=== PATIENT | male | born 1990 | race Caucasian/White ===

== ENCOUNTER 2017-09-13 16:41 | Emergency (ER) | payer OTHER ==
[2017-09-13 17:08] VITALS: BP 134/84; PULSE 71; TEMP 98.5; BMI 25.7
[2017-09-13] MEDS ORDERED: DIPHTH,PERTUSS(ACELL),TET 0.5 ML DISP.SYRIN IM ONE (17:42)
[2017-09-13] MEDS ORDERED: SULFAMETHOXAZOLE/TRIMETHOPRIM 800MG/160MG D.S. TABLET PO ONE (17:42)
[2017-09-13] MEDS ORDERED: SULFAMETHOXAZOLE/TRIMETHOPRIM 800MG/160MG D.S. TABLET ONE (17:44)
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
[2017-09-13] MEDS ORDERED: CEPHALEXIN MONOHYDRATE 500 MG CAPSULE (UD) PO ONE (18:40)
[2017-09-13] MEDS ORDERED: CEPHALEXIN MONOHYDRATE 250 MG CAPSULE (FP) ONE (19:34)
== END 2017-09-13 20:04 | disposition home or self-care (01) ==
LOC: JER 16:41
DX: L03.113 Cellulitis of right upper limb (principal); S61.411A Laceration without foreign body of right hand, initial encounter; W25.XXXA Contact with sharp glass, initial encounter; Y93.89 Activity, other specified; Y92.69 Other specified industrial and construction area as the place of occurrence of the external cause; Y99.0 Civilian activity done for income or pay; F10.10 Alcohol abuse, uncomplicated; F11.10 Opioid abuse, uncomplicated; F13.10 Sedative, hypnotic or anxiolytic abuse, uncomplicated
CPT/HCPCS: 73130-TC-RT; 99281-25

== ENCOUNTER 2017-11-30 20:39 | Inpatient (IN) | payer MEDICARE, OTHER ==
[2017-11-30 21:36] VITALS: BMI 24.4
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
[2017-11-30] MEDS ORDERED: P-EPHED 60MG/TRIPROLIDI 2.5MG TABLET PO PRN (22:37)
[2017-11-30] MEDS ORDERED: MAG HYDROX/AL HYDROX/SIMETH 30 ML UNIT-DOSE CUP PO PRN (22:37)
[2017-11-30] MEDS ORDERED: LOPERAMIDE HCL 2 MG CAPSULE PO PRN (22:37)
[2017-11-30] MEDS ORDERED: hydrOXYzine PAMOATE 50 MG CAPSULE (FP) PO PRN (22:37)
[2017-11-30] MEDS ORDERED: ACETAMINOPHEN 325 MG TABLET (FP) PO PRN (22:37)
[2017-11-30] MEDS ORDERED: MENTHOL/PHENOL 1 EACH UD MM PRN (22:37)
[2017-11-30] MEDS ORDERED: MAGNESIUM HYDROX 2400MG/30ML ORAL SUSPENSION 30 ML CUP PO PRN (22:37)
[2017-11-30] MEDS ORDERED: METHADONE HCL 10 MG TABLET (FOR DETOX USE ONLY) PO ONE ×2 (22:37→23:00)
[2017-11-30] MEDS ORDERED: MAGNESIUM CITRATE 300 ML BOTTLE PO PRN (22:37)
[2017-11-30] MEDS ORDERED: IBUPROFEN 400 MG TABLET (FP) PO PRN (22:37)
[2017-11-30] MEDS ORDERED: guaiFENesin/D-METHORPHAN HB 10 ML UNIT-DOSE CUPS PO PRN (22:37)
[2017-11-30] MEDS: diazePAM 5 MG TABLET PO PRN (23:26)
[2017-11-30 23:41] LABS: URINE APPEARANCE CLEAR; URINE BILIRUBIN NEGATIVE (NEGATIVE); URINE BLOOD NEGATIVE (NEGATIVE); URINE COLOR DKYELLOW; URINE GLUCOSE (UA) NEGATIVE (NEGATIVE); URINE KETONE NEGATIVE (NEGATIVE); URINE LEUK ESTERASE NEGATIVE (NEGATIVE); URINE NITRITE NEGATIVE (NEGATIVE); URINE PROTEIN NEGATIVE (NEGATIVE)
[2017-12-01] MEDS: diazePAM 5 MG TABLET PO PRN ×4 (04:39→21:01)
--- NOTE | 2017-12-01 09:42 | PN ---
BHS COWS - Scale Resting Pulse: 0= [place] 80 or Below Sweatin= Chills/Flushing Restless Observation: 1= Difficult to Sit Still Pupil Size: 0= Normal to Room Light Bone or Joint Aches: 2= Severe Diffuse Aches Runny Nose/ Eye Tearin= Nasal Congestion GI Upset > 30mins: 1= Stomach Cramp Tremor Observation of Outstretched Hands: 1= Tremor [place], Not Seen Yawning Observation: 0= None Anxiety or Irritability: 1=Feels Anxious/Irritable Goose Flesh Skin: 0=Smooth Skin COWS Score: 8 BHS Progress Note (SOAP) Subjective: sweat anxiety restlessness general body aches Objective: 12/01/17 09:42 Vital Signs Temperature 98.1 F 12/01/17 06:12 Pulse Rate 61 12/01/17 06:12 Respiratory Rate 16 12/01/17 06:12 Blood Pressure 91/50 12/01/17 06:12 O2 Sat by Pulse Oximetry (%) Laboratory Last Values Urine Color Dkyellow 11/30/17 Unknown Urine Appearance Clear 11/30/17 Unknown Urine pH 5.0 (5.0-8.0) 11/30/17 Unknown Ur Specific [place] 1.032 (1.001-1.035) 11/30/17 Unknown Urine Protein Negative (NEGATIVE) 11/30/17 Unknown Urine Glucose (UA) Negative (NEGATIVE) 11/30/17 Unknown Urine Ketones Negative (NEGATIVE) 11/30/17 Unknown Urine Blood Negative (NEGATIVE) 11/30/17 Unknown Urine Nitrite Negative (NEGATIVE) 11/30/17 Unknown Urine Bilirubin Negative (NEGATIVE) 11/30/17 Unknown Urine Urobilinogen 2.0 mg/dL (0.2-1.0) 11/30/17 Unknown Ur Leukocyte Esterase Negative (NEGATIVE) 11/30/17 Unknown lab noted Assessment: 12/01/17 09:44 withdrawal sx Plan: continue detox increase oral fluid
[2017-12-01] MEDS ORDERED: METHADONE HCL 10 MG TABLET (FOR DETOX USE ONLY) PO ONE (10:00)
[2017-12-01 10:11] LABS: BILIRUBIN,TOTAL 0.4 mg/dL (0.2-1.0); CHLORIDE 106 mmol/L (98-107); POTASSIUM 3.8 mmol/L (3.5-5.1); SGOT/AST 15 U/L (15-37); SGPT/ALT 24 U/L (12-78); SODIUM 142 mmol/L (136-145); TOT PROT 6.6 g/dl (6.4-8.2)
[2017-12-01 10:20] LABS: ALBUMIN 3.7 g/dl (3.4-5.0); ALK PHOS 59 U/L (45-117); ANION GAP 8 (8-16); BLOOD UREA NITROGEN 17 mg/dL (7-18); CALCIUM 8.3 mg/dL (8.5-10.1); CO2 28 mmol/L (21-32); CREATININE 0.9 mg/dL (0.7-1.3); GLUCOSE,RANDOM 84 mg/dL (74-106)
[2017-12-01] MEDS: PRENATAL VITAMINS W/ FOLIC ACID TABLET (FP) PO SCH (10:21)
[2017-12-01] MEDS: BACITRACIN 0.9 GM PACKET TP SCH (10:21)
[2017-12-01] MEDS: NICOTINE 21 MG/24 HOURS TOPICAL PATCH TD SCH (10:23)
[2017-12-01 10:25] LABS: HEMATOCRIT 39.9 % (35.4-49); HEMOGLOBIN 12.9 GM/dL (11.7-16.9); MCH 30.2 pg (25.7-33.7); MCHC 32.4 g/dl (32.0-35.9); MEAN CELL VOLUME 93.2 fl (80-96); MEAN PLT VOLUME 9.6 fl (7.5-11.1); PLATELET COUNT 158 K/MM3 (134-434); RBC 4.28 M/mm3 (4.00-5.60); RDW 13.7 % (11.9-15.9); WHITE BLOOD COUNT 6.6 K/mm3 (4.0-10.0)
--- NOTE | 2017-12-01 11:53 | CONSULT ---
[facility] Psychiatric Consult - Data Date of interview: 12/01/17 Admission source: [facility] Identifying data: Pt is a 27 year old male, single, without children, unemployed and currently homeless. This is one of multiple admissions for patient. Pt. admitted to for opiate dependence. Substance Abuse History: Following information confirmed with Mr. Pollard: Smoking Cessation. Smoking history: Current every day smoker. Have you smoked in the past 12 months: Yes. Aproximately how many cigarettes per day: 20. Cigars Per Day: 0. Hx Chewing Tobacco Use: No. Initiated information on smoking cessation: Yes. 'Breaking Loose' booklet given: 11/30/17. - Substance & Tx. History. Hx Alcohol Use: No. Hx Substance Use: Yes. Substance Use Type : Heroin, Opiates. Hx Substance Use Treatment: Yes ([facility] a year ago and [facility] March 2017). - Substances Abused. Heroin. Route: Injection. Frequency: Daily. Amount used: 10 BAGS. Age of first use: 20. Date of Last Use: 11/30/17. Oxycontin. Route: Inhalation. Frequency: No use in 30 days. Amount used: 6 - 7 pills / day. Age of first use: 21. Date of Last Use: 11/02/16 Medical History: Heat murmur, hypercholesterolemia and Hx Thyroid Disease: Yes ( 2 NODULES, NO TX YET, PER PATIENT CURRENTLY MONITORED ) Psychiatric History: Pt. denies h/o psychiatric hospitalizations, suicide attempts, and OPC. Pt. c/o insomnia. Physical/Sexual Abuse/Trauma History: Denies. Mental Status Exam - Mental Status Exam Alert and Oriented to: Time, Place, Person Cognitive Function: Good Patient Appearance: Well Groomed Mood: Euthymic Affect: Mood Congruent Patient Behavior: Appropriate, Cooperative Speech Pattern: Clear, Appropriate Voice Loudness: Normal Thought Process: Goal Oriented Thought Disorder: Not Present Hallucinations: Denies Suicidal Ideation: Denies Homicidal Ideation: Denies Insight/Judgement: Poor Sleep: Poorly Appetite: Fair Muscle strength/Tone: Normal Gait/Station: Normal Psychiatric Findings - Problem List ([place] 1, 2,3) (1) Insomnia Current Visit: Yes Status: Acute (2) Opioid dependence Current Visit: Yes Status: Acute (3) Opioid dependence with withdrawal Current Visit: Yes Status: Acute (4) Substance induced mood disorder Current Visit: No Status: Suspected - Initial Treatment Plan Initial Treatment Plan: Psychoeducation provided. Detoxification in progress. Benadryl 50mg qhs prn ordered for insomnia. Pt. reports favorable effect from previously taking benadryl. Verbal consent given. Will continue to monitor.
--- NOTE | 2017-12-01 14:08 | EKG ---
Test Reason : Blood Pressure : / mmHG Vent. Rate : 073 BPM Atrial Rate : 073 BPM P-R Int : 164 ms QRS Dur : 086 ms QT Int : 372 ms P-R-T Axes : 002 018 022 degrees QTc Int : 409 ms NORMAL SINUS RHYTHM NORMAL ECG NO PREVIOUS ECGS AVAILABLE Confirmed by MD ROBERT, LEEANN ([id number]) on 12/01/2017 2:08:16 PM Also confirmed by MD Manuel Edward ([id number]) on 12/01/2017 2:08:34 PM Referred By: Confirmed By:Darryl Manuel MD
[2017-12-01] MEDS: NICOTINE POLACRILEX 2 MG GUM BC PRN ×2 (14:58→21:01)
[2017-12-01] MEDS ORDERED: diphenhydrAMINE HCL 50 MG CAPSULE PO PRN (22:00)
[2017-12-01] MEDS: THIAMINE HCL 100 MG TABLET (FP) PO SCH (22:28)
--- NOTE | 2017-12-02 09:14 | PN ---
BHS COWS - Scale Resting Pulse: 0= [place] 80 or Below Sweatin= Chills/Flushing Restless Observation: 1= Difficult to Sit Still Pupil Size: 0= Normal to Room Light Bone or Joint Aches: 2= Severe Diffuse Aches Runny Nose/ Eye Tearin= Nasal Congestion GI Upset > 30mins: 1= Stomach Cramp Tremor Observation of Outstretched Hands: 1= Tremor [place], Not Seen Yawning Observation: 0= None Anxiety or Irritability: 1=Feels Anxious/Irritable Goose Flesh Skin: 0=Smooth Skin COWS Score: 8 BHS Progress Note (SOAP) Subjective: sweat anxiety joint aches Objective: 12/02/17 09:13 Vital Signs Temperature 96.1 F L 12/02/17 06:19 Pulse Rate 58 L 12/02/17 06:19 Respiratory Rate 16 12/02/17 06:19 Blood Pressure 90/51 12/02/17 06:19 O2 Sat by Pulse Oximetry (%) Laboratory Last Values WBC 6.6 K/mm3 (4.0-10.0) 12/01/17 07:00 RBC 4.28 M/mm3 (4.00-5.60) 12/01/17 07:00 Hgb 12.9 GM/dL (11.7-16.9) 12/01/17 07:00 Hct 39.9 % (35.4-49) 12/01/17 07:00 MCV 93.2 fl (80-96) 12/01/17 07:00 MCH 30.2 pg (25.7-33.7) 12/01/17 07:00 MCHC 32.4 g/dl (32.0-35.9) 12/01/17 07:00 RDW 13.7 % (11.9-15.9) 12/01/17 07:00 Plt Count 158 K/MM3 (134-434) 12/01/17 07:00 MPV 9.6 fl (7.5-11.1) 12/01/17 07:00 Sodium 142 mmol/L (136-145) 12/01/17 07:00 Potassium 3.8 mmol/L (3.5-5.1) 12/01/17 07:00 Chloride 106 mmol/L (98-107) 12/01/17 07:00 Carbon Dioxide 28 mmol/L (21-32) 12/01/17 07:00 Anion Gap 8 (8-16) 12/01/17 07:00 BUN 17 mg/dL (7-18) 12/01/17 07:00 Creatinine 0.9 mg/dL (0.7-1.3) 12/01/17 07:00 Creat Clearance w eGFR > 60 (>60) 12/01/17 07:00 Random Glucose 84 mg/dL (74-106) 12/01/17 07:00 Calcium 8.3 mg/dL (8.5-10.1) L 12/01/17 07:00 Total Bilirubin 0.4 mg/dL (0.2-1.0) 12/01/17 07:00 AST 15 U/L (15-37) D 12/01/17 07:00 ALT 24 U/L (12-78) D 12/01/17 07:00 Alkaline Phosphatase 59 U/L (45-117) D 12/01/17 07:00 Total Protein 6.6 g/dl (6.4-8.2) 12/01/17 07:00 Albumin 3.7 g/dl (3.4-5.0) 12/01/17 07:00 Urine Color Dkyellow 11/30/17 Unknown Urine Appearance Clear 11/30/17 Unknown Urine pH 5.0 (5.0-8.0) 11/30/17 Unknown Ur Specific [place] 1.032 (1.001-1.035) 11/30/17 Unknown Urine Protein Negative (NEGATIVE) 11/30/17 Unknown Urine Glucose (UA) Negative (NEGATIVE) 11/30/17 Unknown Urine Ketones Negative (NEGATIVE) 11/30/17 Unknown Urine Blood Negative (NEGATIVE) 11/30/17 Unknown Urine Nitrite Negative (NEGATIVE) 11/30/17 Unknown Urine Bilirubin Negative (NEGATIVE) 11/30/17 Unknown Urine Urobilinogen 2.0 mg/dL (0.2-1.0) 11/30/17 Unknown Ur Leukocyte Esterase Negative (NEGATIVE) 11/30/17 Unknown RPR Titer Nonreactive (NONREACTIVE) 12/01/17 07:00 Hepatitis C Antibody <0.1 s/co ratio (0.0-0.9) 11/30/17 07:00 HIV 1&2 Antibody Screen Negative 12/01/17 07:00 HIV P24 Antigen Negative 12/01/17 07:00 lab noted Assessment: 12/02/17 09:14 withdrawal sx Plan: continue detox
[2017-12-02] MEDS ORDERED: METHADONE HCL 5 MG TABLET (FOR DETOX USE ONLY) PO ONE (10:00)
[2017-12-02] MEDS: BACITRACIN 0.9 GM PACKET TP SCH (10:08)
[2017-12-02] MEDS: PRENATAL VITAMINS W/ FOLIC ACID TABLET (FP) PO SCH (10:08)
[2017-12-02] MEDS: diazePAM 5 MG TABLET PO PRN ×4 (10:09→22:35)
[2017-12-02] MEDS: NICOTINE POLACRILEX 2 MG GUM BC PRN ×4 (10:10→22:39)
[2017-12-02] MEDS: NICOTINE 21 MG/24 HOURS TOPICAL PATCH TD SCH (10:12)
[2017-12-02] MEDS: SODIUM CHLORIDE NASAL SPRAY 44 ML BOTTLE NS SCH ×2 (12:14→22:34)
[2017-12-02] MEDS: THIAMINE HCL 100 MG TABLET (FP) PO SCH (22:35)
[2017-12-03] MEDS: diazePAM 5 MG TABLET PO PRN ×4 (03:39→22:28)
[2017-12-03] MEDS ORDERED: METHADONE HCL 5 MG TABLET (FOR DETOX USE ONLY) PO ONE (10:00)
[2017-12-03] MEDS: NICOTINE 21 MG/24 HOURS TOPICAL PATCH TD SCH (10:09)
[2017-12-03] MEDS: BACITRACIN 0.9 GM PACKET TP SCH (10:09)
[2017-12-03] MEDS: PRENATAL VITAMINS W/ FOLIC ACID TABLET (FP) PO SCH (10:09)
[2017-12-03] MEDS: SODIUM CHLORIDE NASAL SPRAY 44 ML BOTTLE NS SCH ×2 (10:09→22:45)
--- NOTE | 2017-12-03 10:17 | PN ---
S Progress Note (SOAP) Subjective: joint aches anxiety GI distress tremor agitation Objective: 12/03/17 10:16 Vital Signs Temperature 97.2 F L 12/03/17 06:00 Pulse Rate 58 L 12/03/17 06:00 Respiratory Rate 18 12/03/17 06:00 Blood Pressure 93/55 12/03/17 06:00 O2 Sat by Pulse Oximetry (%) Laboratory Last Values WBC 6.6 K/mm3 (4.0-10.0) 12/01/17 07:00 RBC 4.28 M/mm3 (4.00-5.60) 12/01/17 07:00 Hgb 12.9 GM/dL (11.7-16.9) 12/01/17 07:00 Hct 39.9 % (35.4-49) 12/01/17 07:00 MCV 93.2 fl (80-96) 12/01/17 07:00 MCH 30.2 pg (25.7-33.7) 12/01/17 07:00 MCHC 32.4 g/dl (32.0-35.9) 12/01/17 07:00 RDW 13.7 % (11.9-15.9) 12/01/17 07:00 Plt Count 158 K/MM3 (134-434) 12/01/17 07:00 MPV 9.6 fl (7.5-11.1) 12/01/17 07:00 Sodium 142 mmol/L (136-145) 12/01/17 07:00 Potassium 3.8 mmol/L (3.5-5.1) 12/01/17 07:00 Chloride 106 mmol/L (98-107) 12/01/17 07:00 Carbon Dioxide 28 mmol/L (21-32) 12/01/17 07:00 Anion Gap 8 (8-16) 12/01/17 07:00 BUN 17 mg/dL (7-18) 12/01/17 07:00 Creatinine 0.9 mg/dL (0.7-1.3) 12/01/17 07:00 Creat Clearance w eGFR > 60 (>60) 12/01/17 07:00 Random Glucose 84 mg/dL (74-106) 12/01/17 07:00 Calcium 8.3 mg/dL (8.5-10.1) L 12/01/17 07:00 Total Bilirubin 0.4 mg/dL (0.2-1.0) 12/01/17 07:00 AST 15 U/L (15-37) D 12/01/17 07:00 ALT 24 U/L (12-78) D 12/01/17 07:00 Alkaline Phosphatase 59 U/L (45-117) D 12/01/17 07:00 Total Protein 6.6 g/dl (6.4-8.2) 12/01/17 07:00 Albumin 3.7 g/dl (3.4-5.0) 12/01/17 07:00 Urine Color Dkyellow 11/30/17 Unknown Urine Appearance Clear 11/30/17 Unknown Urine pH 5.0 (5.0-8.0) 11/30/17 Unknown Ur Specific [place] 1.032 (1.001-1.035) 11/30/17 Unknown Urine Protein Negative (NEGATIVE) 11/30/17 Unknown Urine Glucose (UA) Negative (NEGATIVE) 11/30/17 Unknown Urine Ketones Negative (NEGATIVE) 11/30/17 Unknown Urine Blood Negative (NEGATIVE) 11/30/17 Unknown Urine Nitrite Negative (NEGATIVE) 11/30/17 Unknown Urine Bilirubin Negative (NEGATIVE) 11/30/17 Unknown Urine Urobilinogen 2.0 mg/dL (0.2-1.0) 11/30/17 Unknown Ur Leukocyte Esterase Negative (NEGATIVE) 11/30/17 Unknown RPR Titer Nonreactive (NONREACTIVE) 12/01/17 07:00 Hepatitis C Antibody <0.1 s/co ratio (0.0-0.9) 11/30/17 07:00 HIV 1&2 Antibody Screen Negative 12/01/17 07:00 HIV P24 Antigen Negative 12/01/17 07:00 lab noted Assessment: 12/03/17 10:16 withdrawal sx Plan: continue detox
[2017-12-03] MEDS: NICOTINE POLACRILEX 2 MG GUM BC PRN ×4 (11:48→22:29)
[2017-12-03] MEDS ORDERED: COLLOIDAL OATMEAL 1 BAR EACH TP PRN (14:26)
--- NOTE | 2017-12-03 15:00 | PN ---
Psychiatric Progress Note Vital Signs: Vital Signs Period Temp Pulse Resp BP Sys/Elizalde Pulse Ox Last 24 Hr 97.2 F-98.2 F 58-83 18-18 93-129/55-94 Date of Session: 12/03/17 Chief Complaint:: restlessness, muscle ackes, sweating, anxiety HPI: Patient reports taking with good response during previous detoxifications: Gabapentin 300mg po tid. Clonidine 0.2 mg po bid. Seroquel 100mg po qhs Current Medications: Active Medications Generic Name Dose Route Start Last Admin Trade Name Freq PRN Reason Stop Dose Admin Acetaminophen 650 mg 11/30/17 22:37 Tylenol - PO Q4H PRN FEVER Al Hydroxide/Mg Hydroxide 30 ml 11/30/17 22:37 Mylanta Oral Suspension - PO Q6H PRN DYSPEPSIA Bacitracin 0.9 gm 12/01/17 10:00 12/03/17 10:09 Bacitracin - TP 0.9 gm DAILY MONTY Administration Clonidine 0.2 mg 12/03/17 22:00 Catapres - PO BID MONTY Colloidal Oatmeal 1 applic 12/03/17 14:26 Aveeno Soap - TP DAILY PRN HYGEINE Diazepam 10 mg 11/30/17 22:37 12/03/17 14:18 Valium - PO 12/03/17 22:36 10 mg Q4H PRN Administration WITHDRAWAL(CONT SUBST) Diphenhydramine HCl 50 mg 12/01/17 22:00 12/01/17 22:28 Benadryl - PO 50 mg HS PRN Administration INSOMNIA Eucalyptus/Menthol/Phenol/Sorbitol 1 each 11/30/17 22:37 Cepastat Lozenge - MM Q4H PRN SORE THROAT Gabapentin 300 mg 12/03/17 15:00 Neurontin - PO TID MONTY Guaifenesin 10 ml 11/30/17 22:37 Robitussin Dm - PO Q6H PRN COUGH Hydroxyzine Pamoate 50 mg 11/30/17 22:37 Vistaril - PO Q4H PRN AGITATION Ibuprofen 400 mg 11/30/17 22:37 12/02/17 10:11 Motrin - PO 400 mg Q6H PRN Administration PAIN LEVEL 4-6 Loperamide HCl 4 mg 11/30/17 22:37 Imodium - PO Q6H PRN DIARRHEA Magnesium Citrate 300 ml 11/30/17 22:37 Citroma - PO Q48H PRN CONSTIPATION Magnesium Hydroxide 30 ml 11/30/17 22:37 Milk Of Magnesia - PO DAILY PRN CONSTIPATION Methadone HCl 5 mg 12/05/17 06:00 Dolophine - PO 12/05/17 06:01 ONCE@0600 ONE Methadone HCl 10 mg 12/04/17 10:00 Dolophine - PO 12/04/17 10:01 ONCE ONE Nicotine 21 mg 12/01/17 10:00 12/03/17 10:09 Nicoderm Patch - TD 21 mg DAILY MONTY Administration Nicotine Polacrilex 2 mg 11/30/17 22:37 12/03/17 11:48 Nicorette Gum - BC 2 mg Q2H PRN Administration NICOTINE REPLACEMENT RX Multivit/Folic Acid/Iron 1 tab 12/01/17 10:00 12/03/17 10:09 Vitamins (Sjr) - PO 1 tab DAILY MONTY Administration Pseudoephedrine/Triprolidine 1 combo 11/30/17 22:37 Actifed - PO TID PRN NASAL CONGESTION Quetiapine Fumarate 100 mg 12/03/17 22:00 Seroquel - PO HS MONTY Sodium Chloride 2 spray 12/02/17 10:00 12/03/17 10:09 [place] - NS 2 spray BID MONTY Administration Thiamine HCl 100 mg 12/01/17 22:00 12/02/17 22:35 Vitamin B1 - PO 100 mg HS MONTY Administration Medication(s) Change(s): Gabapentin 300mg po tid. Clonidine 0.2 mg po bid. Seroquel 100mg po qhs Mental Status Exam - Mental Status Exam Alert and Oriented to: Place, Person Cognitive Function: Fair Patient Appearance: Well Groomed Mood: Anxious, Irritable Affect: Labile Patient Behavior: Cooperative Speech Pattern: Appropriate Voice Loudness: Normal Thought Process: Goal Oriented Thought Disorder: Being Controlled Hallucinations: Denies Suicidal Ideation: Denies Homicidal Ideation: Denies Insight/Judgement: Fair Sleep: Difficulty falling asleep Appetite: Weight loss Muscle strength/Tone: Normal Gait/Station: Normal Additional Comments: Gabapentin 300mg po tid. Clonidine 0.2 mg po bid. Seroquel 100mg po qhs Psychiatric Treatment Plan - Problem List (1) Anxious mood Current Visit: Yes (2) Opioid dependence Current Visit: Yes (3) Opioid dependence with withdrawal Current Visit: Yes (4) Substance-induced sleep disorder Current Visit: No (5) Alcohol dependence Current Visit: No (6) Alcohol dependence with uncomplicated withdrawal Current Visit: No (7) Cannabis dependence Current Visit: No (8) Nicotine dependence Current Visit: No Qualifiers: Nicotine product type: cigarettes Substance use status: in withdrawal Qualified Code(s): F17.213 - Nicotine dependence, cigarettes, with withdrawal (9) Sedative/hypnotic withdrawal without complication Current Visit: No (10) Drug-induced mood disorder Current Visit: No (11) Substance induced mood disorder Current Visit: No Initial treatment plan: Gabapentin 300mg po tid. Clonidine 0.2 mg po bid. Seroquel 100mg po qhs
[2017-12-03] MEDS ORDERED: cloNIDine HCL 0.1 MG TABLET PO STA (15:14)
[2017-12-03] MEDS: GABAPENTIN 300 MG CAPSULE (FP) PO SCH ×2 (15:32→22:27)
[2017-12-03] MEDS ORDERED: cloNIDine HCL 0.1 MG TABLET PO SCH (22:00)
[2017-12-03] MEDS: QUEtiapine FUMARATE 100 MG TABLET (FP) PO SCH (22:27)
[2017-12-03] MEDS: THIAMINE HCL 100 MG TABLET (FP) PO SCH (22:27)
[2017-12-04] MEDS: GABAPENTIN 300 MG CAPSULE (FP) PO SCH ×3 (08:12→22:45)
[2017-12-04] MEDS ORDERED: METHADONE HCL 10 MG TABLET (FOR DETOX USE ONLY) PO ONE (10:00)
[2017-12-04] MEDS: BACITRACIN 0.9 GM PACKET TP SCH (10:17)
[2017-12-04] MEDS: SODIUM CHLORIDE NASAL SPRAY 44 ML BOTTLE NS SCH ×2 (10:17→22:45)
[2017-12-04] MEDS: PRENATAL VITAMINS W/ FOLIC ACID TABLET (FP) PO SCH (10:18)
[2017-12-04] MEDS: NICOTINE 21 MG/24 HOURS TOPICAL PATCH TD SCH (10:19)
[2017-12-04] MEDS: NICOTINE POLACRILEX 2 MG GUM BC PRN ×4 (10:20→18:13)
[2017-12-04] MEDS ORDERED: CYCLOBENZAPRINE HCL 10 MG TABLET (FP) PO PRN (11:26)
--- NOTE | 2017-12-04 13:28 | PN ---
BHS Progress Note (SOAP) Subjective: ALERT,IRRITABLE,ANXIOUS,INTERRUPTED SLEEP,PAIN IN THE BODY Objective: 12/04/17 13:26 Vital Signs Temperature 96.1 F L 12/04/17 10:11 Pulse Rate 69 12/04/17 10:11 Respiratory Rate 16 12/04/17 10:11 Blood Pressure 105/74 12/04/17 10:11 O2 Sat by Pulse Oximetry (%) Assessment: 12/04/17 13:26 WITHDRAWAL SYMPTOM Plan: CONTINUE DETOX,CONSTIPATION,DISCHARGE IN AM
[2017-12-04] MEDS: QUEtiapine FUMARATE 100 MG TABLET (FP) PO SCH (22:45)
[2017-12-04] MEDS: THIAMINE HCL 100 MG TABLET (FP) PO SCH (22:45)
[2017-12-05] MEDS ORDERED: METHADONE HCL 5 MG TABLET (FOR DETOX USE ONLY) PO ONE (06:00)
[2017-12-05] MEDS: GABAPENTIN 300 MG CAPSULE (FP) PO SCH (06:04)
[2017-12-05] MEDS: NICOTINE POLACRILEX 2 MG GUM BC PRN (06:06)
[2017-12-05 06:31] VITALS: BP 91/52; PULSE 60; TEMP 97.3
--- NOTE | 2017-12-05 08:40 | DS ---
[facility] Detox Discharge Summary Admission Date: 11/30/17 Discharge Date: 12/05/17 - History Present History: Opioid Dependence Additional Comments: FOLLOW UP WITH AFTER CARE PROGRAM ARRANGEMENT Pertinent Past History: NICOTINE DEPENDENCE HYPERLIPEDEMIA - Physical Exam Results Vital Signs: Vital Signs Temperature 97.3 F L 12/05/17 06:30 Pulse Rate 60 12/05/17 06:30 Respiratory Rate 16 12/05/17 06:30 Blood Pressure 91/52 12/05/17 06:30 O2 Sat by Pulse Oximetry (%) Pertinent Admission Physical Exam Findings: WITHDRAWAL SYMPTOM - Treatment Hospital Course: Detox Protocol Followed, Detoxed Safely, Responded well, Discharged Condition Good Patient has Accepted a Rehab Referral to: DECLINED - Medication Discharge Medications: Ambulatory Orders NK [No Known Home Medication] 11/30/17 - Diagnosis (1) Opioid dependence with withdrawal Current Visit: Yes Status: Acute (2) Hyperlipidemia Current Visit: No Status: Chronic Qualifiers: Hyperlipidemia type: unspecified Qualified Code(s): E78.5 - Hyperlipidemia , unspecified (3) Nicotine dependence Current Visit: No Status: Chronic Qualifiers: Nicotine product type: cigarettes Substance use status: in withdrawal Qualified Code(s): F17.213 - Nicotine dependence, cigarettes, with withdrawal - AMA Did Patient Leave Against Medical Advice: No
[2017-12-05] MEDS: SODIUM CHLORIDE NASAL SPRAY 44 ML BOTTLE NS SCH (09:07)
== END 2017-12-05 09:12 | disposition home or self-care (01) | DRG 773 ==
LOC: YASAS 20:39 → Y6N 21:49
PROVIDERS: ADMIT Internal Medicine; ATTEND Internal Medicine
PROC: HZ2ZZZZ Detoxification Services for Substance Abuse Treatment (ICD-10-PCS; principal; 2017-11-30)
DX: F11.23 Opioid dependence with withdrawal (principal); F17.213 Nicotine dependence, cigarettes, with withdrawal; F19.24 Other psychoactive substance dependence with psychoactive substance-induced mood disorder; G47.00 Insomnia, unspecified; E04.1 Nontoxic single thyroid nodule; E78.5 Hyperlipidemia, unspecified; Z59.0 Homelessness
CPT/HCPCS: 36415; 80053; 81003; 85027; 86593; 86803; 87389; 93005; 93010; J0735

== ENCOUNTER 2018-11-02 18:25 | Inpatient (IN) | payer OTHER ==
[2018-11-02 18:53] VITALS: BMI 22.9
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
[2018-11-02] MEDS ORDERED: METHADONE HCL 10 MG TABLET (FOR DETOX USE ONLY) PO ONE (19:39)
[2018-11-02] MEDS ORDERED: cloNIDine HCL 0.1 MG TABLET PO PRN (19:39)
[2018-11-02] MEDS ORDERED: ACETAMINOPHEN 325 MG TABLET (FP) PO PRN (19:40)
[2018-11-02] MEDS ORDERED: MAGNESIUM HYDROX 2400MG/30ML ORAL SUSPENSION 30 ML CUP PO PRN (19:40)
[2018-11-02] MEDS ORDERED: MENTHOL/PHENOL 1 EACH UD MM PRN (19:40)
[2018-11-02] MEDS ORDERED: MAGNESIUM CITRATE 300 ML BOTTLE PO PRN (19:40)
[2018-11-02] MEDS ORDERED: guaiFENesin/D-METHORPHAN HB 10 ML UNIT-DOSE CUPS PO PRN (19:40)
[2018-11-02] MEDS ORDERED: IBUPROFEN 400 MG TABLET (FP) PO PRN (19:40)
[2018-11-02] MEDS ORDERED: P-EPHED 60MG/TRIPROLIDI 2.5MG TABLET PO PRN (19:40)
[2018-11-02] MEDS ORDERED: LOPERAMIDE HCL 2 MG CAPSULE PO PRN (19:40)
[2018-11-02] MEDS: diazePAM 5 MG TABLET PO PRN (23:35)
[2018-11-02] MEDS: METHADONE HCL 10 MG TABLET (FOR DETOX USE ONLY) PO ONE ×2 (23:35→23:36)
[2018-11-02] MEDS: THIAMINE HCL 100 MG TABLET (FP) PO SCH (23:35)
[2018-11-03 09:59] LABS: RBC 4.65 M/mm3 (4.00-5.60)
[2018-11-03] MEDS ORDERED: METHADONE HCL 10 MG TABLET (FOR DETOX USE ONLY) PO ONE (10:00)
[2018-11-03 10:03] LABS: MCH 30.1 pg (25.7-33.7); MCHC 32.5 g/dl (32.0-35.9); MEAN CELL VOLUME 92.5 fl (80-96); MEAN PLT VOLUME 9.4 fl (7.5-11.1); PLATELET COUNT 197 K/MM3 (134-434); RDW 12.7 % (11.9-15.9); WHITE BLOOD COUNT 6.7 K/mm3 (4.0-10.0)
--- NOTE | 2018-11-03 10:17 | PN ---
BHS COWS - Scale Resting Pulse: 0= ME 80 or Below Sweatin= Chills/Flushing Restless Observation: 0= Sits Still Pupil Size: 1= Pupils >than Normal Bone or Joint Aches: 2= Severe Diffuse Aches Runny Nose/ Eye Tearin= Nasal Congestion GI Upset > 30mins: 2= Nausea/Diarrhea Tremor Observation of Outstretched Hands: 2= Slight Tremor Visible Yawning Observation: 2= >3x During Session Anxiety or Irritability: 2=Irritable/Anxious Goose Flesh Skin: 0=Smooth Skin COWS Score: 13 BHS Progress Note (SOAP) Subjective: body aches nausea gi distress tremor sweat stuffy nose Objective: 11/03/18 12:50 Vital Signs Temperature 98.6 F 11/03/18 10:57 Pulse Rate 63 11/03/18 10:57 Respiratory Rate 20 11/03/18 10:57 Blood Pressure 100/67 11/03/18 10:57 O2 Sat by Pulse Oximetry (%) Laboratory Last Values WBC 6.7 K/mm3 (4.0-10.0) 11/03/18 08:00 RBC 4.65 M/mm3 (4.00-5.60) 11/03/18 08:00 Hgb 14.0 GM/dL (11.7-16.9) 11/03/18 08:00 Hct 43.0 % (35.4-49) 11/03/18 08:00 MCV 92.5 fl (80-96) 11/03/18 08:00 MCH 30.1 pg (25.7-33.7) 11/03/18 08:00 MCHC 32.5 g/dl (32.0-35.9) 11/03/18 08:00 RDW 12.7 % (11.9-15.9) 11/03/18 08:00 Plt Count 197 K/MM3 (134-434) D 11/03/18 08:00 MPV 9.4 fl (7.5-11.1) 11/03/18 08:00 Sodium 141 mmol/L (136-145) 11/03/18 08:00 Potassium 3.4 mmol/L (3.5-5.1) L 11/03/18 08:00 Chloride 104 mmol/L (98-107) 11/03/18 08:00 Carbon Dioxide 29 mmol/L (21-32) 11/03/18 08:00 Anion Gap 7 MMOL/L (8-16) L 11/03/18 08:00 BUN 17 mg/dL (7-18) 11/03/18 08:00 Creatinine 0.9 mg/dL (0.55-1.3) 11/03/18 08:00 Creat Clearance w eGFR > 60 (>60) 11/03/18 08:00 Random Glucose 83 mg/dL (74-106) 11/03/18 08:00 Calcium 8.5 mg/dL (8.5-10.1) 11/03/18 08:00 Total Bilirubin 1.0 mg/dL (0.2-1) 11/03/18 08:00 AST 20 U/L (15-37) 11/03/18 08:00 ALT 31 U/L (13-61) 11/03/18 08:00 Alkaline Phosphatase 56 U/L (45-117) 11/03/18 08:00 Total Protein 7.1 g/dl (6.4-8.2) 11/03/18 08:00 Albumin 3.8 g/dl (3.4-5.0) 11/03/18 08:00 RPR Titer Nonreactive (NONREACTIVE) 11/03/18 08:00 lab noted repeat K+ 11/03/18 12:51 Assessment: 11/03/18 12:52 withdrawal sx Plan: continue detox
[2018-11-03] MEDS ORDERED: ONDANSETRON *ODT* 4 MG TABLET SL ONE (10:40)
[2018-11-03] MEDS: PRENATAL VITAMINS W/ FOLIC ACID TABLET (FP) PO SCH (10:41)
[2018-11-03] MEDS: NICOTINE 14 MG/24 HOURS TOPICAL PATCH TD SCH (10:41)
[2018-11-03] MEDS: diazePAM 5 MG TABLET PO PRN ×4 (10:41→22:36)
[2018-11-03 11:18] LABS: ALBUMIN 3.8 g/dl (3.4-5.0); ALK PHOS 56 U/L (45-117); ANION GAP 7 MMOL/L (8-16); BLOOD UREA NITROGEN 17 mg/dL (7-18); CALCIUM 8.5 mg/dL (8.5-10.1); CHLORIDE 104 mmol/L (98-107); CO2 29 mmol/L (21-32); CREATININE 0.9 mg/dL (0.55-1.3); GLUCOSE,RANDOM 83 mg/dL (74-106); POTASSIUM 3.4 mmol/L (3.5-5.1); SGOT/AST 20 U/L (15-37); SGPT/ALT 31 U/L (13-61); SODIUM 141 mmol/L (136-145); TOT PROT 7.1 g/dl (6.4-8.2)
[2018-11-03] MEDS: SODIUM CHLORIDE NASAL SPRAY 44 ML BOTTLE NS SCH ×2 (14:32→22:05)
[2018-11-03 18:44] LABS: URINE APPEARANCE TURBID; URINE BILIRUBIN NEGATIVE (<2.0 mg/dL); URINE COLOR YELLOW; URINE GLUCOSE (UA) NEGATIVE (NEGATIVE); URINE KETONE NEGATIVE (NEGATIVE); URINE LEUK ESTERASE NEGATIVE (NEGATIVE); URINE NITRITE NEGATIVE (NEGATIVE); URINE PROTEIN 1+ (NEGATIVE)
[2018-11-03 18:59] LABS: URINE HYALINE CAST 20 /lpf; URINE MUCUS FEW
[2018-11-03] MEDS: MELATONIN 5 MG TABLETS PO PRN (22:05)
[2018-11-03] MEDS: THIAMINE HCL 100 MG TABLET (FP) PO SCH (22:05)
[2018-11-03] MEDS: NICOTINE POLACRILEX 4 MG GUM BUC PRN (22:37)
[2018-11-04] MEDS: SODIUM CHLORIDE NASAL SPRAY 44 ML BOTTLE NS SCH ×3 (06:47→21:27)
[2018-11-04] MEDS: PRENATAL VITAMINS W/ FOLIC ACID TABLET (FP) PO SCH (09:09)
[2018-11-04] MEDS: diazePAM 5 MG TABLET PO PRN ×4 (09:09→21:26)
[2018-11-04] MEDS: NICOTINE POLACRILEX 4 MG GUM BUC PRN ×4 (09:13→21:29)
[2018-11-04] MEDS: NICOTINE 14 MG/24 HOURS TOPICAL PATCH TD SCH (09:16)
--- NOTE | 2018-11-04 09:31 | PN ---
BHS COWS - Scale Resting Pulse: 0= MS 80 or Below Sweatin= Chills/Flushing Restless Observation: 1= Difficult to Sit Still Pupil Size: 1= Pupils >than Normal Bone or Joint Aches: 2= Severe Diffuse Aches Runny Nose/ Eye Tearin= Nasal Congestion GI Upset > 30mins: 1= Stomach Cramp Tremor Observation of Outstretched Hands: 2= Slight Tremor Visible Yawning Observation: 1= 1-2x During Session Anxiety or Irritability: 2=Irritable/Anxious Goose Flesh Skin: 0=Smooth Skin COWS Score: 12 BHS Progress Note (SOAP) Subjective: body aches muscle cramping tremor anxiety restlessness Objective: 11/04/18 09:29 Vital Signs Temperature 97.0 F L 11/04/18 09:15 Pulse Rate 56 L 11/04/18 09:15 Respiratory Rate 18 11/04/18 09:15 Blood Pressure 108/53 L 11/04/18 09:15 O2 Sat by Pulse Oximetry (%) Laboratory Last Values WBC 6.7 K/mm3 (4.0-10.0) 11/03/18 08:00 RBC 4.65 M/mm3 (4.00-5.60) 11/03/18 08:00 Hgb 14.0 GM/dL (11.7-16.9) 11/03/18 08:00 Hct 43.0 % (35.4-49) 11/03/18 08:00 MCV 92.5 fl (80-96) 11/03/18 08:00 MCH 30.1 pg (25.7-33.7) 11/03/18 08:00 MCHC 32.5 g/dl (32.0-35.9) 11/03/18 08:00 RDW 12.7 % (11.9-15.9) 11/03/18 08:00 Plt Count 197 K/MM3 (134-434) D 11/03/18 08:00 MPV 9.4 fl (7.5-11.1) 11/03/18 08:00 Sodium 141 mmol/L (136-145) 11/03/18 08:00 Potassium 3.4 mmol/L (3.5-5.1) L 11/03/18 08:00 Chloride 104 mmol/L (98-107) 11/03/18 08:00 Carbon Dioxide 29 mmol/L (21-32) 11/03/18 08:00 Anion Gap 7 MMOL/L (8-16) L 11/03/18 08:00 BUN 17 mg/dL (7-18) 11/03/18 08:00 Creatinine 0.9 mg/dL (0.55-1.3) 11/03/18 08:00 Creat Clearance w eGFR > 60 (>60) 11/03/18 08:00 Random Glucose 83 mg/dL (74-106) 11/03/18 08:00 Calcium 8.5 mg/dL (8.5-10.1) 11/03/18 08:00 Total Bilirubin 1.0 mg/dL (0.2-1) 11/03/18 08:00 AST 20 U/L (15-37) 11/03/18 08:00 ALT 31 U/L (13-61) 11/03/18 08:00 Alkaline Phosphatase 56 U/L (45-117) 11/03/18 08:00 Total Protein 7.1 g/dl (6.4-8.2) 11/03/18 08:00 Albumin 3.8 g/dl (3.4-5.0) 11/03/18 08:00 Urine Color Yellow 11/03/18 10:55 Urine Appearance Turbid 11/03/18 10:55 Urine pH 6.0 (5.0-8.0) 11/03/18 10:55 Ur Specific [place] 1.030 (1.010-1.035) 11/03/18 10:55 Urine Protein 1+ (NEGATIVE) H 11/03/18 10:55 Urine Glucose (UA) Negative (NEGATIVE) 11/03/18 10:55 Urine Ketones Negative (NEGATIVE) 11/03/18 10:55 Urine Blood Negative (NEGATIVE) 11/03/18 10:55 Urine Nitrite Negative (NEGATIVE) 11/03/18 10:55 Urine Bilirubin Negative (<2.0 mg/dL) 11/03/18 10:55 Urine Urobilinogen 2.0 mg/dL (0.2-1.0) 11/03/18 10:55 Ur Leukocyte Esterase Negative (NEGATIVE) 11/03/18 10:55 Urine WBC (Auto) 58 /hpf (3-5) 11/03/18 10:55 Urine RBC (Auto) 5 /hpf (0-3) 11/03/18 10:55 Hyaline Casts 20 /lpf 11/03/18 10:55 Urine Mucus Few 11/03/18 10:55 RPR Titer Nonreactive (NONREACTIVE) 11/03/18 08:00 lab noted 11/04/18 09:30 repeat K+ pending Assessment: 11/04/18 09:30 withdrawal sx Plan: continue detox
[2018-11-04] MEDS ORDERED: BACLOFEN 10 MG TABLET (FP) PO ONE (09:45)
[2018-11-04] MEDS ORDERED: METHADONE HCL 5 MG TABLET (FOR DETOX USE ONLY) PO ONE (10:00)
[2018-11-04] MEDS: MAG HYDROX/AL HYDROX/SIMETH 30 ML UNIT-DOSE CUP PO PRN (17:12)
[2018-11-04] MEDS: THIAMINE HCL 100 MG TABLET (FP) PO SCH (21:26)
[2018-11-04] MEDS: MELATONIN 5 MG TABLETS PO PRN (21:29)
[2018-11-05] MEDS: SODIUM CHLORIDE NASAL SPRAY 44 ML BOTTLE NS SCH ×3 (07:01→22:07)
[2018-11-05] MEDS: diazePAM 5 MG TABLET PO PRN ×3 (08:03→16:35)
[2018-11-05] MEDS ORDERED: METHADONE HCL 5 MG TABLET (FOR DETOX USE ONLY) PO ONE (10:00)
[2018-11-05] MEDS ORDERED: cloNIDine HCL 0.1 MG TABLET PO ONE (10:40)
[2018-11-05] MEDS: PRENATAL VITAMINS W/ FOLIC ACID TABLET (FP) PO SCH (10:44)
[2018-11-05] MEDS: NICOTINE 14 MG/24 HOURS TOPICAL PATCH TD SCH (10:44)
[2018-11-05] MEDS: CYCLOBENZAPRINE HCL 10 MG TABLET (FP) PO PRN ×2 (10:52→22:05)
--- NOTE | 2018-11-05 11:26 | PN ---
S Progress Note (SOAP) Subjective: alert,irritable,anxious,interrupted sleep,pain in the body and back Objective: 11/05/18 11:25 Vital Signs Temperature 96.8 F L 11/05/18 09:55 Pulse Rate 85 11/05/18 09:55 Respiratory Rate 17 11/05/18 09:55 Blood Pressure 112/62 11/05/18 09:55 O2 Sat by Pulse Oximetry (%) Assessment: 11/05/18 11:26 withdrawal symptom Plan: continue detox
[2018-11-05] MEDS: NICOTINE POLACRILEX 4 MG GUM BUC PRN ×4 (12:30→22:06)
[2018-11-05] MEDS: MAG HYDROX/AL HYDROX/SIMETH 30 ML UNIT-DOSE CUP PO PRN (20:04)
[2018-11-05] MEDS: MELATONIN 5 MG TABLETS PO PRN (22:05)
[2018-11-05] MEDS: THIAMINE HCL 100 MG TABLET (FP) PO SCH (22:05)
[2018-11-05] MEDS: cloNIDine HCL 0.1 MG TABLET PO SCH (22:05)
[2018-11-06] MEDS: SODIUM CHLORIDE NASAL SPRAY 44 ML BOTTLE NS SCH ×3 (07:26→23:35)
[2018-11-06] MEDS ORDERED: METHADONE HCL 10 MG TABLET (FOR DETOX USE ONLY) PO ONE (10:00)
[2018-11-06] MEDS: NICOTINE 14 MG/24 HOURS TOPICAL PATCH TD SCH (10:28)
[2018-11-06] MEDS: cloNIDine HCL 0.1 MG TABLET PO SCH ×2 (10:28→22:31)
[2018-11-06] MEDS: PRENATAL VITAMINS W/ FOLIC ACID TABLET (FP) PO SCH (10:28)
[2018-11-06] MEDS: CYCLOBENZAPRINE HCL 10 MG TABLET (FP) PO PRN ×2 (10:30→20:28)
[2018-11-06] MEDS: NICOTINE POLACRILEX 4 MG GUM BUC PRN ×4 (12:10→20:28)
--- NOTE | 2018-11-06 12:52 | PN ---
BHS Progress Note (SOAP) Subjective: DETOX PROCEEDING WELL. ALERT O X 3. Objective: 11/06/18 12:50 Vital Signs 11/06/18 11/06/18 11/06/18 06:12 06:30 10:04 Temperature 97.3 F L 97.1 F L Pulse Rate 52 L 70 Respiratory 16 18 16 Rate Blood Pressure 91/55 L 112/74 Laboratory Tests 11/03/18 11/03/18 11/03/18 08:00 08:00 08:00 WBC 6.7 RBC 4.65 Hgb 14.0 Hct 43.0 MCV 92.5 MCH 30.1 MCHC 32.5 RDW 12.7 Plt Count 197 D MPV 9.4 Sodium 141 Potassium 3.4 L Chloride 104 Carbon Dioxide 29 Anion Gap 7 L BUN 17 Creatinine 0.9 Creat Clearance w eGFR > 60 Random Glucose 83 Calcium 8.5 Total Bilirubin 1.0 AST 20 ALT 31 Alkaline Phosphatase 56 Total Protein 7.1 Albumin 3.8 Urine Color Urine Appearance Urine pH Ur Specific [place] Urine Protein Urine Glucose (UA) Urine Ketones Urine Blood Urine Nitrite Urine Bilirubin Urine Urobilinogen Ur Leukocyte Esterase Urine WBC (Auto) Urine RBC (Auto) Hyaline Casts Urine Mucus RPR Titer Nonreactive 11/03/18 11/04/18 10:55 07:00 WBC RBC Hgb Hct MCV MCH MCHC RDW Plt Count MPV Sodium Potassium 4.5 Chloride Carbon Dioxide Anion Gap BUN Creatinine Creat Clearance w eGFR Random Glucose Calcium Total Bilirubin AST ALT Alkaline Phosphatase Total Protein Albumin Urine Color Yellow Urine Appearance Turbid Urine pH 6.0 Ur Specific [place] 1.030 Urine Protein 1+ H Urine Glucose (UA) Negative Urine Ketones Negative Urine Blood Negative Urine Nitrite Negative Urine Bilirubin Negative Urine Urobilinogen 2.0 Ur Leukocyte Esterase Negative Urine WBC (Auto) 58 Urine RBC (Auto) 5 Hyaline Casts 20 Urine Mucus Few RPR Titer Assessment: 11/06/18 12:51 DECREASED WITHDRAWAL SX Plan: CONTINUE DETOX INCREASE PO FLUIDS REPEAT UA TODAY
[2018-11-06] MEDS: MAG HYDROX/AL HYDROX/SIMETH 30 ML UNIT-DOSE CUP PO PRN (15:35)
[2018-11-06] MEDS: hydrOXYzine PAMOATE 50 MG CAPSULE (FP) PO PRN ×2 (17:49→22:31)
[2018-11-06] MEDS: THIAMINE HCL 100 MG TABLET (FP) PO SCH (22:31)
[2018-11-07] MEDS ORDERED: METHADONE HCL 5 MG TABLET (FOR DETOX USE ONLY) PO ONE (06:00)
[2018-11-07 06:11] VITALS: BP 94/53; PULSE 50; TEMP 97
[2018-11-07] MEDS: CYCLOBENZAPRINE HCL 10 MG TABLET (FP) PO PRN (06:12)
--- NOTE | 2018-11-07 12:09 | DS ---
[facility] Detox Discharge Summary Admission Date: 11/02/18 Discharge Date: 11/07/18 - History Present History: Opioid Dependence Additional Comments: Patient completed detox successfully and was discharged safely. Pertinent Past History: Opioid dependence HLD Thyroid nodules Nicotine dependence - Physical Exam Results Vital Signs: Vital Signs Temperature 97 F L 11/07/18 06:10 Pulse Rate 50 L 11/07/18 06:10 Respiratory Rate 16 11/07/18 06:10 Blood Pressure 94/53 L 11/07/18 06:10 O2 Sat by Pulse Oximetry (%) Hypotension noted 94/53; denies any symptoms, encouraged PO water intake Pertinent Admission Physical Exam Findings: Withdrawal symptoms Laboratory Tests 11/03/18 11/03/18 11/03/18 08:00 08:00 08:00 WBC 6.7 RBC 4.65 Hgb 14.0 Hct 43.0 MCV 92.5 MCH 30.1 MCHC 32.5 RDW 12.7 Plt Count 197 D MPV 9.4 Sodium 141 Potassium 3.4 L Chloride 104 Carbon Dioxide 29 Anion Gap 7 L BUN 17 Creatinine 0.9 Creat Clearance w eGFR > 60 Random Glucose 83 Calcium 8.5 Total Bilirubin 1.0 AST 20 ALT 31 Alkaline Phosphatase 56 Total Protein 7.1 Albumin 3.8 Urine Color Urine Appearance Urine pH Ur Specific [place] Urine Protein Urine Glucose (UA) Urine Ketones Urine Blood Urine Nitrite Urine Bilirubin Urine Urobilinogen Ur Leukocyte Esterase Urine WBC (Auto) Urine RBC (Auto) Hyaline Casts Urine Mucus RPR Titer Nonreactive 11/03/18 11/04/18 10:55 07:00 WBC RBC Hgb Hct MCV MCH MCHC RDW Plt Count MPV Sodium Potassium 4.5 Chloride Carbon Dioxide Anion Gap BUN Creatinine Creat Clearance w eGFR Random Glucose Calcium Total Bilirubin AST ALT Alkaline Phosphatase Total Protein Albumin Urine Color Yellow Urine Appearance Turbid Urine pH 6.0 Ur Specific [place] 1.030 Urine Protein 1+ H Urine Glucose (UA) Negative Urine Ketones Negative Urine Blood Negative Urine Nitrite Negative Urine Bilirubin Negative Urine Urobilinogen 2.0 Ur Leukocyte Esterase Negative Urine WBC (Auto) 58 Urine RBC (Auto) 5 Hyaline Casts 20 Urine Mucus Few RPR Titer Labs reviewed: UA shows 1+ protein - Treatment Hospital Course: Detox Protocol Followed, Detoxed Safely, Responded well, Discharged Condition Good - Medication Discharge Medications: Ambulatory Orders NK [No Known Home Medication] 11/30/17 - Diagnosis (1) Opioid dependence with withdrawal Status: Acute (2) Thyroid nodule Status: Chronic (3) Hyperlipidemia Status: Chronic Qualifiers: Hyperlipidemia type: unspecified Qualified Code(s): E78.5 - Hyperlipidemia , unspecified (4) Nicotine dependence Status: Chronic Qualifiers: Nicotine product type: cigarettes Substance use status: in withdrawal Qualified Code(s): F17.213 - Nicotine dependence, cigarettes, with withdrawal (5) Hypotension Status: Acute - AMA Did Patient Leave Against Medical Advice: No (F/U with PCP within 1-2 weeks)
== END 2018-11-07 06:42 | disposition home or self-care (01) | DRG 773 ==
LOC: YASAS 18:25 → Y3N 22:49
PROC: HZ2ZZZZ Detoxification Services for Substance Abuse Treatment (ICD-10-PCS; principal; 2018-11-02)
DX: F11.23 Opioid dependence with withdrawal (principal); F17.213 Nicotine dependence, cigarettes, with withdrawal; F32.9 Major depressive disorder, single episode, unspecified; I95.9 Hypotension, unspecified; E86.0 Dehydration; E78.5 Hyperlipidemia, unspecified; E04.1 Nontoxic single thyroid nodule; R00.2 Palpitations
CPT/HCPCS: 36415; 80053; 81003; 81015; 84132; 85027; 86593; J0475; J0735; Q0162

== ENCOUNTER 2021-02-22 17:56 | Inpatient (IN) | payer OTHER ==
[2021-02-22 20:20] VITALS: BMI 20.9
[2021-02-23] MEDS ORDERED: MAGNESIUM HYDROX 2400MG/30ML ORAL SUSPENSION 30 ML CUP PO PRN (00:23)
[2021-02-23] MEDS ORDERED: IBUPROFEN 400 MG TABLET (FP) PO PRN (00:23)
[2021-02-23] MEDS ORDERED: ACETAMINOPHEN 325 MG TABLET (FP) PO PRN ×2 (00:23)
[2021-02-23] MEDS ORDERED: MENTHOL/PHENOL 1 EACH UD MM PRN (00:23)
[2021-02-23] MEDS ORDERED: BISMUTH SUBSALICYLATE 524 MG/30 ML UD PO PRN (00:23)
[2021-02-23] MEDS ORDERED: ONDANSETRON *ODT* 4 MG TABLET SL PRN (00:23)
[2021-02-23] MEDS ORDERED: MAG HYDROX/AL HYDROX/SIMETH 30 ML UNIT-DOSE CUP PO PRN (00:23)
[2021-02-23] MEDS ORDERED: MAGNESIUM CITRATE 300 ML BOTTLE PO PRN (00:23)
[2021-02-23] MEDS ORDERED: METHADONE HCL 10 MG TABLET (FOR DETOX USE ONLY) PO ONE (00:23)
[2021-02-23] MEDS ORDERED: METHADONE HCL 10 MG TABLET (FOR DETOX USE ONLY) ONE (01:47)
[2021-02-23] MEDS ORDERED: cloNIDine HCL 0.1 MG TABLET ONE (01:47)
[2021-02-23] MEDS: cloNIDine HCL 0.1 MG TABLET PO PRN (01:48)
[2021-02-23] MEDS: METHOCARBAMOL 500 MG TABLET PO PRN ×2 (10:56→22:58)
[2021-02-23] MEDS: NICOTINE 14 MG/24 HOURS TOPICAL PATCH TD SCH (10:56)
[2021-02-23] MEDS: PRENATAL VITAMINS W/ FOLIC ACID TABLET (FP) PO SCH (10:56)
[2021-02-23 10:59] LABS: HEMATOCRIT 36.6 % (35.4-49); HEMOGLOBIN 12.3 GM/dL (11.7-16.9); MCH 31.1 pg (25.7-33.7); MCHC 33.6 g/dl (32.0-35.9); MEAN CELL VOLUME 92.7 fl (80-96); MEAN PLT VOLUME 9.8 fl (7.5-11.1); PLATELET COUNT 163 K/MM3 (134-434); RBC 3.95 M/mm3 (4.00-5.60); RDW 13.2 % (11.9-15.9); WHITE BLOOD COUNT 4.6 K/mm3 (4.0-10.0)
[2021-02-23 11:16] LABS: BLOOD UREA NITROGEN 15.9 mg/dL (7-18)
[2021-02-23 11:18] LABS: ALBUMIN 3.7 g/dl (3.4-5.0)
[2021-02-23 11:22] LABS: BILIRUBIN,TOTAL 0.8 mg/dL (0.2-1)
[2021-02-23 11:23] LABS: TOT PROT 6.5 g/dl (6.4-8.2)
[2021-02-23 11:32] LABS: CALCIUM 8.5 mg/dL (8.5-10.1)
[2021-02-23] MEDS: THIAMINE HCL 100 MG TABLET (FP) PO SCH (22:57)
[2021-02-23] MEDS: MELATONIN 5 MG TABLETS PO SCH (22:57)
[2021-02-24] MEDS ORDERED: METHADONE HCL 5 MG TABLET (FOR DETOX USE ONLY) ONE (08:43)
[2021-02-24] MEDS ORDERED: METHADONE HCL 10 MG TABLET (FOR DETOX USE ONLY) ONE (08:44)
[2021-02-24] MEDS: METHOCARBAMOL 500 MG TABLET PO PRN ×2 (09:23→17:40)
[2021-02-24] MEDS: PRENATAL VITAMINS W/ FOLIC ACID TABLET (FP) PO SCH (09:23)
[2021-02-24] MEDS: NICOTINE 14 MG/24 HOURS TOPICAL PATCH TD SCH (09:23)
[2021-02-24] MEDS ORDERED: METHADONE (DETOX) 20 MG, METHADONE (DETOX) 5 MG PO ONE (10:00)
[2021-02-24] MEDS: NICOTINE POLACRILEX 2 MG GUM BUC PRN ×2 (16:01→21:28)
[2021-02-24] MEDS: diazePAM 5 MG TABLET PO PRN ×2 (17:40→22:49)
[2021-02-24] MEDS: MELATONIN 5 MG TABLETS PO SCH (22:30)
[2021-02-24] MEDS: THIAMINE HCL 100 MG TABLET (FP) PO SCH (22:30)
[2021-02-24] MEDS: hydrOXYzine PAMOATE 25 MG CAPSULE (FP) PO PRN (22:32)
[2021-02-25] MEDS: diazePAM 5 MG TABLET PO PRN ×3 (07:23→18:07)
[2021-02-25] MEDS: hydrOXYzine PAMOATE 25 MG CAPSULE (FP) PO PRN (07:23)
[2021-02-25] MEDS ORDERED: METHADONE HCL 10 MG TABLET (FOR DETOX USE ONLY) PO ONE (10:00)
[2021-02-25] MEDS: METHOCARBAMOL 500 MG TABLET PO PRN ×2 (10:07→22:19)
[2021-02-25] MEDS: PRENATAL VITAMINS W/ FOLIC ACID TABLET (FP) PO SCH (10:08)
[2021-02-25] MEDS: NICOTINE 14 MG/24 HOURS TOPICAL PATCH TD SCH (10:08)
[2021-02-25] MEDS: NICOTINE POLACRILEX 2 MG GUM BUC PRN ×2 (12:03→18:08)
[2021-02-25] MEDS ORDERED: ONDANSETRON *ODT* 4 MG TABLET SL ONE (12:04)
[2021-02-25] MEDS ORDERED: DICYCLOMINE HCL 10 MG CAPSULE PO ONE (12:06)
[2021-02-25] MEDS: MELATONIN 5 MG TABLETS PO SCH (22:19)
[2021-02-25] MEDS: THIAMINE HCL 100 MG TABLET (FP) PO SCH (22:19)
[2021-02-25] MEDS: cloNIDine HCL 0.1 MG TABLET PO PRN (22:21)
[2021-02-26] MEDS: diazePAM 5 MG TABLET PO PRN (01:18)
[2021-02-26 06:07] LABS: SARS-CoV-2 NAA Not Detected (Not Detected)
[2021-02-26 07:15] VITALS: BP 105/59; PULSE 60; TEMP 97
[2021-02-26] MEDS ORDERED: METHADONE HCL 5 MG TABLET (FOR DETOX USE ONLY) ONE (08:29)
[2021-02-26] MEDS ORDERED: METHADONE HCL 10 MG TABLET (FOR DETOX USE ONLY) ONE (08:29)
[2021-02-26] MEDS ORDERED: METHADONE (DETOX) 10 MG, METHADONE (DETOX) 5 MG PO ONE (10:00)
[2021-02-26] MEDS: NICOTINE 14 MG/24 HOURS TOPICAL PATCH TD SCH (10:08)
[2021-02-26] MEDS: PRENATAL VITAMINS W/ FOLIC ACID TABLET (FP) PO SCH (10:08)
[2021-02-27] MEDS ORDERED: METHADONE HCL 10 MG TABLET (FOR DETOX USE ONLY) PO ONE (10:00)
[2021-02-28] MEDS ORDERED: METHADONE HCL 5 MG TABLET (FOR DETOX USE ONLY) PO ONE (06:00)
== END 2021-02-26 12:00 | disposition left against medical advice (07) | DRG 770 ==
LOC: YASAS 17:56 → Y6N 02-23 09:51
PROVIDERS: ADMIT Allergy & Immunology; ATTEND Allergy & Immunology
PROC: HZ2ZZZZ Detoxification Services for Substance Abuse Treatment (ICD-10-PCS; principal; 2021-02-23)
DX: F11.23 Opioid dependence with withdrawal (principal); F14.10 Cocaine abuse, uncomplicated; F17.210 Nicotine dependence, cigarettes, uncomplicated; F19.282 Other psychoactive substance dependence with psychoactive substance-induced sleep disorder; F19.24 Other psychoactive substance dependence with psychoactive substance-induced mood disorder; E78.5 Hyperlipidemia, unspecified; N39.0 Urinary tract infection, site not specified; R01.1 Cardiac murmur, unspecified; Z87.828 Personal history of other (healed) physical injury and trauma; Z87.448 Personal history of other diseases of urinary system; Z56.0 Unemployment, unspecified
CPT/HCPCS: 36415; 80053; 85027; 86780; 93005; 93010; C9803; J0735; Q0162; U0003; U0005

== ENCOUNTER 2021-02-27 19:02 | Inpatient (IN) | payer OTHER ==
[2021-02-27 20:31] VITALS: BMI 20.7
[2021-02-27] MEDS ORDERED: METHOCARBAMOL 500 MG TABLET PO PRN (21:07)
[2021-02-27] MEDS ORDERED: MAGNESIUM HYDROX 2400MG/30ML ORAL SUSPENSION 30 ML CUP PO PRN (21:07)
[2021-02-27] MEDS ORDERED: MENTHOL/PHENOL 1 EACH UD MM PRN (21:07)
[2021-02-27] MEDS ORDERED: ONDANSETRON *ODT* 4 MG TABLET SL PRN (21:07)
[2021-02-27] MEDS ORDERED: MAGNESIUM CITRATE 300 ML BOTTLE PO PRN (21:07)
[2021-02-27] MEDS ORDERED: IBUPROFEN 400 MG TABLET (FP) PO PRN (21:07)
[2021-02-27] MEDS ORDERED: MAG HYDROX/AL HYDROX/SIMETH 30 ML UNIT-DOSE CUP PO PRN (21:07)
[2021-02-27] MEDS ORDERED: ACETAMINOPHEN 325 MG TABLET (FP) PO PRN ×2 (21:07)
[2021-02-27] MEDS ORDERED: BISMUTH SUBSALICYLATE 524 MG/30 ML UD PO PRN (21:07)
[2021-02-27] MEDS ORDERED: cloNIDine HCL 0.1 MG TABLET PO PRN (21:09)
[2021-02-27] MEDS ORDERED: METHADONE HCL 10 MG TABLET (FOR DETOX USE ONLY) PO ONE (21:09)
[2021-02-27] MEDS ORDERED: traZODone HCL 50 MG TABLET (FP) PO ONE (22:00)
[2021-02-27] MEDS ORDERED: THIAMINE HCL 100 MG TABLET (FP) PO SCH (22:00)
[2021-02-27] MEDS: hydrOXYzine PAMOATE 25 MG CAPSULE (FP) PO PRN (22:57)
[2021-02-27] MEDS: NICOTINE POLACRILEX 2 MG GUM BUC PRN (23:00)
[2021-02-28] MEDS ORDERED: PRENATAL VITAMINS W/ FOLIC ACID TABLET (FP) PO SCH (10:00)
[2021-02-28] MEDS ORDERED: METHADONE HCL 5 MG TABLET PO ONE (10:00)
[2021-02-28] MEDS: hydrOXYzine PAMOATE 25 MG CAPSULE (FP) PO PRN (10:22)
[2021-02-28] MEDS: NICOTINE POLACRILEX 2 MG GUM BUC PRN (10:25)
[2021-02-28 17:29] VITALS: BP 143/78; PULSE 57; TEMP 98
== END 2021-02-28 19:00 | disposition other institution (70) | DRG 773 ==
LOC: YASAS 19:02 → Y6N 21:14
PROVIDERS: ADMIT Allergy & Immunology; ATTEND Allergy & Immunology
PROC: HZ2ZZZZ Detoxification Services for Substance Abuse Treatment (ICD-10-PCS; principal; 2021-02-27)
DX: F11.23 Opioid dependence with withdrawal (principal); F14.20 Cocaine dependence, uncomplicated; F16.10 Hallucinogen abuse, uncomplicated; F19.24 Other psychoactive substance dependence with psychoactive substance-induced mood disorder; F32.9 Major depressive disorder, single episode, unspecified; F41.9 Anxiety disorder, unspecified; R01.1 Cardiac murmur, unspecified; Z87.891 Personal history of nicotine dependence; Z87.448 Personal history of other diseases of urinary system
CPT/HCPCS: C9803; U0003; U0005

== ENCOUNTER 2021-02-28 18:28 | Inpatient (IN) | payer OTHER ==
[2021-02-28] MEDS ORDERED: MENTHOL/PHENOL 1 EACH UD MM PRN (19:49)
[2021-02-28] MEDS ORDERED: ACETAMINOPHEN 325 MG TABLET (FP) PO PRN (19:49)
[2021-02-28] MEDS ORDERED: IBUPROFEN 400 MG TABLET (FP) PO PRN (19:49)
[2021-02-28] MEDS ORDERED: guaiFENesin 200 MG/10 ML 10 ML UNIT-DOSE CUPS PO PRN (19:49)
[2021-02-28] MEDS ORDERED: MAGNESIUM HYDROX 2400MG/30ML ORAL SUSPENSION 30 ML CUP PO PRN (19:49)
[2021-02-28] MEDS ORDERED: NICOTINE POLACRILEX 2 MG GUM BUC PRN (19:49)
[2021-02-28] MEDS ORDERED: LOPERAMIDE HCL 2 MG CAPSULE PO PRN (19:49)
[2021-02-28] MEDS ORDERED: MAG HYDROX/AL HYDROX/SIMETH 30 ML UNIT-DOSE CUP PO PRN (19:49)
[2021-02-28] MEDS ORDERED: MAGNESIUM CITRATE 300 ML BOTTLE PO PRN (19:49)
[2021-02-28] MEDS ORDERED: P-EPHED 60MG/TRIPROLIDI 2.5MG TABLET PO PRN (19:49)
[2021-02-28] MEDS ORDERED: THIAMINE HCL 100 MG TABLET (FP) PO SCH (22:00)
[2021-02-28] MEDS ORDERED: MELATONIN 5 MG TABLETS PO SCH (22:00)
[2021-03-01 07:00] VITALS: BP 108/56; PULSE 64; TEMP 97.9
[2021-03-01] MEDS ORDERED: PRENATAL VITAMINS W/ FOLIC ACID TABLET (FP) PO SCH (10:00)
== END 2021-03-01 18:35 | disposition left against medical advice (07) | DRG 770 ==
LOC: YASAS 18:28 → Y3W 18:29
PROVIDERS: ADMIT Allergy & Immunology; ATTEND Allergy & Immunology
PROC: HZ42ZZZ Group Counseling for Substance Abuse Treatment, Cognitive-Behavioral (ICD-10-PCS; principal; 2021-02-28)
DX: F11.20 Opioid dependence, uncomplicated (principal); F14.20 Cocaine dependence, uncomplicated; F41.8 Other specified anxiety disorders; F32.9 Major depressive disorder, single episode, unspecified; E78.5 Hyperlipidemia, unspecified; R01.1 Cardiac murmur, unspecified; Z87.440 Personal history of urinary (tract) infections; Z87.448 Personal history of other diseases of urinary system

== ENCOUNTER 2021-03-13 22:12 | Inpatient (IN) | payer OTHER ==
[2021-03-14 00:32] VITALS: BMI 23.3
[2021-03-14] MEDS ORDERED: METHADONE HCL 10 MG TABLET (FOR DETOX USE ONLY) PO ONE (03:28)
[2021-03-14] MEDS ORDERED: BISMUTH SUBSALICYLATE 524 MG/30 ML UD PO PRN (03:28)
[2021-03-14] MEDS ORDERED: MENTHOL/PHENOL 1 EACH UD MM PRN (03:28)
[2021-03-14] MEDS ORDERED: ACETAMINOPHEN 325 MG TABLET (FP) PO PRN ×2 (03:28)
[2021-03-14] MEDS ORDERED: cloNIDine HCL 0.1 MG TABLET PO PRN (03:28)
[2021-03-14] MEDS ORDERED: ONDANSETRON *ODT* 4 MG TABLET SL PRN (03:28)
[2021-03-14] MEDS ORDERED: MAGNESIUM CITRATE 300 ML BOTTLE PO PRN (03:28)
[2021-03-14] MEDS ORDERED: MAG HYDROX/AL HYDROX/SIMETH 30 ML UNIT-DOSE CUP PO PRN (03:28)
[2021-03-14] MEDS ORDERED: IBUPROFEN 400 MG TABLET (FP) PO PRN (03:28)
[2021-03-14] MEDS ORDERED: MAGNESIUM HYDROX 2400MG/30ML ORAL SUSPENSION 30 ML CUP PO PRN (03:28)
[2021-03-14] MEDS ORDERED: METHADONE HCL 10 MG TABLET (FOR DETOX USE ONLY) ONE (03:45)
[2021-03-14 12:09] LABS: CALCIUM 8.5 mg/dL (8.5-10.1)
[2021-03-14 12:10] LABS: ALBUMIN 3.9 g/dl (3.4-5.0); BLOOD UREA NITROGEN 18.5 mg/dL (7-18); HEMATOCRIT 37.7 % (35.4-49); HEMOGLOBIN 12.9 GM/dL (11.7-16.9); MCH 31.1 pg (25.7-33.7); MCHC 34.2 g/dl (32.0-35.9); MEAN PLT VOLUME 9.4 fl (7.5-11.1); PLATELET COUNT 209 K/MM3 (134-434); RBC 4.14 M/mm3 (4.00-5.60); RDW 12.9 % (11.9-15.9); WHITE BLOOD COUNT 5.3 K/mm3 (4.0-10.0)
[2021-03-14 12:13] LABS: CREATININE 0.9 mg/dL (0.55-1.3)
[2021-03-14 12:15] LABS: BILIRUBIN,TOTAL 0.7 mg/dL (0.2-1); TOT PROT 7.1 g/dl (6.4-8.2)
[2021-03-14] MEDS: NICOTINE POLACRILEX 2 MG GUM BUC PRN ×2 (12:16→22:25)
[2021-03-14] MEDS: NICOTINE 14 MG/24 HOURS TOPICAL PATCH TD SCH (12:16)
[2021-03-14] MEDS: PRENATAL VITAMINS W/ FOLIC ACID TABLET (FP) PO SCH (12:16)
[2021-03-14] MEDS ORDERED: hydrOXYzine PAMOATE 25 MG CAPSULE (FP) PO PRN (15:00)
[2021-03-14] MEDS ORDERED: SUVOREXANT 10 MG TABLET PO PRN (22:00)
[2021-03-14] MEDS ORDERED: MELATONIN 5 MG TABLETS PO SCH (22:00)
[2021-03-14] MEDS: THIAMINE HCL 100 MG TABLET (FP) PO SCH (22:23)
[2021-03-15] MEDS ORDERED: METHADONE HCL 5 MG TABLET (FOR DETOX USE ONLY) ONE (09:39)
[2021-03-15] MEDS ORDERED: METHADONE HCL 10 MG TABLET (FOR DETOX USE ONLY) ONE (09:39)
[2021-03-15] MEDS ORDERED: METHADONE (DETOX) 20 MG, METHADONE (DETOX) 5 MG PO ONE (10:00)
[2021-03-15] MEDS: METHOCARBAMOL 500 MG TABLET PO PRN (10:30)
[2021-03-15] MEDS: PRENATAL VITAMINS W/ FOLIC ACID TABLET (FP) PO SCH (10:30)
[2021-03-15] MEDS: NICOTINE 14 MG/24 HOURS TOPICAL PATCH TD SCH (10:30)
[2021-03-15] MEDS: NICOTINE POLACRILEX 2 MG GUM BUC PRN ×3 (10:31→18:22)
[2021-03-15] MEDS: diazePAM 5 MG TABLET PO PRN ×2 (13:30→18:21)
[2021-03-15] MEDS: THIAMINE HCL 100 MG TABLET (FP) PO SCH (22:52)
[2021-03-16] MEDS ORDERED: METHADONE HCL 10 MG TABLET (FOR DETOX USE ONLY) PO ONE (10:00)
[2021-03-16] MEDS: PRENATAL VITAMINS W/ FOLIC ACID TABLET (FP) PO SCH (10:49)
[2021-03-16] MEDS: diazePAM 5 MG TABLET PO PRN ×2 (10:50→16:00)
[2021-03-16] MEDS: METHOCARBAMOL 500 MG TABLET PO PRN (10:50)
[2021-03-16] MEDS: NICOTINE POLACRILEX 2 MG GUM BUC PRN ×4 (10:52→21:14)
[2021-03-16] MEDS: NICOTINE 14 MG/24 HOURS TOPICAL PATCH TD SCH (10:53)
[2021-03-16] MEDS: BACITRACIN 0.9 GM PACKET TP SCH (16:00)
[2021-03-16] MEDS: THIAMINE HCL 100 MG TABLET (FP) PO SCH (22:51)
[2021-03-17 06:36] LABS: SARS-CoV-2 NAA Not Detected (Not Detected)
[2021-03-17] MEDS ORDERED: METHADONE HCL 5 MG TABLET (FOR DETOX USE ONLY) ONE (09:22)
[2021-03-17] MEDS ORDERED: METHADONE HCL 10 MG TABLET (FOR DETOX USE ONLY) ONE (09:22)
[2021-03-17] MEDS ORDERED: METHADONE (DETOX) 10 MG, METHADONE (DETOX) 5 MG PO ONE (10:00)
[2021-03-17] MEDS: NICOTINE 14 MG/24 HOURS TOPICAL PATCH TD SCH (10:31)
[2021-03-17] MEDS: BACITRACIN 0.9 GM PACKET TP SCH (10:31)
[2021-03-17] MEDS: PRENATAL VITAMINS W/ FOLIC ACID TABLET (FP) PO SCH (10:33)
[2021-03-17] MEDS: diazePAM 5 MG TABLET PO PRN (10:35)
[2021-03-17] MEDS: NICOTINE POLACRILEX 2 MG GUM BUC PRN (10:36)
[2021-03-17 14:11] VITALS: BP 144/94; PULSE 81; TEMP 97.3
[2021-03-18] MEDS ORDERED: METHADONE HCL 10 MG TABLET (FOR DETOX USE ONLY) PO ONE (10:00)
[2021-03-19] MEDS ORDERED: METHADONE HCL 5 MG TABLET (FOR DETOX USE ONLY) PO ONE (06:00)
== END 2021-03-17 14:23 | disposition left against medical advice (07) | DRG 770 ==
LOC: YASAS 22:12 → Y3N 03-14 10:55
PROVIDERS: ADMIT Allergy & Immunology; ATTEND Allergy & Immunology
PROC: HZ2ZZZZ Detoxification Services for Substance Abuse Treatment (ICD-10-PCS; principal; 2021-03-14)
DX: F11.23 Opioid dependence with withdrawal (principal); F14.20 Cocaine dependence, uncomplicated; F17.210 Nicotine dependence, cigarettes, uncomplicated; F19.282 Other psychoactive substance dependence with psychoactive substance-induced sleep disorder; F19.24 Other psychoactive substance dependence with psychoactive substance-induced mood disorder; F32.9 Major depressive disorder, single episode, unspecified; E78.5 Hyperlipidemia, unspecified; N12 Tubulo-interstitial nephritis, not specified as acute or chronic; R01.1 Cardiac murmur, unspecified; Z87.440 Personal history of urinary (tract) infections
CPT/HCPCS: 36415; 80053; 85027; 86780; C9803; J0735; U0003; U0005

== ENCOUNTER 2021-03-19 20:25 | Inpatient (IN) | payer OTHER ==
[2021-03-19 21:27] VITALS: BMI 22.2
[2021-03-20] MEDS ORDERED: BISMUTH SUBSALICYLATE 524 MG/30 ML PO PRN (01:17)
[2021-03-20] MEDS ORDERED: MAG HYDROX/AL HYDROX/SIMETH 30 ML UNIT-DOSE CUP PO PRN (01:17)
[2021-03-20] MEDS ORDERED: METHOCARBAMOL 500 MG TABLET PO PRN (01:17)
[2021-03-20] MEDS ORDERED: MENTHOL/PHENOL 1 EACH UD MM PRN (01:17)
[2021-03-20] MEDS ORDERED: MAGNESIUM HYDROX 2400MG/30ML ORAL SUSPENSION 30 ML CUP PO PRN (01:17)
[2021-03-20] MEDS ORDERED: hydrOXYzine PAMOATE 25 MG CAPSULE (FP) PO PRN (01:17)
[2021-03-20] MEDS ORDERED: MAGNESIUM CITRATE 300 ML BOTTLE PO PRN (01:17)
[2021-03-20] MEDS ORDERED: IBUPROFEN 400 MG TABLET (FP) PO PRN (01:17)
[2021-03-20] MEDS ORDERED: ACETAMINOPHEN 325 MG TABLET (FP) PO PRN ×2 (01:17)
[2021-03-20] MEDS ORDERED: ONDANSETRON *ODT* 4 MG TABLET SL PRN (01:17)
[2021-03-20] MEDS ORDERED: cloNIDine HCL 0.1 MG TABLET PO PRN (09:42)
[2021-03-20] MEDS ORDERED: METHADONE HCL 10 MG TABLET (FOR DETOX USE ONLY) PO ONE (09:42)
[2021-03-20] MEDS ORDERED: METHADONE (DETOX) 20 MG, METHADONE (DETOX) 5 MG PO ONE (10:00)
[2021-03-20] MEDS ORDERED: METHADONE HCL 10 MG TABLET (FOR DETOX USE ONLY) ONE (10:00)
[2021-03-20] MEDS ORDERED: METHADONE HCL 5 MG TABLET (FOR DETOX USE ONLY) ONE (10:01)
[2021-03-20] MEDS: NICOTINE 14 MG/24 HOURS TOPICAL PATCH TD SCH (10:09)
[2021-03-20] MEDS: PRENATAL VITAMINS W/ FOLIC ACID TABLET (FP) PO SCH (10:09)
[2021-03-20 12:48] LABS: HEMATOCRIT 37.2 % (35.4-49); HEMOGLOBIN 12.7 GM/dL (11.7-16.9); MCH 30.8 pg (25.7-33.7); MCHC 34.1 g/dl (32.0-35.9); MEAN CELL VOLUME 90.4 fl (80-96); MEAN PLT VOLUME 9.8 fl (7.5-11.1); PLATELET COUNT 185 K/MM3 (134-434); RBC 4.12 M/mm3 (4.00-5.60); RDW 12.9 % (11.9-15.9)
[2021-03-20 13:22] LABS: ALBUMIN 3.8 g/dl (3.4-5.0); BLOOD UREA NITROGEN 12.1 mg/dL (7-18); CALCIUM 8.7 mg/dL (8.5-10.1)
[2021-03-20 13:25] LABS: CREATININE 0.7 mg/dL (0.55-1.3)
[2021-03-20 13:26] LABS: BILIRUBIN,TOTAL 0.5 mg/dL (0.2-1); TOT PROT 6.6 g/dl (6.4-8.2)
[2021-03-20] MEDS: MELATONIN 5 MG TABLETS PO SCH (22:31)
[2021-03-20] MEDS: THIAMINE HCL 100 MG TABLET (FP) PO SCH (22:31)
[2021-03-21] MEDS ORDERED: METHADONE HCL 10 MG TABLET (FOR DETOX USE ONLY) PO ONE (10:00)
[2021-03-21] MEDS: PRENATAL VITAMINS W/ FOLIC ACID TABLET (FP) PO SCH (10:40)
[2021-03-21] MEDS: NICOTINE 14 MG/24 HOURS TOPICAL PATCH TD SCH (10:41)
[2021-03-21 21:35] VITALS: TEMP 96.9
[2021-03-21] MEDS: THIAMINE HCL 100 MG TABLET (FP) PO SCH (22:28)
[2021-03-21] MEDS: MELATONIN 5 MG TABLETS PO SCH (22:28)
[2021-03-22] MEDS ORDERED: NICOTINE POLACRILEX 4 MG GUM BUC PRN (07:57)
[2021-03-22] MEDS ORDERED: METHADONE HCL 10 MG TABLET (FOR DETOX USE ONLY) PO ONE (10:00)
[2021-03-22] MEDS ORDERED: METHADONE (DETOX) 10 MG, METHADONE (DETOX) 5 MG PO ONE (10:00)
[2021-03-22] MEDS ORDERED: METHADONE HCL 5 MG TABLET (FOR DETOX USE ONLY) PO ONE (10:44)
[2021-03-22] MEDS: NICOTINE 14 MG/24 HOURS TOPICAL PATCH TD SCH (10:45)
[2021-03-22] MEDS: PRENATAL VITAMINS W/ FOLIC ACID TABLET (FP) PO SCH (10:45)
[2021-03-22 13:07] VITALS: BP 113/79; PULSE 103
[2021-03-23] MEDS ORDERED: METHADONE (DETOX) 10 MG, METHADONE (DETOX) 5 MG PO ONE (10:00)
[2021-03-24] MEDS ORDERED: METHADONE HCL 10 MG TABLET (FOR DETOX USE ONLY) PO ONE (10:00)
[2021-03-25] MEDS ORDERED: METHADONE HCL 5 MG TABLET (FOR DETOX USE ONLY) PO ONE (06:00)
== END 2021-03-22 13:38 | disposition left against medical advice (07) | DRG 770 ==
LOC: YASAS 20:25 → UNDOADMIN 03-20 02:16 → Y3N 03-20 02:16
PROVIDERS: ADMIT Allergy & Immunology; ATTEND Allergy & Immunology
PROC: HZ2ZZZZ Detoxification Services for Substance Abuse Treatment (ICD-10-PCS; principal; 2021-03-20)
DX: F11.23 Opioid dependence with withdrawal (principal); F14.20 Cocaine dependence, uncomplicated; F17.210 Nicotine dependence, cigarettes, uncomplicated; F19.282 Other psychoactive substance dependence with psychoactive substance-induced sleep disorder; F19.24 Other psychoactive substance dependence with psychoactive substance-induced mood disorder; F32.9 Major depressive disorder, single episode, unspecified; F41.9 Anxiety disorder, unspecified; E78.5 Hyperlipidemia, unspecified; N12 Tubulo-interstitial nephritis, not specified as acute or chronic; R01.1 Cardiac murmur, unspecified
CPT/HCPCS: 36415; 80053; 85027; 86780; C9803; J0735; U0003; U0005

== ENCOUNTER 2021-03-26 13:44 | Inpatient (IN) | payer OTHER ==
[2021-03-26 14:42] VITALS: BMI 23.7
[2021-03-26] MEDS ORDERED: MENTHOL/PHENOL 1 EACH UD MM PRN (17:25)
[2021-03-26] MEDS ORDERED: cloNIDine HCL 0.1 MG TABLET PO PRN (17:25)
[2021-03-26] MEDS ORDERED: MAGNESIUM HYDROX 2400MG/30ML ORAL SUSPENSION 30 ML CUP PO PRN (17:25)
[2021-03-26] MEDS ORDERED: IBUPROFEN 400 MG TABLET (FP) PO PRN (17:25)
[2021-03-26] MEDS ORDERED: MAG HYDROX/AL HYDROX/SIMETH 30 ML UNIT-DOSE CUP PO PRN (17:25)
[2021-03-26] MEDS ORDERED: ONDANSETRON *ODT* 4 MG TABLET SL PRN (17:25)
[2021-03-26] MEDS ORDERED: MAGNESIUM CITRATE 300 ML BOTTLE PO PRN (17:25)
[2021-03-26] MEDS ORDERED: BISMUTH SUBSALICYLATE 524 MG/30 ML PO PRN (17:25)
[2021-03-26] MEDS ORDERED: ACETAMINOPHEN 325 MG TABLET (FP) PO PRN ×2 (17:25)
[2021-03-26] MEDS ORDERED: METHADONE HCL 10 MG TABLET (FOR DETOX USE ONLY) PO ONE (17:25)
[2021-03-26] MEDS: MELATONIN 5 MG TABLETS PO SCH (22:35)
[2021-03-26] MEDS: THIAMINE HCL 100 MG TABLET (FP) PO SCH (22:36)
[2021-03-27] MEDS ORDERED: METHADONE HCL 10 MG TABLET (FOR DETOX USE ONLY) ONE (09:52)
[2021-03-27] MEDS ORDERED: METHADONE HCL 5 MG TABLET (FOR DETOX USE ONLY) ONE (09:52)
[2021-03-27] MEDS ORDERED: METHADONE (DETOX) 20 MG, METHADONE (DETOX) 5 MG PO ONE (10:00)
[2021-03-27] MEDS: NICOTINE 21 MG/24 HOURS TOPICAL PATCH TD SCH (10:12)
[2021-03-27] MEDS: PRENATAL VITAMINS W/ FOLIC ACID TABLET (FP) PO SCH (10:13)
[2021-03-27] MEDS: METHOCARBAMOL 500 MG TABLET PO PRN (10:13)
[2021-03-27] MEDS: hydrOXYzine PAMOATE 25 MG CAPSULE (FP) PO PRN (10:13)
[2021-03-27] MEDS: THIAMINE HCL 100 MG TABLET (FP) PO SCH (22:35)
[2021-03-27] MEDS: MELATONIN 5 MG TABLETS PO SCH (22:35)
[2021-03-28] MEDS ORDERED: METHADONE HCL 10 MG TABLET (FOR DETOX USE ONLY) PO ONE (10:00)
[2021-03-28] MEDS: PRENATAL VITAMINS W/ FOLIC ACID TABLET (FP) PO SCH (10:21)
[2021-03-28] MEDS: NICOTINE 21 MG/24 HOURS TOPICAL PATCH TD SCH (10:21)
[2021-03-28] MEDS: NICOTINE POLACRILEX 2 MG GUM BUC PRN ×2 (10:22→16:48)
[2021-03-28] MEDS: diazePAM 5 MG TABLET PO PRN ×2 (10:22→16:45)
[2021-03-28] MEDS: hydrOXYzine PAMOATE 25 MG CAPSULE (FP) PO PRN (16:46)
[2021-03-28] MEDS: THIAMINE HCL 100 MG TABLET (FP) PO SCH (23:16)
[2021-03-28] MEDS: MELATONIN 5 MG TABLETS PO SCH (23:16)
[2021-03-29] MEDS ORDERED: METHADONE HCL 5 MG TABLET (FOR DETOX USE ONLY) ONE (09:47)
[2021-03-29] MEDS ORDERED: METHADONE HCL 10 MG TABLET (FOR DETOX USE ONLY) ONE (09:47)
[2021-03-29] MEDS: PRENATAL VITAMINS W/ FOLIC ACID TABLET (FP) PO SCH (09:55)
[2021-03-29] MEDS: METHOCARBAMOL 500 MG TABLET PO PRN ×2 (09:56→17:20)
[2021-03-29] MEDS: diazePAM 5 MG TABLET PO PRN ×2 (09:56→17:20)
[2021-03-29] MEDS: NICOTINE 21 MG/24 HOURS TOPICAL PATCH TD SCH (09:57)
[2021-03-29] MEDS: NICOTINE POLACRILEX 2 MG GUM BUC PRN ×2 (09:58→19:02)
[2021-03-29] MEDS ORDERED: METHADONE (DETOX) 10 MG, METHADONE (DETOX) 5 MG PO ONE (10:00)
[2021-03-29] MEDS: MELATONIN 5 MG TABLETS PO SCH (23:11)
[2021-03-29] MEDS: THIAMINE HCL 100 MG TABLET (FP) PO SCH (23:11)
[2021-03-30] MEDS: diazePAM 5 MG TABLET PO PRN ×2 (08:53→19:40)
[2021-03-30] MEDS ORDERED: METHADONE HCL 10 MG TABLET (FOR DETOX USE ONLY) PO ONE (10:00)
[2021-03-30] MEDS: PRENATAL VITAMINS W/ FOLIC ACID TABLET (FP) PO SCH (10:30)
[2021-03-30] MEDS: NICOTINE 21 MG/24 HOURS TOPICAL PATCH TD SCH (10:30)
[2021-03-30] MEDS: NICOTINE POLACRILEX 2 MG GUM BUC PRN ×3 (14:34→22:24)
[2021-03-30 21:22] VITALS: BP 120/70
[2021-03-30] MEDS: MELATONIN 5 MG TABLETS PO SCH (22:22)
[2021-03-30] MEDS: THIAMINE HCL 100 MG TABLET (FP) PO SCH (22:22)
[2021-03-30] MEDS: hydrOXYzine PAMOATE 25 MG CAPSULE (FP) PO PRN (22:24)
[2021-03-30] MEDS: METHOCARBAMOL 500 MG TABLET PO PRN (22:24)
[2021-03-31] MEDS ORDERED: METHADONE HCL 5 MG TABLET (FOR DETOX USE ONLY) PO ONE (06:00)
[2021-03-31 06:07] VITALS: PULSE 69; TEMP 96.6
== END 2021-03-31 06:41 | disposition home or self-care (01) | DRG 773 ==
LOC: YASAS 13:44 → Y3N 17:47
PROVIDERS: ADMIT Allergy & Immunology; ATTEND Allergy & Immunology
PROC: HZ2ZZZZ Detoxification Services for Substance Abuse Treatment (ICD-10-PCS; principal; 2021-03-26)
DX: F11.23 Opioid dependence with withdrawal (principal); F14.20 Cocaine dependence, uncomplicated; F13.20 Sedative, hypnotic or anxiolytic dependence, uncomplicated; F15.20 Other stimulant dependence, uncomplicated; F17.210 Nicotine dependence, cigarettes, uncomplicated; F19.24 Other psychoactive substance dependence with psychoactive substance-induced mood disorder; F41.8 Other specified anxiety disorders; E78.5 Hyperlipidemia, unspecified; R01.1 Cardiac murmur, unspecified; Z91.14 Patient's other noncompliance with medication regimen
CPT/HCPCS: C9803; U0003; U0005

== ENCOUNTER 2021-05-03 08:48 | Inpatient (IN) | payer OTHER ==
[2021-05-03 10:48] VITALS: BMI 21.9
[2021-05-03] MEDS ORDERED: MAGNESIUM HYDROX 2400MG/30ML ORAL SUSPENSION 30 ML CUP PO PRN (12:04)
[2021-05-03] MEDS ORDERED: METHOCARBAMOL 500 MG TABLET PO PRN (12:04)
[2021-05-03] MEDS ORDERED: NICOTINE POLACRILEX 2 MG GUM BUC PRN (12:04)
[2021-05-03] MEDS ORDERED: MAG HYDROX/AL HYDROX/SIMETH 30 ML UNIT-DOSE CUP PO PRN (12:04)
[2021-05-03] MEDS ORDERED: MAGNESIUM CITRATE 300 ML BOTTLE PO PRN (12:04)
[2021-05-03] MEDS ORDERED: cloNIDine HCL 0.1 MG TABLET PO PRN (12:04)
[2021-05-03] MEDS ORDERED: IBUPROFEN 400 MG TABLET (FP) PO PRN (12:04)
[2021-05-03] MEDS ORDERED: ONDANSETRON *ODT* 4 MG TABLET SL PRN (12:04)
[2021-05-03] MEDS ORDERED: ACETAMINOPHEN 325 MG TABLET (FP) PO PRN ×2 (12:04)
[2021-05-03] MEDS ORDERED: BISMUTH SUBSALICYLATE 524 MG/30 ML PO PRN (12:04)
[2021-05-03] MEDS ORDERED: MENTHOL/PHENOL 1 EACH UD MM PRN (12:04)
[2021-05-03] MEDS ORDERED: METHADONE HCL 10 MG TABLET (FOR DETOX USE ONLY) PO ONE (12:30)
[2021-05-03] MEDS: hydrOXYzine PAMOATE 25 MG CAPSULE (FP) PO SCH ×3 (13:54→23:09)
[2021-05-03] MEDS: PRENATAL VITAMINS W/ FOLIC ACID TABLET (FP) PO SCH (13:54)
[2021-05-03] MEDS: NICOTINE 21 MG/24 HOURS TOPICAL PATCH TD SCH (13:54)
[2021-05-03] MEDS ORDERED: MELATONIN 5 MG TABLETS PO PRN (15:22)
[2021-05-03] MEDS ORDERED: MELATONIN 5 MG TABLETS PO SCH (22:00)
[2021-05-03] MEDS: THIAMINE HCL 100 MG TABLET (FP) PO SCH (23:09)
[2021-05-04] MEDS: hydrOXYzine PAMOATE 25 MG CAPSULE (FP) PO SCH ×5 (07:14→23:18)
[2021-05-04] MEDS ORDERED: METHADONE HCL 10 MG TABLET (FOR DETOX USE ONLY) ONE (09:04)
[2021-05-04] MEDS ORDERED: METHADONE HCL 5 MG TABLET (FOR DETOX USE ONLY) ONE (09:05)
[2021-05-04] MEDS ORDERED: METHADONE (DETOX) 20 MG, METHADONE (DETOX) 5 MG PO ONE (10:00)
[2021-05-04 10:04] LABS: HEMOGLOBIN 12.3 GM/dL (11.7-16.9); MCH 30.3 pg (25.7-33.7); MCHC 33.3 g/dl (32.0-35.9); MEAN CELL VOLUME 91.1 fl (80-96); MEAN PLT VOLUME 9.8 fl (7.5-11.1); PLATELET COUNT 172 10^3/uL (134-434); RBC 4.07 M/mm3 (4.00-5.60); RDW 13.2 % (11.9-15.9); WHITE BLOOD COUNT 5.2 K/mm3 (4.0-10.0)
[2021-05-04 10:07] LABS: BLOOD UREA NITROGEN 21.2 mg/dL (7-18); CALCIUM 8.3 mg/dL (8.5-10.1)
[2021-05-04 10:08] LABS: ALBUMIN 3.7 g/dl (3.4-5.0)
[2021-05-04 10:11] LABS: CREATININE 0.8 mg/dL (0.55-1.3)
[2021-05-04 10:12] LABS: BILIRUBIN,TOTAL 1.5 mg/dL (0.2-1); TOT PROT 6.8 g/dl (6.4-8.2)
[2021-05-04] MEDS: NICOTINE 21 MG/24 HOURS TOPICAL PATCH TD SCH (10:35)
[2021-05-04] MEDS: PRENATAL VITAMINS W/ FOLIC ACID TABLET (FP) PO SCH (10:35)
[2021-05-04] MEDS: THIAMINE HCL 100 MG TABLET (FP) PO SCH (23:18)
[2021-05-05] MEDS: hydrOXYzine PAMOATE 25 MG CAPSULE (FP) PO SCH ×2 (08:04→10:37)
[2021-05-05 09:14] VITALS: BP 111/65; PULSE 61; TEMP 98.2
[2021-05-05] MEDS ORDERED: METHADONE HCL 10 MG TABLET (FOR DETOX USE ONLY) PO ONE (10:00)
[2021-05-05] MEDS: NICOTINE 21 MG/24 HOURS TOPICAL PATCH TD SCH (10:37)
[2021-05-05] MEDS: PRENATAL VITAMINS W/ FOLIC ACID TABLET (FP) PO SCH (10:37)
[2021-05-06] MEDS ORDERED: METHADONE (DETOX) 10 MG, METHADONE (DETOX) 5 MG PO ONE (10:00)
[2021-05-07] MEDS ORDERED: METHADONE HCL 10 MG TABLET (FOR DETOX USE ONLY) PO ONE (10:00)
[2021-05-08] MEDS ORDERED: METHADONE HCL 5 MG TABLET (FOR DETOX USE ONLY) PO ONE (06:00)
== END 2021-05-05 12:42 | disposition left against medical advice (07) | DRG 770 ==
LOC: YASAS 08:48 → Y3N 12:27
PROVIDERS: ADMIT Allergy & Immunology; ATTEND Allergy & Immunology
PROC: HZ2ZZZZ Detoxification Services for Substance Abuse Treatment (ICD-10-PCS; principal; 2021-05-03)
DX: F11.23 Opioid dependence with withdrawal (principal); F14.20 Cocaine dependence, uncomplicated; F12.20 Cannabis dependence, uncomplicated; F15.10 Other stimulant abuse, uncomplicated; F17.213 Nicotine dependence, cigarettes, with withdrawal; F19.24 Other psychoactive substance dependence with psychoactive substance-induced mood disorder; F19.282 Other psychoactive substance dependence with psychoactive substance-induced sleep disorder; F41.9 Anxiety disorder, unspecified; R01.1 Cardiac murmur, unspecified; Z56.0 Unemployment, unspecified
CPT/HCPCS: 36415; 80053; 85027; 86780; C9803; U0003; U0005

== ENCOUNTER 2021-05-07 00:23 | Inpatient (IN) | payer OTHER ==
[2021-05-07 00:38] VITALS: BMI 21.7
[2021-05-07] MEDS ORDERED: BISMUTH SUBSALICYLATE 524 MG/30 ML PO PRN (01:10)
[2021-05-07] MEDS ORDERED: MAGNESIUM CITRATE 300 ML BOTTLE PO PRN (01:10)
[2021-05-07] MEDS ORDERED: IBUPROFEN 400 MG TABLET (FP) PO PRN (01:10)
[2021-05-07] MEDS ORDERED: MAGNESIUM HYDROX 2400MG/30ML ORAL SUSPENSION 30 ML CUP PO PRN (01:10)
[2021-05-07] MEDS ORDERED: hydrOXYzine PAMOATE 25 MG CAPSULE (FP) PO PRN (01:10)
[2021-05-07] MEDS ORDERED: METHOCARBAMOL 500 MG TABLET PO PRN (01:10)
[2021-05-07] MEDS ORDERED: ONDANSETRON *ODT* 4 MG TABLET SL PRN (01:10)
[2021-05-07] MEDS ORDERED: MENTHOL/PHENOL 1 EACH UD MM PRN (01:10)
[2021-05-07] MEDS ORDERED: ACETAMINOPHEN 325 MG TABLET (FP) PO PRN ×2 (01:10)
[2021-05-07] MEDS ORDERED: MAG HYDROX/AL HYDROX/SIMETH 30 ML UNIT-DOSE CUP PO PRN (01:10)
[2021-05-07] MEDS ORDERED: NICOTINE POLACRILEX 2 MG GUM BUC PRN (01:10)
[2021-05-07] MEDS: PRENATAL VITAMINS W/ FOLIC ACID TABLET (FP) PO SCH (10:57)
[2021-05-07] MEDS: NICOTINE 14 MG/24 HOURS TOPICAL PATCH TD SCH (11:03)
[2021-05-07] MEDS ORDERED: METHADONE HCL 10 MG TABLET (FOR DETOX USE ONLY) PO ONE (11:11)
[2021-05-07] MEDS: diazePAM 5 MG TABLET PO PRN ×2 (12:42→19:20)
[2021-05-07] MEDS: MELATONIN 5 MG TABLETS PO SCH (22:36)
[2021-05-07] MEDS: THIAMINE HCL 100 MG TABLET (FP) PO SCH (22:36)
[2021-05-08] MEDS ORDERED: METHADONE HCL 10 MG TABLET (FOR DETOX USE ONLY) ONE (09:20)
[2021-05-08] MEDS ORDERED: METHADONE HCL 5 MG TABLET (FOR DETOX USE ONLY) ONE (09:21)
[2021-05-08] MEDS ORDERED: METHADONE (DETOX) 20 MG, METHADONE (DETOX) 5 MG PO ONE (10:00)
[2021-05-08] MEDS: PRENATAL VITAMINS W/ FOLIC ACID TABLET (FP) PO SCH (10:24)
[2021-05-08] MEDS: NICOTINE 14 MG/24 HOURS TOPICAL PATCH TD SCH (10:25)
[2021-05-08] MEDS: diazePAM 5 MG TABLET PO PRN (10:27)
[2021-05-08 11:25] LABS: HEMATOCRIT 41.5 % (35.4-49); HEMOGLOBIN 13.5 GM/dL (11.7-16.9); MCH 29.9 pg (25.7-33.7); MCHC 32.6 g/dl (32.0-35.9); MEAN CELL VOLUME 91.8 fl (80-96); MEAN PLT VOLUME 9.9 fl (7.5-11.1); PLATELET COUNT 225 10^3/uL (134-434); RBC 4.51 M/mm3 (4.00-5.60); RDW 13.1 % (11.9-15.9); WHITE BLOOD COUNT 5.5 K/mm3 (4.0-10.0)
[2021-05-08 11:54] LABS: CALCIUM 8.9 mg/dL (8.5-10.1)
[2021-05-08 11:55] LABS: ALBUMIN 4.2 g/dl (3.4-5.0); BLOOD UREA NITROGEN 17.4 mg/dL (7-18)
[2021-05-08 11:58] LABS: CREATININE 0.9 mg/dL (0.55-1.3)
[2021-05-08 11:59] LABS: BILIRUBIN,TOTAL 1.1 mg/dL (0.2-1)
[2021-05-08 12:00] LABS: TOT PROT 7.8 g/dl (6.4-8.2)
[2021-05-08 22:57] VITALS: BP 89/52; PULSE 47; TEMP 98.2
[2021-05-08] MEDS: MELATONIN 5 MG TABLETS PO SCH (23:50)
[2021-05-08] MEDS: THIAMINE HCL 100 MG TABLET (FP) PO SCH (23:50)
[2021-05-09] MEDS ORDERED: METHADONE HCL 10 MG TABLET (FOR DETOX USE ONLY) PO ONE (10:00)
[2021-05-10] MEDS ORDERED: METHADONE (DETOX) 10 MG, METHADONE (DETOX) 5 MG PO ONE (10:00)
[2021-05-11] MEDS ORDERED: METHADONE HCL 10 MG TABLET (FOR DETOX USE ONLY) PO ONE (10:00)
[2021-05-12] MEDS ORDERED: METHADONE HCL 5 MG TABLET (FOR DETOX USE ONLY) PO ONE (06:00)
== END 2021-05-08 23:30 | disposition left against medical advice (07) | DRG 770 ==
LOC: YASAS 00:23 → Y3N 01:19
PROVIDERS: ADMIT Allergy & Immunology; ATTEND Allergy & Immunology
PROC: HZ2ZZZZ Detoxification Services for Substance Abuse Treatment (ICD-10-PCS; principal; 2021-05-07)
DX: F11.23 Opioid dependence with withdrawal (principal); F14.20 Cocaine dependence, uncomplicated; F12.20 Cannabis dependence, uncomplicated; F15.20 Other stimulant dependence, uncomplicated; F17.210 Nicotine dependence, cigarettes, uncomplicated; F32.9 Major depressive disorder, single episode, unspecified; F19.24 Other psychoactive substance dependence with psychoactive substance-induced mood disorder; E78.5 Hyperlipidemia, unspecified; R01.1 Cardiac murmur, unspecified; N39.0 Urinary tract infection, site not specified; N10 Acute pyelonephritis; G47.00 Insomnia, unspecified; Z91.14 Patient's other noncompliance with medication regimen; Z86.59 Personal history of other mental and behavioral disorders; Z56.0 Unemployment, unspecified; Z59.0 Homelessness
CPT/HCPCS: 36415; 80053; 85027; 86780; C9803; U0003; U0005

== ENCOUNTER 2021-05-14 15:08 | Inpatient (IN) | payer OTHER ==
[2021-05-14 16:17] VITALS: BMI 21.8
[2021-05-14] MEDS ORDERED: MAGNESIUM CITRATE 300 ML BOTTLE PO PRN (20:03)
[2021-05-14] MEDS ORDERED: MAG HYDROX/AL HYDROX/SIMETH 30 ML UNIT-DOSE CUP PO PRN (20:03)
[2021-05-14] MEDS ORDERED: NICOTINE POLACRILEX 2 MG GUM BUC PRN (20:03)
[2021-05-14] MEDS ORDERED: MENTHOL/PHENOL 1 EACH UD MM PRN (20:03)
[2021-05-14] MEDS ORDERED: cloNIDine HCL 0.1 MG TABLET PO PRN (20:03)
[2021-05-14] MEDS ORDERED: ONDANSETRON *ODT* 4 MG TABLET SL PRN (20:03)
[2021-05-14] MEDS ORDERED: MAGNESIUM HYDROX 2400MG/30ML ORAL SUSPENSION 30 ML CUP PO PRN (20:03)
[2021-05-14] MEDS ORDERED: ACETAMINOPHEN 325 MG TABLET (FP) PO PRN ×2 (20:03)
[2021-05-14] MEDS ORDERED: BISMUTH SUBSALICYLATE 524 MG/30 ML PO PRN (20:03)
[2021-05-14] MEDS ORDERED: IBUPROFEN 400 MG TABLET (FP) PO PRN (20:03)
[2021-05-14] MEDS ORDERED: methaDONE HCL 10 MG TABLET (FOR DETOX USE ONLY) PO ONE (21:00)
[2021-05-14] MEDS: THIAMINE HCL 100 MG TABLET (FP) PO SCH (21:57)
[2021-05-14] MEDS: MELATONIN 5 MG TABLETS PO SCH (22:01)
[2021-05-15] MEDS ORDERED: methaDONE HCL 10 MG TABLET (FOR DETOX USE ONLY) ONE (09:25)
[2021-05-15] MEDS: PRENATAL VITAMINS W/ FOLIC ACID TABLET (FP) PO SCH (10:22)
[2021-05-15] MEDS: NICOTINE 21 MG/24 HOURS TOPICAL PATCH TD SCH (10:24)
[2021-05-15] MEDS: METHOCARBAMOL 500 MG TABLET PO PRN (10:25)
[2021-05-15 10:31] LABS: HEMATOCRIT 36.4 % (35.4-49); HEMOGLOBIN 12.3 GM/dL (11.7-16.9); MCH 30.6 pg (25.7-33.7); MCHC 33.8 g/dl (32.0-35.9); MEAN CELL VOLUME 90.3 fl (80-96); MEAN PLT VOLUME 9.4 fl (7.5-11.1); PLATELET COUNT 166 10^3/uL (134-434); RBC 4.03 M/mm3 (4.00-5.60); RDW 13.3 % (11.9-15.9); WHITE BLOOD COUNT 5.2 K/mm3 (4.0-10.0)
[2021-05-15] MEDS: BACITRACIN 0.9 GM PACKET TP SCH ×2 (10:32→23:02)
[2021-05-15 10:41] LABS: ALBUMIN 3.6 g/dl (3.4-5.0); BLOOD UREA NITROGEN 16.5 mg/dL (7-18); CALCIUM 8.6 mg/dL (8.5-10.1)
[2021-05-15 10:44] LABS: CREATININE 0.9 mg/dL (0.55-1.3)
[2021-05-15 10:46] LABS: BILIRUBIN,TOTAL 1.2 mg/dL (0.2-1); TOT PROT 6.5 g/dl (6.4-8.2)
[2021-05-15] MEDS: MELATONIN 5 MG TABLETS PO SCH (23:02)
[2021-05-15] MEDS: THIAMINE HCL 100 MG TABLET (FP) PO SCH (23:02)
[2021-05-16] MEDS ORDERED: methaDONE HCL 10 MG TABLET (FOR DETOX USE ONLY) PO ONE (10:00)
[2021-05-16] MEDS: PRENATAL VITAMINS W/ FOLIC ACID TABLET (FP) PO SCH (10:33)
[2021-05-16] MEDS: NICOTINE 21 MG/24 HOURS TOPICAL PATCH TD SCH (10:34)
[2021-05-16] MEDS: METHOCARBAMOL 500 MG TABLET PO PRN (10:35)
[2021-05-16] MEDS: BACITRACIN 0.9 GM PACKET TP SCH ×2 (11:24→21:54)
[2021-05-16] MEDS: MELATONIN 5 MG TABLETS PO SCH (21:54)
[2021-05-16] MEDS: THIAMINE HCL 100 MG TABLET (FP) PO SCH (21:54)
[2021-05-17] MEDS ORDERED: methaDONE HCL 10 MG TABLET (FOR DETOX USE ONLY) ONE (09:21)
[2021-05-17] MEDS: PRENATAL VITAMINS W/ FOLIC ACID TABLET (FP) PO SCH (10:36)
[2021-05-17] MEDS: BACITRACIN 0.9 GM PACKET TP SCH ×2 (10:36→22:01)
[2021-05-17] MEDS: NICOTINE 21 MG/24 HOURS TOPICAL PATCH TD SCH (10:38)
[2021-05-17] MEDS: hydrOXYzine PAMOATE 25 MG CAPSULE (FP) PO PRN ×2 (14:00→21:22)
[2021-05-17] MEDS: METHOCARBAMOL 500 MG TABLET PO PRN (19:38)
[2021-05-17] MEDS: THIAMINE HCL 100 MG TABLET (FP) PO SCH (22:01)
[2021-05-17] MEDS: MELATONIN 5 MG TABLETS PO SCH (22:01)
[2021-05-18 09:47] VITALS: BP 124/64; PULSE 61; TEMP 97.7
[2021-05-18] MEDS ORDERED: methaDONE HCL 10 MG TABLET (FOR DETOX USE ONLY) PO ONE (10:00)
== END 2021-05-18 09:51 | disposition home or self-care (01) | DRG 773 ==
LOC: YASAS 15:08 → Y6N 20:13
PROVIDERS: ADMIT Allergy & Immunology; ATTEND Allergy & Immunology
PROC: HZ2ZZZZ Detoxification Services for Substance Abuse Treatment (ICD-10-PCS; principal; 2021-05-14)
DX: F11.23 Opioid dependence with withdrawal (principal); F10.20 Alcohol dependence, uncomplicated; F14.20 Cocaine dependence, uncomplicated; F15.20 Other stimulant dependence, uncomplicated; F17.210 Nicotine dependence, cigarettes, uncomplicated; F19.24 Other psychoactive substance dependence with psychoactive substance-induced mood disorder; E78.5 Hyperlipidemia, unspecified; R01.1 Cardiac murmur, unspecified; Z87.440 Personal history of urinary (tract) infections; Z87.442 Personal history of urinary calculi
CPT/HCPCS: 36415; 80053; 85027; 86780; C9803; J0735; U0003; U0005

== ENCOUNTER 2021-06-18 14:39 | Inpatient (IN) | payer OTHER ==
[2021-06-18 17:42] VITALS: BMI 21.8
[2021-06-18] MEDS ORDERED: IBUPROFEN 400 MG TABLET (FP) PO PRN (20:38)
[2021-06-18] MEDS ORDERED: MAGNESIUM CITRATE 300 ML BOTTLE PO PRN (20:38)
[2021-06-18] MEDS ORDERED: MAGNESIUM HYDROX 2400MG/30ML ORAL SUSPENSION 30 ML CUP PO PRN (20:38)
[2021-06-18] MEDS ORDERED: clonazePAM 0.5 MG ODT TABLETS SL PRN (20:38)
[2021-06-18] MEDS ORDERED: ONDANSETRON *ODT* 4 MG TABLET SL PRN (20:38)
[2021-06-18] MEDS ORDERED: methaDONE HCL 10 MG TABLET (FOR DETOX USE ONLY) PO ONE (20:38)
[2021-06-18] MEDS ORDERED: MAG HYDROX/AL HYDROX/SIMETH 30 ML UNIT-DOSE CUP PO PRN (20:38)
[2021-06-18] MEDS ORDERED: MENTHOL/PHENOL 1 EACH UD MM PRN (20:38)
[2021-06-18] MEDS ORDERED: BISMUTH SUBSALICYLATE 524 MG/30 ML PO PRN (20:38)
[2021-06-18] MEDS ORDERED: cloNIDine HCL 0.1 MG TABLET PO PRN (20:38)
[2021-06-18] MEDS ORDERED: ACETAMINOPHEN 325 MG TABLET (FP) PO PRN ×2 (20:38)
[2021-06-18] MEDS: hydrOXYzine PAMOATE 25 MG CAPSULE (FP) PO SCH (21:19)
[2021-06-18] MEDS: THIAMINE HCL 100 MG TABLET (FP) PO SCH (21:20)
[2021-06-18] MEDS: MELATONIN 5 MG TABLETS PO SCH (23:27)
[2021-06-19] MEDS: hydrOXYzine PAMOATE 25 MG CAPSULE (FP) PO SCH ×5 (05:05→23:02)
[2021-06-19] MEDS ORDERED: methaDONE HCL 10 MG TABLET (FOR DETOX USE ONLY) ONE (09:10)
[2021-06-19] MEDS: PRENATAL VITAMINS W/ FOLIC ACID TABLET (FP) PO SCH (10:37)
[2021-06-19] MEDS: METHOCARBAMOL 500 MG TABLET PO PRN (10:38)
[2021-06-19] MEDS: NICOTINE 10 MG CARTRIDGE (INHALER) IH PRN (10:39)
[2021-06-19 11:05] LABS: HEMATOCRIT 33.5 % (35.4-49); HEMOGLOBIN 11.5 GM/dL (11.7-16.9); MCH 31.3 pg (25.7-33.7); MCHC 34.4 g/dl (32.0-35.9); MEAN PLT VOLUME 9.4 fl (7.5-11.1); PLATELET COUNT 148 10^3/uL (134-434); RBC 3.68 M/mm3 (4.00-5.60); RDW 13.5 % (11.9-15.9); WHITE BLOOD COUNT 5.4 K/mm3 (4.0-10.0)
[2021-06-19 11:14] LABS: ALBUMIN 3.2 g/dl (3.4-5.0); BLOOD UREA NITROGEN 13.2 mg/dL (7-18)
[2021-06-19 11:16] LABS: BILIRUBIN,TOTAL 0.5 mg/dL (0.2-1); TOT PROT 5.9 g/dl (6.4-8.2)
[2021-06-19 11:18] LABS: CREATININE 0.6 mg/dL (0.55-1.3)
[2021-06-19] MEDS: MELATONIN 5 MG TABLETS PO SCH (23:01)
[2021-06-19] MEDS: THIAMINE HCL 100 MG TABLET (FP) PO SCH (23:02)
[2021-06-20] MEDS: hydrOXYzine PAMOATE 25 MG CAPSULE (FP) PO SCH ×5 (07:28→23:14)
[2021-06-20] MEDS ORDERED: methaDONE HCL 10 MG TABLET (FOR DETOX USE ONLY) PO ONE (10:00)
[2021-06-20] MEDS: PRENATAL VITAMINS W/ FOLIC ACID TABLET (FP) PO SCH (11:13)
[2021-06-20] MEDS: NICOTINE 10 MG CARTRIDGE (INHALER) IH PRN (11:16)
[2021-06-20] MEDS: MELATONIN 5 MG TABLETS PO SCH (23:14)
[2021-06-20] MEDS: THIAMINE HCL 100 MG TABLET (FP) PO SCH (23:14)
[2021-06-21] MEDS: hydrOXYzine PAMOATE 25 MG CAPSULE (FP) PO SCH ×2 (06:11→09:48)
[2021-06-21] MEDS ORDERED: methaDONE HCL 10 MG TABLET (FOR DETOX USE ONLY) ONE (09:03)
[2021-06-21] MEDS: METHOCARBAMOL 500 MG TABLET PO PRN (09:48)
[2021-06-21] MEDS: PRENATAL VITAMINS W/ FOLIC ACID TABLET (FP) PO SCH (09:49)
[2021-06-21] MEDS ORDERED: hydrOXYzine PAMOATE 25 MG CAPSULE (FP) PO PRN (10:54)
[2021-06-21] MEDS: THIAMINE HCL 100 MG TABLET (FP) PO SCH (23:00)
[2021-06-21] MEDS: MELATONIN 5 MG TABLETS PO SCH (23:00)
[2021-06-22 09:54] VITALS: TEMP 97.1
[2021-06-22] MEDS ORDERED: methaDONE HCL 10 MG TABLET (FOR DETOX USE ONLY) PO ONE (10:00)
[2021-06-22] MEDS: PRENATAL VITAMINS W/ FOLIC ACID TABLET (FP) PO SCH (10:46)
[2021-06-22] MEDS: METHOCARBAMOL 500 MG TABLET PO PRN (10:49)
[2021-06-22 14:31] VITALS: BP 108/60; PULSE 63
== END 2021-06-22 14:15 | disposition home or self-care (01) | DRG 773 ==
LOC: YASAS 14:39 → Y3N 19:41
PROVIDERS: ADMIT Allergy & Immunology; ATTEND Allergy & Immunology
PROC: HZ2ZZZZ Detoxification Services for Substance Abuse Treatment (ICD-10-PCS; principal; 2021-06-18)
DX: F11.23 Opioid dependence with withdrawal (principal); F15.20 Other stimulant dependence, uncomplicated; F17.210 Nicotine dependence, cigarettes, uncomplicated; F41.9 Anxiety disorder, unspecified; F32.9 Major depressive disorder, single episode, unspecified; E78.5 Hyperlipidemia, unspecified; R01.1 Cardiac murmur, unspecified; Z87.442 Personal history of urinary calculi
CPT/HCPCS: 36415; 80053; 85027; 86780; C9803; U0003; U0005

== ENCOUNTER 2021-07-24 15:23 | Inpatient (IN) | payer OTHER ==
[2021-07-24] MEDS ORDERED: cloNIDine HCL 0.1 MG TABLET PO PRN (20:21)
[2021-07-24] MEDS ORDERED: clonazePAM 0.5 MG ODT TABLETS SL PRN (20:21)
[2021-07-24] MEDS ORDERED: methaDONE HCL 10 MG TABLET (FOR DETOX USE ONLY) PO ONE (20:21)
[2021-07-24] MEDS ORDERED: MAGNESIUM HYDROX 2400MG/30ML ORAL SUSPENSION 30 ML CUP PO PRN (20:22)
[2021-07-24] MEDS ORDERED: ACETAMINOPHEN 325 MG TABLET (FP) PO PRN ×2 (20:22)
[2021-07-24] MEDS ORDERED: ONDANSETRON *ODT* 4 MG TABLET SL PRN (20:22)
[2021-07-24] MEDS ORDERED: MAG HYDROX/AL HYDROX/SIMETH 30 ML UNIT-DOSE CUP PO PRN (20:22)
[2021-07-24] MEDS ORDERED: BISMUTH SUBSALICYLATE 524 MG/30 ML PO PRN (20:22)
[2021-07-24] MEDS ORDERED: IBUPROFEN 400 MG TABLET (FP) PO PRN (20:22)
[2021-07-24] MEDS ORDERED: MAGNESIUM CITRATE 300 ML BOTTLE PO PRN (20:22)
[2021-07-24] MEDS ORDERED: MENTHOL/PHENOL 1 EACH UD MM PRN (20:22)
[2021-07-24 21:06] VITALS: BMI 21.7
[2021-07-24] MEDS ORDERED: hydrOXYzine PAMOATE 25 MG CAPSULE (FP) PO SCH (22:00)
[2021-07-24] MEDS ORDERED: methaDONE HCL 10 MG TABLET (FOR DETOX USE ONLY) ONE (22:35)
[2021-07-24] MEDS: MELATONIN 5 MG TABLETS PO SCH (23:55)
[2021-07-24] MEDS: THIAMINE HCL 100 MG TABLET (FP) PO SCH (23:55)
[2021-07-25] MEDS ORDERED: methaDONE HCL 10 MG TABLET (FOR DETOX USE ONLY) ONE (09:22)
[2021-07-25] MEDS: PRENATAL VITAMINS W/ FOLIC ACID TABLET (FP) PO SCH (10:27)
[2021-07-25] MEDS: METHOCARBAMOL 500 MG TABLET PO PRN (10:29)
[2021-07-25 10:58] LABS: HEMATOCRIT 37.2 % (35.4-49); HEMOGLOBIN 12.5 GM/dL (11.7-16.9); MCH 30.7 pg (25.7-33.7); MCHC 33.5 g/dl (32.0-35.9); MEAN CELL VOLUME 91.6 fl (80-96); MEAN PLT VOLUME 9.6 fl (7.5-11.1); PLATELET COUNT 167 10^3/uL (134-434); RBC 4.07 M/mm3 (4.00-5.60); RDW 13.4 % (11.9-15.9); WHITE BLOOD COUNT 5.2 K/mm3 (4.0-10.0)
[2021-07-25 11:05] LABS: CALCIUM 8.4 mg/dL (8.5-10.1)
[2021-07-25 11:06] LABS: ALBUMIN 3.4 g/dl (3.4-5.0); BLOOD UREA NITROGEN 17.6 mg/dL (7-18)
[2021-07-25 11:09] LABS: CREATININE 0.7 mg/dL (0.55-1.3)
[2021-07-25 11:11] LABS: TOT PROT 6.7 g/dl (6.4-8.2)
[2021-07-25] MEDS: MELATONIN 5 MG TABLETS PO SCH (23:13)
[2021-07-25] MEDS: THIAMINE HCL 100 MG TABLET (FP) PO SCH (23:13)
[2021-07-26] MEDS ORDERED: methaDONE HCL 10 MG TABLET (FOR DETOX USE ONLY) PO ONE (10:00)
[2021-07-26] MEDS: PRENATAL VITAMINS W/ FOLIC ACID TABLET (FP) PO SCH (10:25)
[2021-07-26] MEDS: diazePAM 5 MG TABLET PO PRN (10:26)
[2021-07-26] MEDS: MELATONIN 5 MG TABLETS PO SCH (22:41)
[2021-07-26] MEDS: THIAMINE HCL 100 MG TABLET (FP) PO SCH (22:41)
[2021-07-27] MEDS ORDERED: methaDONE HCL 10 MG TABLET (FOR DETOX USE ONLY) ONE (09:02)
[2021-07-27] MEDS: PRENATAL VITAMINS W/ FOLIC ACID TABLET (FP) PO SCH (09:23)
[2021-07-27] MEDS: MELATONIN 5 MG TABLETS PO SCH (23:20)
[2021-07-27] MEDS: THIAMINE HCL 100 MG TABLET (FP) PO SCH (23:20)
[2021-07-28] MEDS: METHOCARBAMOL 500 MG TABLET PO PRN (08:53)
[2021-07-28] MEDS: diazePAM 5 MG TABLET PO PRN ×2 (08:53→14:17)
[2021-07-28] MEDS: NICOTINE 10 MG CARTRIDGE (INHALER) IH PRN ×2 (08:54→14:17)
[2021-07-28] MEDS: PRENATAL VITAMINS W/ FOLIC ACID TABLET (FP) PO SCH (09:12)
[2021-07-28] MEDS ORDERED: methaDONE HCL 10 MG TABLET (FOR DETOX USE ONLY) PO ONE (10:00)
[2021-07-28 17:22] VITALS: BP 117/71; PULSE 75; TEMP 98.1
[2021-07-28] MEDS: MELATONIN 5 MG TABLETS PO SCH (23:22)
[2021-07-28] MEDS: THIAMINE HCL 100 MG TABLET (FP) PO SCH (23:22)
== END 2021-07-28 18:00 | disposition home or self-care (01) | DRG 773 ==
LOC: YASAS 15:23 → Y6N 23:03
PROVIDERS: ADMIT Allergy & Immunology; ATTEND Allergy & Immunology
PROC: HZ2ZZZZ Detoxification Services for Substance Abuse Treatment (ICD-10-PCS; principal; 2021-07-24)
DX: F11.23 Opioid dependence with withdrawal (principal); F10.20 Alcohol dependence, uncomplicated; F14.20 Cocaine dependence, uncomplicated; F15.20 Other stimulant dependence, uncomplicated; F16.20 Hallucinogen dependence, uncomplicated; F12.20 Cannabis dependence, uncomplicated; F17.210 Nicotine dependence, cigarettes, uncomplicated; F19.282 Other psychoactive substance dependence with psychoactive substance-induced sleep disorder; F19.24 Other psychoactive substance dependence with psychoactive substance-induced mood disorder; F32.9 Major depressive disorder, single episode, unspecified; E78.5 Hyperlipidemia, unspecified; G47.00 Insomnia, unspecified; R01.1 Cardiac murmur, unspecified; Z91.19 Patient's noncompliance with other medical treatment and regimen; Z87.448 Personal history of other diseases of urinary system; Z59.0 Homelessness
CPT/HCPCS: 36415; 80053; 85027; 86780; C9803; U0003; U0005

== ENCOUNTER 2022-07-01 17:49 | Inpatient (IN) | payer OTHER ==
[2022-07-01] MEDS ORDERED: cloNIDine HCL 0.1 MG TABLET PO PRN (19:01)
[2022-07-01] MEDS ORDERED: MAG HYDROX/AL HYDROX/SIMETH 30 ML UNIT-DOSE CUP PO PRN (19:01)
[2022-07-01] MEDS ORDERED: ACETAMINOPHEN 325 MG TABLET (FP) PO PRN ×2 (19:01)
[2022-07-01] MEDS ORDERED: NICOTINE 10 MG CARTRIDGE (INHALER) IH PRN (19:01)
[2022-07-01] MEDS ORDERED: NALOXONE HCL 0.4 MG/ML VIAL IM PRN (19:01)
[2022-07-01] MEDS ORDERED: METHOCARBAMOL 500 MG TABLET PO PRN (19:01)
[2022-07-01] MEDS ORDERED: IBUPROFEN 600 MG TABLET (FP) PO PRN (19:01)
[2022-07-01] MEDS ORDERED: diazePAM 5 MG TABLET PO PRN (19:01)
[2022-07-01] MEDS ORDERED: MAGNESIUM CITRATE 300 ML BOTTLE PO PRN (19:01)
[2022-07-01] MEDS ORDERED: DICYCLOMINE HCL 10 MG CAPSULE PO PRN (19:01)
[2022-07-01] MEDS ORDERED: methaDONE HCL 10 MG TABLET (FOR DETOX USE ONLY) PO ONE (19:01)
[2022-07-01] MEDS ORDERED: BISMUTH SUBSALICYLATE 524 MG/30 ML PO PRN (19:01)
[2022-07-01] MEDS ORDERED: MAGNESIUM HYDROX 2400MG/30ML ORAL SUSPENSION 30 ML CUP PO PRN (19:01)
[2022-07-01] MEDS ORDERED: LOPERAMIDE HCL 2 MG CAPSULE PO PRN (19:01)
[2022-07-01] MEDS ORDERED: IBUPROFEN 400 MG TABLET (FP) PO PRN (19:01)
[2022-07-01] MEDS ORDERED: BENZOCAINE/MENTHOL (CHLORASEPTIC ) LOZENGE MM PRN (19:01)
[2022-07-01 19:07] VITALS: BMI 23.0
[2022-07-01] MEDS: THIAMINE HCL 100 MG TABLET (FP) PO SCH (23:18)
[2022-07-01] MEDS: diazePAM 5 MG TABLET PO SCH (23:18)
[2022-07-01] MEDS: MELATONIN 5 MG TABLETS PO SCH (23:18)
[2022-07-02] MEDS: diazePAM 5 MG TABLET PO SCH ×4 (05:50→23:12)
[2022-07-02] MEDS: NICOTINE 7 MG/24 HOURS TOPICAL PATCH TD SCH (11:06)
[2022-07-02] MEDS: PRENATAL VITAMINS W/ FOLIC ACID TABLET (FP) PO SCH (11:06)
[2022-07-02 11:49] LABS: HEMATOCRIT 35.6 % (35.4-49); HEMOGLOBIN 12.2 GM/dL (11.7-16.9); MCH 31.4 pg (25.7-33.7); MCHC 34.2 g/dl (32.0-35.9); MEAN CELL VOLUME 91.8 fl (80-96); MEAN PLT VOLUME 9.9 fl (7.5-11.1); PLATELET COUNT 144 10^3/uL (134-434); RBC 3.88 M/mm3 (4.00-5.60); RDW 13.1 % (11.9-15.9); WHITE BLOOD COUNT 4.1 K/mm3 (4.0-10.0)
[2022-07-02 11:51] LABS: ALBUMIN 3.4 g/dl (3.4-5.0); BLOOD UREA NITROGEN 12.9 mg/dL (7-18); CALCIUM 8.4 mg/dL (8.5-10.1)
[2022-07-02 11:54] LABS: CREATININE 0.8 mg/dL (0.55-1.3)
[2022-07-02 11:56] LABS: BILIRUBIN,TOTAL 0.4 mg/dL (0.2-1); TOT PROT 6.3 g/dl (6.4-8.2)
[2022-07-02] MEDS: THIAMINE HCL 100 MG TABLET (FP) PO SCH (23:12)
[2022-07-02] MEDS: MELATONIN 5 MG TABLETS PO SCH (23:12)
[2022-07-03] MEDS ORDERED: diazePAM 5 MG TABLET PO SCH (06:00)
[2022-07-03 09:24] VITALS: BP 115/62; PULSE 65; RESP 18; TEMP 98.1
[2022-07-03] MEDS ORDERED: methaDONE HCL 10 MG TABLET (FOR DETOX USE ONLY) PO ONE (10:00)
[2022-07-03] MEDS: PRENATAL VITAMINS W/ FOLIC ACID TABLET (FP) PO SCH (10:30)
[2022-07-03] MEDS: NICOTINE 7 MG/24 HOURS TOPICAL PATCH TD SCH (10:30)
[2022-07-04] MEDS ORDERED: diazePAM 5 MG TABLET PO SCH (06:00)
[2022-07-05] MEDS ORDERED: diazePAM 5 MG TABLET PO ONE (06:00)
[2022-07-05] MEDS ORDERED: methaDONE HCL 10 MG TABLET (FOR DETOX USE ONLY) PO ONE (10:00)
== END 2022-07-03 10:50 | disposition left against medical advice (07) | DRG 770 ==
LOC: YASAS 17:49 → Y6N 20:25
PROVIDERS: ADMIT Allergy & Immunology; ATTEND Surgery
PROC: HZ2ZZZZ Detoxification Services for Substance Abuse Treatment (ICD-10-PCS; principal; 2022-07-01)
DX: F11.23 Opioid dependence with withdrawal (principal); F13.230 Sedative, hypnotic or anxiolytic dependence with withdrawal, uncomplicated; F14.20 Cocaine dependence, uncomplicated; F17.210 Nicotine dependence, cigarettes, uncomplicated; R01.1 Cardiac murmur, unspecified; Z62.810 Personal history of physical and sexual abuse in childhood; Z56.0 Unemployment, unspecified
CPT/HCPCS: 36415; 80053; 85027; 86780; 87811; C9803-CS; U0003; U0005

== ENCOUNTER 2022-07-11 17:36 | Inpatient (IN) | payer OTHER ==
[2022-07-11 18:25] VITALS: BMI 23.7
[2022-07-11] MEDS ORDERED: LOPERAMIDE HCL 2 MG CAPSULE PO PRN (21:01)
[2022-07-11] MEDS ORDERED: MAGNESIUM CITRATE 300 ML BOTTLE PO PRN (21:01)
[2022-07-11] MEDS ORDERED: BISMUTH SUBSALICYLATE 524 MG/30 ML PO PRN (21:01)
[2022-07-11] MEDS ORDERED: MAGNESIUM HYDROX 2400MG/30ML ORAL SUSPENSION 30 ML CUP PO PRN (21:01)
[2022-07-11] MEDS ORDERED: MAG HYDROX/AL HYDROX/SIMETH 30 ML UNIT-DOSE CUP PO PRN (21:01)
[2022-07-11] MEDS ORDERED: ACETAMINOPHEN 325 MG TABLET (FP) PO PRN ×2 (21:01)
[2022-07-11] MEDS ORDERED: cloNIDine HCL 0.1 MG TABLET PO PRN (21:01)
[2022-07-11] MEDS ORDERED: BENZOCAINE/MENTHOL (CHLORASEPTIC ) LOZENGE MM PRN (21:01)
[2022-07-11] MEDS ORDERED: IBUPROFEN 600 MG TABLET (FP) PO PRN (21:01)
[2022-07-11] MEDS ORDERED: DICYCLOMINE HCL 10 MG CAPSULE PO PRN (21:01)
[2022-07-11] MEDS ORDERED: METHOCARBAMOL 500 MG TABLET PO PRN (21:01)
[2022-07-11] MEDS ORDERED: NICOTINE POLACRILEX 2 MG GUM BUC PRN (21:01)
[2022-07-11] MEDS ORDERED: methaDONE HCL 10 MG TABLET (FOR DETOX USE ONLY) PO ONE (21:01)
[2022-07-11] MEDS ORDERED: IBUPROFEN 400 MG TABLET (FP) PO PRN (21:01)
[2022-07-11] MEDS ORDERED: ONDANSETRON *ODT* 4 MG TABLET SL PRN (21:01)
[2022-07-11] MEDS ORDERED: methaDONE HCL 10 MG TABLET (FOR DETOX USE ONLY) ONE (22:42)
[2022-07-11] MEDS: MELATONIN 5 MG TABLETS PO SCH (23:21)
[2022-07-11] MEDS: THIAMINE HCL 100 MG TABLET (FP) PO SCH (23:21)
[2022-07-12] MEDS: PRENATAL VITAMINS W/ FOLIC ACID TABLET (FP) PO SCH (10:28)
[2022-07-12] MEDS: NICOTINE 14 MG/24 HOURS TOPICAL PATCH TD SCH (10:30)
[2022-07-12 11:37] LABS: HEMATOCRIT 38.9 % (35.4-49); HEMOGLOBIN 13.1 GM/dL (11.7-16.9); MCH 30.7 pg (25.7-33.7); MCHC 33.6 g/dl (32.0-35.9); MEAN CELL VOLUME 91.3 fl (80-96); MEAN PLT VOLUME 9.5 fl (7.5-11.1); PLATELET COUNT 171 10^3/uL (134-434); RBC 4.26 M/mm3 (4.00-5.60); RDW 13.4 % (11.9-15.9); WHITE BLOOD COUNT 2.9 K/mm3 (4.0-10.0)
[2022-07-12 11:53] LABS: ALBUMIN 3.5 g/dl (3.4-5.0); CALCIUM 8.3 mg/dL (8.5-10.1)
[2022-07-12 11:54] LABS: BLOOD UREA NITROGEN 18.4 mg/dL (7-18)
[2022-07-12 11:57] LABS: CREATININE 0.7 mg/dL (0.55-1.3)
[2022-07-12 11:58] LABS: BILIRUBIN,TOTAL 0.5 mg/dL (0.2-1); TOT PROT 6.6 g/dl (6.4-8.2)
[2022-07-12] MEDS: THIAMINE HCL 100 MG TABLET (FP) PO SCH (23:05)
[2022-07-12] MEDS: MELATONIN 5 MG TABLETS PO SCH (23:05)
[2022-07-13] MEDS ORDERED: methaDONE HCL 10 MG TABLET (FOR DETOX USE ONLY) PO ONE (10:00)
[2022-07-13] MEDS: NICOTINE 14 MG/24 HOURS TOPICAL PATCH TD SCH (10:32)
[2022-07-13] MEDS: PRENATAL VITAMINS W/ FOLIC ACID TABLET (FP) PO SCH (10:32)
[2022-07-13] MEDS ORDERED: NICOTINE 10 MG CARTRIDGE (INHALER) IH PRN (12:58)
[2022-07-13] MEDS: diazePAM 5 MG TABLET PO PRN ×2 (13:37→22:21)
[2022-07-13 18:08] VITALS: RESP 18
[2022-07-13] MEDS: MELATONIN 5 MG TABLETS PO SCH (22:20)
[2022-07-13] MEDS: THIAMINE HCL 100 MG TABLET (FP) PO SCH (22:21)
[2022-07-14 09:04] VITALS: BP 100/68; PULSE 56; TEMP 98.2
[2022-07-14] MEDS: NICOTINE 14 MG/24 HOURS TOPICAL PATCH TD SCH (10:36)
[2022-07-14] MEDS: PRENATAL VITAMINS W/ FOLIC ACID TABLET (FP) PO SCH (10:36)
[2022-07-15] MEDS ORDERED: methaDONE HCL 10 MG TABLET (FOR DETOX USE ONLY) PO ONE (10:00)
== END 2022-07-14 10:18 | disposition left against medical advice (07) | DRG 770 ==
LOC: YASAS 17:36 → Y3N 23:14
PROVIDERS: ADMIT Allergy & Immunology; ATTEND Family Medicine Addiction Medicine
PROC: HZ2ZZZZ Detoxification Services for Substance Abuse Treatment (ICD-10-PCS; principal; 2022-07-11)
DX: F11.23 Opioid dependence with withdrawal (principal); F14.20 Cocaine dependence, uncomplicated; F13.20 Sedative, hypnotic or anxiolytic dependence, uncomplicated; F16.20 Hallucinogen dependence, uncomplicated; F17.210 Nicotine dependence, cigarettes, uncomplicated; E78.5 Hyperlipidemia, unspecified; Z87.448 Personal history of other diseases of urinary system; Z56.0 Unemployment, unspecified; Z59.00 Homelessness unspecified
CPT/HCPCS: 36415; 80053; 85027; 86780; C9803-CS; U0003; U0005

== ENCOUNTER 2022-07-17 08:15 | Inpatient (IN) | payer OTHER ==
[2022-07-17 09:35] VITALS: BMI 21.7
[2022-07-17] MEDS ORDERED: cloNIDine HCL 0.1 MG TABLET PO PRN (10:14)
[2022-07-17] MEDS ORDERED: MAGNESIUM CITRATE 300 ML BOTTLE PO PRN (10:14)
[2022-07-17] MEDS ORDERED: NICOTINE POLACRILEX 2 MG GUM BUC PRN (10:14)
[2022-07-17] MEDS ORDERED: IBUPROFEN 400 MG TABLET (FP) PO PRN (10:14)
[2022-07-17] MEDS ORDERED: DICYCLOMINE HCL 10 MG CAPSULE PO PRN (10:14)
[2022-07-17] MEDS ORDERED: MAGNESIUM HYDROX 2400MG/30ML ORAL SUSPENSION 30 ML CUP PO PRN (10:14)
[2022-07-17] MEDS ORDERED: BISMUTH SUBSALICYLATE 524 MG/30 ML PO PRN (10:14)
[2022-07-17] MEDS ORDERED: BENZOCAINE/MENTHOL (CHLORASEPTIC ) LOZENGE MM PRN (10:14)
[2022-07-17] MEDS ORDERED: NALOXONE HCL (KLOXXADO) 8 MG SPRAY NS PRN (10:14)
[2022-07-17] MEDS ORDERED: ACETAMINOPHEN 325 MG TABLET (FP) PO PRN ×2 (10:14)
[2022-07-17] MEDS ORDERED: METHOCARBAMOL 500 MG TABLET PO PRN (10:14)
[2022-07-17] MEDS ORDERED: IBUPROFEN 600 MG TABLET (FP) PO PRN (10:14)
[2022-07-17] MEDS ORDERED: LOPERAMIDE HCL 2 MG CAPSULE PO PRN (10:14)
[2022-07-17] MEDS ORDERED: MAG HYDROX/AL HYDROX/SIMETH 30 ML UNIT-DOSE CUP PO PRN (10:14)
[2022-07-17] MEDS ORDERED: ONDANSETRON *ODT* 4 MG TABLET SL PRN (10:14)
[2022-07-17] MEDS ORDERED: diazePAM 5 MG TABLET PO PRN (10:38)
[2022-07-17] MEDS ORDERED: methaDONE HCL 10 MG TABLET (FOR DETOX USE ONLY) PO ONE (10:45)
[2022-07-17] MEDS: hydrOXYzine PAMOATE 25 MG CAPSULE (FP) PO SCH ×3 (13:22→22:26)
[2022-07-17] MEDS: NICOTINE 10 MG CARTRIDGE (INHALER) IH PRN ×2 (13:24→22:27)
[2022-07-17] MEDS: NICOTINE 14 MG/24 HOURS TOPICAL PATCH TD SCH (13:24)
[2022-07-17 13:27] LABS: HEMATOCRIT 39.2 % (35.4-49); MCH 30.5 pg (25.7-33.7); MCHC 33.2 g/dl (32.0-35.9); MEAN CELL VOLUME 91.8 fl (80-96); MEAN PLT VOLUME 9.6 fl (7.5-11.1); PLATELET COUNT 217 10^3/uL (134-434); RBC 4.27 M/mm3 (4.00-5.60); RDW 13.1 % (11.9-15.9); WHITE BLOOD COUNT 5.9 K/mm3 (4.0-10.0)
[2022-07-17 13:30] LABS: CALCIUM 8.8 mg/dL (8.5-10.1)
[2022-07-17 13:31] LABS: ALBUMIN 3.9 g/dl (3.4-5.0); BLOOD UREA NITROGEN 16.4 mg/dL (7-18)
[2022-07-17 13:36] LABS: BILIRUBIN,TOTAL 0.5 mg/dL (0.2-1); TOT PROT 7.1 g/dl (6.4-8.2)
[2022-07-17] MEDS: diazePAM 5 MG TABLET PO SCH ×2 (18:09→22:26)
[2022-07-17] MEDS: THIAMINE HCL 100 MG TABLET (FP) PO SCH (22:26)
[2022-07-17] MEDS: MELATONIN 5 MG TABLETS PO SCH (22:26)
[2022-07-18] MEDS: hydrOXYzine PAMOATE 25 MG CAPSULE (FP) PO SCH ×5 (05:44→22:20)
[2022-07-18] MEDS: diazePAM 5 MG TABLET PO SCH ×4 (05:45→22:20)
[2022-07-18] MEDS: PRENATAL VITAMINS W/ FOLIC ACID TABLET (FP) PO SCH (10:29)
[2022-07-18] MEDS: NICOTINE 14 MG/24 HOURS TOPICAL PATCH TD SCH (10:29)
[2022-07-18] MEDS: FLUoxetine HCL 20 MG CAPSULE PO SCH (10:30)
[2022-07-18] MEDS: NICOTINE 10 MG CARTRIDGE (INHALER) IH PRN ×2 (17:39→22:21)
[2022-07-18] MEDS: THIAMINE HCL 100 MG TABLET (FP) PO SCH (22:20)
[2022-07-18] MEDS: MELATONIN 5 MG TABLETS PO SCH (22:20)
[2022-07-19] MEDS: diazePAM 5 MG TABLET PO SCH ×3 (05:45→22:26)
[2022-07-19] MEDS: hydrOXYzine PAMOATE 25 MG CAPSULE (FP) PO SCH ×5 (05:45→22:26)
[2022-07-19] MEDS: NICOTINE 10 MG CARTRIDGE (INHALER) IH PRN ×4 (05:47→22:28)
[2022-07-19 06:32] VITALS: RESP 18
[2022-07-19] MEDS ORDERED: methaDONE HCL 10 MG TABLET (FOR DETOX USE ONLY) PO ONE (10:00)
[2022-07-19] MEDS: FLUoxetine HCL 20 MG CAPSULE PO SCH (10:20)
[2022-07-19] MEDS: PRENATAL VITAMINS W/ FOLIC ACID TABLET (FP) PO SCH (10:20)
[2022-07-19] MEDS: NICOTINE 14 MG/24 HOURS TOPICAL PATCH TD SCH (10:20)
[2022-07-19] MEDS: MELATONIN 5 MG TABLETS PO SCH (22:26)
[2022-07-19] MEDS: THIAMINE HCL 100 MG TABLET (FP) PO SCH (22:26)
[2022-07-20] MEDS ORDERED: diazePAM 5 MG TABLET PO SCH (06:00)
[2022-07-20] MEDS: hydrOXYzine PAMOATE 25 MG CAPSULE (FP) PO SCH ×2 (06:25→10:08)
[2022-07-20 10:03] VITALS: BP 121/72; PULSE 103; TEMP 97.6
[2022-07-20] MEDS: NICOTINE 10 MG CARTRIDGE (INHALER) IH PRN (10:07)
[2022-07-20] MEDS: PRENATAL VITAMINS W/ FOLIC ACID TABLET (FP) PO SCH (10:07)
[2022-07-20] MEDS: FLUoxetine HCL 20 MG CAPSULE PO SCH (10:08)
[2022-07-20] MEDS: NICOTINE 14 MG/24 HOURS TOPICAL PATCH TD SCH (10:08)
[2022-07-21] MEDS ORDERED: diazePAM 5 MG TABLET PO ONE (06:00)
[2022-07-21] MEDS ORDERED: methaDONE HCL 10 MG TABLET (FOR DETOX USE ONLY) PO ONE (10:00)
== END 2022-07-20 12:00 | disposition home or self-care (01) | DRG 773 ==
LOC: YASAS 08:15 → Y6N 12:46
PROVIDERS: ADMIT Allergy & Immunology; ATTEND Surgery
PROC: HZ2ZZZZ Detoxification Services for Substance Abuse Treatment (ICD-10-PCS; principal; 2022-07-17)
DX: F11.23 Opioid dependence with withdrawal (principal); F13.20 Sedative, hypnotic or anxiolytic dependence, uncomplicated; F14.20 Cocaine dependence, uncomplicated; F17.210 Nicotine dependence, cigarettes, uncomplicated; F16.10 Hallucinogen abuse, uncomplicated; F34.1 Dysthymic disorder; F19.282 Other psychoactive substance dependence with psychoactive substance-induced sleep disorder; Z87.448 Personal history of other diseases of urinary system
CPT/HCPCS: 36415; 80053; 85027; 86780; 87811; C9803-CS; U0003; U0005

== ENCOUNTER 2022-07-30 04:37 | Inpatient (IN) | payer OTHER ==
[2022-07-30 04:42] VITALS: BMI 21.9
[2022-07-30] MEDS ORDERED: NALOXONE HCL (KLOXXADO) 8 MG SPRAY NS PRN (05:03)
[2022-07-30] MEDS ORDERED: MAGNESIUM HYDROX 2400MG/30ML ORAL SUSPENSION 30 ML CUP PO PRN (05:03)
[2022-07-30] MEDS ORDERED: IBUPROFEN 600 MG TABLET (FP) PO PRN (05:03)
[2022-07-30] MEDS ORDERED: IBUPROFEN 400 MG TABLET (FP) PO PRN (05:03)
[2022-07-30] MEDS ORDERED: DICYCLOMINE HCL 10 MG CAPSULE PO PRN (05:03)
[2022-07-30] MEDS ORDERED: methaDONE HCL 10 MG TABLET (FOR DETOX USE ONLY) PO ONE ×2 (05:03→10:00)
[2022-07-30] MEDS ORDERED: guaiFENesin 200 MG/10 ML 10 ML UNIT-DOSE CUPS PO PRN (05:03)
[2022-07-30] MEDS ORDERED: BENZOCAINE/MENTHOL (CHLORASEPTIC ) LOZENGE MM PRN (05:03)
[2022-07-30] MEDS ORDERED: ACETAMINOPHEN 325 MG TABLET (FP) PO PRN ×2 (05:03)
[2022-07-30] MEDS ORDERED: BISMUTH SUBSALICYLATE 524 MG/30 ML PO PRN (05:03)
[2022-07-30] MEDS ORDERED: NICOTINE POLACRILEX 2 MG GUM BUC PRN (05:03)
[2022-07-30] MEDS ORDERED: P-EPHED 60MG/TRIPROLIDI 2.5MG TABLET PO PRN (05:03)
[2022-07-30] MEDS ORDERED: LOPERAMIDE HCL 2 MG CAPSULE PO PRN (05:03)
[2022-07-30] MEDS ORDERED: MAG HYDROX/AL HYDROX/SIMETH 30 ML UNIT-DOSE CUP PO PRN (05:03)
[2022-07-30] MEDS ORDERED: cloNIDine HCL 0.1 MG TABLET PO PRN (05:03)
[2022-07-30] MEDS ORDERED: NALOXONE HCL 0.4 MG/ML VIAL IM PRN (05:03)
[2022-07-30] MEDS ORDERED: MAGNESIUM CITRATE 300 ML BOTTLE PO PRN (05:03)
[2022-07-30] MEDS ORDERED: ONDANSETRON *ODT* 4 MG TABLET SL PRN (05:03)
[2022-07-30] MEDS ORDERED: diazePAM 5 MG TABLET ONE (05:29)
[2022-07-30] MEDS ORDERED: methaDONE HCL 10 MG TABLET (FOR DETOX USE ONLY) ONE (05:29)
[2022-07-30] MEDS: diazePAM 5 MG TABLET PO SCH ×4 (05:33→18:07)
[2022-07-30] MEDS ORDERED: NICOTINE 14 MG/24 HOURS TOPICAL PATCH TD PRN (09:02)
[2022-07-30] MEDS ORDERED: NICOTINE 14 MG/24 HOURS TOPICAL PATCH TD SCH (10:00)
[2022-07-30] MEDS: PRENATAL VITAMINS W/ FOLIC ACID TABLET (FP) PO SCH (10:20)
[2022-07-30] MEDS: METHOCARBAMOL 500 MG TABLET PO PRN ×2 (10:23→22:18)
[2022-07-30] MEDS: NICOTINE 10 MG CARTRIDGE (INHALER) IH PRN ×3 (10:23→19:07)
[2022-07-30 13:27] LABS: HEMATOCRIT 35.5 % (35.4-49); HEMOGLOBIN 11.8 GM/dL (11.7-16.9); MCH 30.4 pg (25.7-33.7); MCHC 33.2 g/dl (32.0-35.9); MEAN CELL VOLUME 91.5 fl (80-96); MEAN PLT VOLUME 10.3 fl (7.5-11.1); PLATELET COUNT 173 10^3/uL (134-434); RBC 3.88 M/mm3 (4.00-5.60); RDW 13.2 % (11.9-15.9); WHITE BLOOD COUNT 5.9 K/mm3 (4.0-10.0)
[2022-07-30 13:30] LABS: CALCIUM 8.6 mg/dL (8.5-10.1)
[2022-07-30 13:31] LABS: ALBUMIN 3.3 g/dl (3.4-5.0); BLOOD UREA NITROGEN 16.2 mg/dL (7-18)
[2022-07-30 13:34] LABS: CREATININE 0.7 mg/dL (0.55-1.3)
[2022-07-30 13:35] LABS: TOT PROT 6.1 g/dl (6.4-8.2)
[2022-07-30 13:36] LABS: BILIRUBIN,TOTAL 0.4 mg/dL (0.2-1)
[2022-07-30] MEDS: diazePAM 5 MG TABLET PO PRN (15:35)
[2022-07-30] MEDS: MELATONIN 5 MG TABLETS PO SCH (22:15)
[2022-07-30] MEDS: THIAMINE HCL 100 MG TABLET (FP) PO SCH (22:16)
[2022-07-31] MEDS: diazePAM 5 MG TABLET PO SCH ×3 (05:41→22:23)
[2022-07-31] MEDS: NICOTINE 10 MG CARTRIDGE (INHALER) IH PRN ×4 (05:41→22:23)
[2022-07-31] MEDS: METHOCARBAMOL 500 MG TABLET PO PRN ×2 (10:10→22:23)
[2022-07-31] MEDS: PRENATAL VITAMINS W/ FOLIC ACID TABLET (FP) PO SCH (10:10)
[2022-07-31] MEDS: diazePAM 5 MG TABLET PO PRN (20:29)
[2022-07-31] MEDS: THIAMINE HCL 100 MG TABLET (FP) PO SCH (22:22)
[2022-07-31] MEDS: MELATONIN 5 MG TABLETS PO SCH (22:23)
[2022-08-01] MEDS: diazePAM 5 MG TABLET PO SCH ×2 (06:09→17:08)
[2022-08-01] MEDS: NICOTINE 10 MG CARTRIDGE (INHALER) IH PRN ×4 (06:10→20:33)
[2022-08-01] MEDS ORDERED: methaDONE HCL 10 MG TABLET (FOR DETOX USE ONLY) PO ONE (10:00)
[2022-08-01] MEDS: PRENATAL VITAMINS W/ FOLIC ACID TABLET (FP) PO SCH (10:08)
[2022-08-01] MEDS: METHOCARBAMOL 500 MG TABLET PO PRN ×2 (10:09→22:26)
[2022-08-01] MEDS: diazePAM 5 MG TABLET PO PRN ×3 (10:09→20:34)
[2022-08-01] MEDS: THIAMINE HCL 100 MG TABLET (FP) PO SCH (22:24)
[2022-08-01] MEDS: MELATONIN 5 MG TABLETS PO SCH (22:24)
[2022-08-02] MEDS ORDERED: diazePAM 5 MG TABLET PO ONE (06:00)
[2022-08-02] MEDS: NICOTINE 10 MG CARTRIDGE (INHALER) IH PRN ×4 (10:12→20:02)
[2022-08-02] MEDS: PRENATAL VITAMINS W/ FOLIC ACID TABLET (FP) PO SCH (10:14)
[2022-08-02] MEDS: METHOCARBAMOL 500 MG TABLET PO PRN ×2 (14:23→20:02)
[2022-08-02] MEDS: MELATONIN 5 MG TABLETS PO SCH (22:45)
[2022-08-02] MEDS: THIAMINE HCL 100 MG TABLET (FP) PO SCH (22:45)
[2022-08-03] MEDS: METHOCARBAMOL 500 MG TABLET PO PRN ×2 (09:37→17:29)
[2022-08-03] MEDS: PRENATAL VITAMINS W/ FOLIC ACID TABLET (FP) PO SCH (09:37)
[2022-08-03] MEDS: NICOTINE 10 MG CARTRIDGE (INHALER) IH PRN ×5 (09:39→20:00)
[2022-08-03] MEDS ORDERED: methaDONE HCL 10 MG TABLET (FOR DETOX USE ONLY) PO ONE (10:00)
[2022-08-03 10:16] VITALS: RESP 18
[2022-08-03] MEDS: THIAMINE HCL 100 MG TABLET (FP) PO SCH (22:20)
[2022-08-03] MEDS: MELATONIN 5 MG TABLETS PO SCH (22:20)
[2022-08-04] MEDS: NICOTINE 10 MG CARTRIDGE (INHALER) IH PRN ×2 (09:11→12:13)
[2022-08-04] MEDS: PRENATAL VITAMINS W/ FOLIC ACID TABLET (FP) PO SCH (09:12)
[2022-08-04 11:59] VITALS: BP 124/70; PULSE 85; TEMP 97.5
== END 2022-08-04 12:50 | disposition other institution (70) | DRG 773 ==
LOC: YASAS 04:37 → Y6N 05:25
PROVIDERS: ADMIT Allergy & Immunology; ATTEND Surgery
PROC: HZ2ZZZZ Detoxification Services for Substance Abuse Treatment (ICD-10-PCS; principal; 2022-07-30)
DX: F11.23 Opioid dependence with withdrawal (principal); F13.230 Sedative, hypnotic or anxiolytic dependence with withdrawal, uncomplicated; F16.20 Hallucinogen dependence, uncomplicated; F17.210 Nicotine dependence, cigarettes, uncomplicated; F19.280 Other psychoactive substance dependence with psychoactive substance-induced anxiety disorder; F19.282 Other psychoactive substance dependence with psychoactive substance-induced sleep disorder; F32.A Depression, unspecified; E78.5 Hyperlipidemia, unspecified; Z87.442 Personal history of urinary calculi; Z87.440 Personal history of urinary (tract) infections
CPT/HCPCS: 36415; 80053; 85027; 86780; C9803-CS; Q0162; U0003; U0005

== ENCOUNTER 2022-08-04 13:17 | Inpatient (IN) | payer OTHER ==
[~2022-08-04 13:17] MED LIST: ACETAMINOPHEN 325 MG TABLET (FP) PO PRN; IBUPROFEN 400 MG TABLET (FP) PO PRN; LOPERAMIDE HCL 2 MG CAPSULE PO PRN; MAGNESIUM CITRATE 300 ML BOTTLE PO PRN; MAGNESIUM HYDROX 2400MG/30ML ORAL SUSPENSION 30 ML CUP PO PRN; P-EPHED 60MG/TRIPROLIDI 2.5MG TABLET PO PRN; guaiFENesin 200 MG/10 ML 10 ML UNIT-DOSE CUPS PO PRN
[2022-08-04] MEDS ORDERED: NICOTINE 7 MG/24 HOURS TOPICAL PATCH TD PRN (13:33)
[2022-08-04] MEDS ORDERED: NICOTINE POLACRILEX 2 MG GUM BUC PRN (13:34)
[2022-08-04] MEDS: NICOTINE 10 MG CARTRIDGE (INHALER) IH PRN (16:22)
[2022-08-04] MEDS: hydrOXYzine PAMOATE 25 MG CAPSULE (FP) PO PRN (19:49)
[2022-08-04] MEDS: THIAMINE HCL 100 MG TABLET (FP) PO SCH (21:02)
[2022-08-04] MEDS: MELATONIN 5 MG TABLETS PO SCH (21:02)
[2022-08-05] MEDS: PRENATAL VITAMINS W/ FOLIC ACID TABLET (FP) PO SCH (09:02)
[2022-08-05] MEDS: hydrOXYzine PAMOATE 25 MG CAPSULE (FP) PO PRN ×2 (09:03→21:12)
[2022-08-05] MEDS ORDERED: NICOTINE 7 MG/24 HOURS TOPICAL PATCH TD SCH (10:00)
[2022-08-05] MEDS: NICOTINE 10 MG CARTRIDGE (INHALER) IH PRN ×2 (10:01→18:20)
[2022-08-05] MEDS ORDERED: BUPRENORPHINE/NALOXONE 2 MG/0.5 MG FILM PACKET SL ONE (14:00)
[2022-08-05] MEDS: BACLOFEN 10 MG TABLET (FP) PO SCH ×2 (14:06→21:12)
[2022-08-05] MEDS: MELATONIN 5 MG TABLETS PO SCH (21:12)
[2022-08-05] MEDS: THIAMINE HCL 100 MG TABLET (FP) PO SCH (21:12)
[2022-08-05] MEDS: cloNIDine HCL 0.1 MG TABLET PO SCH (21:14)
[2022-08-06] MEDS: BACLOFEN 10 MG TABLET (FP) PO SCH ×3 (06:22→21:14)
[2022-08-06] MEDS: BUPRENORPHINE/NALOXONE 2 MG/0.5 MG FILM PACKET SL SCH ×3 (06:22→17:40)
[2022-08-06] MEDS: NICOTINE 10 MG CARTRIDGE (INHALER) IH PRN ×3 (06:28→21:15)
[2022-08-06] MEDS: cloNIDine HCL 0.1 MG TABLET PO SCH ×2 (09:06→21:14)
[2022-08-06] MEDS: PRENATAL VITAMINS W/ FOLIC ACID TABLET (FP) PO SCH (09:10)
[2022-08-06] MEDS: MELATONIN 5 MG TABLETS PO SCH (21:14)
[2022-08-06] MEDS: THIAMINE HCL 100 MG TABLET (FP) PO SCH (21:14)
[2022-08-07] MEDS: BACLOFEN 10 MG TABLET (FP) PO SCH ×3 (06:21→21:22)
[2022-08-07] MEDS: BUPRENORPHINE/NALOXONE 2 MG/0.5 MG FILM PACKET SL SCH ×2 (06:21→17:24)
[2022-08-07] MEDS: NICOTINE 10 MG CARTRIDGE (INHALER) IH PRN ×4 (06:22→21:23)
[2022-08-07] MEDS: PRENATAL VITAMINS W/ FOLIC ACID TABLET (FP) PO SCH (09:07)
[2022-08-07] MEDS: cloNIDine HCL 0.1 MG TABLET PO SCH ×2 (09:07→21:22)
[2022-08-07] MEDS: MELATONIN 5 MG TABLETS PO SCH (21:22)
[2022-08-07] MEDS: THIAMINE HCL 100 MG TABLET (FP) PO SCH (21:22)
[2022-08-08] MEDS: NICOTINE 10 MG CARTRIDGE (INHALER) IH PRN ×3 (06:29→15:23)
[2022-08-08] MEDS: BACLOFEN 10 MG TABLET (FP) PO SCH ×3 (06:30→21:13)
[2022-08-08] MEDS: BUPRENORPHINE/NALOXONE 4 MG/1 MG FILM PACKET SL SCH (06:30)
[2022-08-08] MEDS: PRENATAL VITAMINS W/ FOLIC ACID TABLET (FP) PO SCH (09:00)
[2022-08-08] MEDS: cloNIDine HCL 0.1 MG TABLET PO SCH (09:00)
[2022-08-08] MEDS: THIAMINE HCL 100 MG TABLET (FP) PO SCH (21:13)
[2022-08-08] MEDS: MELATONIN 5 MG TABLETS PO SCH (21:13)
[2022-08-08] MEDS: MAG HYDROX/AL HYDROX/SIMETH 30 ML UNIT-DOSE CUP PO PRN (21:14)
[2022-08-09] MEDS: NICOTINE 10 MG CARTRIDGE (INHALER) IH PRN ×3 (06:12→21:14)
[2022-08-09] MEDS: BACLOFEN 10 MG TABLET (FP) PO SCH ×3 (06:13→21:14)
[2022-08-09] MEDS: BUPRENORPHINE/NALOXONE 4 MG/1 MG FILM PACKET SL SCH (06:13)
[2022-08-09] MEDS: PRENATAL VITAMINS W/ FOLIC ACID TABLET (FP) PO SCH (09:32)
[2022-08-09] MEDS: hydrOXYzine PAMOATE 25 MG CAPSULE (FP) PO PRN (21:14)
[2022-08-09] MEDS: MELATONIN 5 MG TABLETS PO SCH (21:14)
[2022-08-09] MEDS: THIAMINE HCL 100 MG TABLET (FP) PO SCH (21:14)
[2022-08-09] MEDS: cloNIDine HCL 0.1 MG TABLET PO PRN (21:14)
[2022-08-09] MEDS: MAG HYDROX/AL HYDROX/SIMETH 30 ML UNIT-DOSE CUP PO PRN (21:16)
[2022-08-10] MEDS: BUPRENORPHINE/NALOXONE 4 MG/1 MG FILM PACKET SL SCH (06:13)
[2022-08-10] MEDS: BACLOFEN 10 MG TABLET (FP) PO SCH ×3 (06:13→21:24)
[2022-08-10] MEDS: NICOTINE 10 MG CARTRIDGE (INHALER) IH PRN ×4 (07:38→21:25)
[2022-08-10] MEDS: PRENATAL VITAMINS W/ FOLIC ACID TABLET (FP) PO SCH (10:02)
[2022-08-10] MEDS: cloNIDine HCL 0.1 MG TABLET PO PRN (21:24)
[2022-08-10] MEDS: hydrOXYzine PAMOATE 25 MG CAPSULE (FP) PO PRN (21:24)
[2022-08-10] MEDS: THIAMINE HCL 100 MG TABLET (FP) PO SCH (21:24)
[2022-08-10] MEDS: MELATONIN 5 MG TABLETS PO SCH (21:24)
[2022-08-11] MEDS: BACLOFEN 10 MG TABLET (FP) PO SCH ×3 (06:19→21:12)
[2022-08-11] MEDS: BUPRENORPHINE/NALOXONE 4 MG/1 MG FILM PACKET SL SCH (06:20)
[2022-08-11] MEDS: NICOTINE 10 MG CARTRIDGE (INHALER) IH PRN ×2 (06:49→10:46)
[2022-08-11] MEDS: PRENATAL VITAMINS W/ FOLIC ACID TABLET (FP) PO SCH (09:23)
[2022-08-11] MEDS ORDERED: BUPRENORPHINE/NALOXONE 4 MG/1 MG FILM PACKET SL ONE (18:00)
[2022-08-11] MEDS: THIAMINE HCL 100 MG TABLET (FP) PO SCH (21:11)
[2022-08-11] MEDS: MELATONIN 5 MG TABLETS PO SCH (21:11)
[2022-08-12] MEDS: BUPRENORPHINE/NALOXONE 8 MG/2 MG FILM PACKET SL SCH (06:05)
[2022-08-12] MEDS: BACLOFEN 10 MG TABLET (FP) PO SCH ×3 (06:05→21:06)
[2022-08-12] MEDS: NICOTINE 10 MG CARTRIDGE (INHALER) IH PRN ×4 (06:06→21:06)
[2022-08-12] MEDS: PRENATAL VITAMINS W/ FOLIC ACID TABLET (FP) PO SCH (09:36)
[2022-08-12] MEDS ORDERED: BUPRENORPHINE/NALOXONE 8 MG/2 MG FILM PACKET SL SCH (10:00)
[2022-08-12] MEDS: MELATONIN 5 MG TABLETS PO SCH (21:06)
[2022-08-12] MEDS: THIAMINE HCL 100 MG TABLET (FP) PO SCH (21:06)
[2022-08-13] MEDS: BUPRENORPHINE/NALOXONE 8 MG/2 MG FILM PACKET SL SCH (06:24)
[2022-08-13] MEDS: BACLOFEN 10 MG TABLET (FP) PO SCH ×3 (06:24→21:16)
[2022-08-13] MEDS: NICOTINE 10 MG CARTRIDGE (INHALER) IH PRN ×3 (06:25→21:16)
[2022-08-13] MEDS: PRENATAL VITAMINS W/ FOLIC ACID TABLET (FP) PO SCH (10:12)
[2022-08-13] MEDS: hydrOXYzine PAMOATE 25 MG CAPSULE (FP) PO PRN ×2 (13:33→21:16)
[2022-08-13] MEDS: THIAMINE HCL 100 MG TABLET (FP) PO SCH (21:16)
[2022-08-13] MEDS: MELATONIN 5 MG TABLETS PO SCH (21:16)
[2022-08-14] MEDS: BACLOFEN 10 MG TABLET (FP) PO SCH ×3 (06:02→21:06)
[2022-08-14] MEDS: NICOTINE 10 MG CARTRIDGE (INHALER) IH PRN ×3 (06:03→21:07)
[2022-08-14] MEDS: BUPRENORPHINE/NALOXONE 8 MG/2 MG FILM PACKET SL SCH (06:03)
[2022-08-14] MEDS: PRENATAL VITAMINS W/ FOLIC ACID TABLET (FP) PO SCH (09:37)
[2022-08-14] MEDS: hydrOXYzine PAMOATE 25 MG CAPSULE (FP) PO PRN ×2 (13:16→21:06)
[2022-08-14] MEDS: MELATONIN 5 MG TABLETS PO SCH (21:06)
[2022-08-14] MEDS: THIAMINE HCL 100 MG TABLET (FP) PO SCH (21:06)
[2022-08-15] MEDS: BACLOFEN 10 MG TABLET (FP) PO SCH ×3 (06:19→21:26)
[2022-08-15] MEDS: BUPRENORPHINE/NALOXONE 8 MG/2 MG FILM PACKET SL SCH (06:19)
[2022-08-15] MEDS: NICOTINE 10 MG CARTRIDGE (INHALER) IH PRN ×4 (06:20→21:25)
[2022-08-15] MEDS: PRENATAL VITAMINS W/ FOLIC ACID TABLET (FP) PO SCH (09:58)
[2022-08-15] MEDS: hydrOXYzine PAMOATE 25 MG CAPSULE (FP) PO PRN ×2 (13:00→21:26)
[2022-08-15] MEDS: THIAMINE HCL 100 MG TABLET (FP) PO SCH (21:25)
[2022-08-15] MEDS: cloNIDine HCL 0.1 MG TABLET PO PRN (21:26)
[2022-08-15] MEDS: MELATONIN 5 MG TABLETS PO SCH (21:26)
[2022-08-16] MEDS: BACLOFEN 10 MG TABLET (FP) PO SCH ×3 (06:11→21:04)
[2022-08-16] MEDS: NICOTINE 10 MG CARTRIDGE (INHALER) IH PRN ×3 (06:13→15:42)
[2022-08-16] MEDS: BUPRENORPHINE/NALOXONE 8 MG/2 MG FILM PACKET SL SCH (06:14)
[2022-08-16] MEDS: PRENATAL VITAMINS W/ FOLIC ACID TABLET (FP) PO SCH (09:40)
[2022-08-16] MEDS: hydrOXYzine PAMOATE 25 MG CAPSULE (FP) PO PRN ×2 (13:04→21:05)
[2022-08-16] MEDS: THIAMINE HCL 100 MG TABLET (FP) PO SCH (21:04)
[2022-08-16] MEDS: MELATONIN 5 MG TABLETS PO SCH (21:04)
[2022-08-17] MEDS: BUPRENORPHINE/NALOXONE 8 MG/2 MG FILM PACKET SL SCH (06:01)
[2022-08-17] MEDS: BACLOFEN 10 MG TABLET (FP) PO SCH ×3 (06:02→21:03)
[2022-08-17] MEDS: NICOTINE 10 MG CARTRIDGE (INHALER) IH PRN ×3 (06:03→21:03)
[2022-08-17] MEDS: PRENATAL VITAMINS W/ FOLIC ACID TABLET (FP) PO SCH (09:24)
[2022-08-17] MEDS: hydrOXYzine PAMOATE 25 MG CAPSULE (FP) PO PRN (21:03)
[2022-08-17] MEDS: THIAMINE HCL 100 MG TABLET (FP) PO SCH (21:03)
[2022-08-17] MEDS: MELATONIN 5 MG TABLETS PO SCH (21:03)
[2022-08-18] MEDS: BUPRENORPHINE/NALOXONE 8 MG/2 MG FILM PACKET SL SCH (06:14)
[2022-08-18] MEDS: BACLOFEN 10 MG TABLET (FP) PO SCH ×3 (06:14→21:37)
[2022-08-18] MEDS: NICOTINE 10 MG CARTRIDGE (INHALER) IH PRN ×2 (06:14→21:38)
[2022-08-18] MEDS: PRENATAL VITAMINS W/ FOLIC ACID TABLET (FP) PO SCH (09:27)
[2022-08-18] MEDS: hydrOXYzine PAMOATE 25 MG CAPSULE (FP) PO PRN ×2 (09:27→21:37)
[2022-08-18] MEDS: MELATONIN 5 MG TABLETS PO SCH (21:37)
[2022-08-18] MEDS: THIAMINE HCL 100 MG TABLET (FP) PO SCH (21:37)
[2022-08-19] MEDS: BACLOFEN 10 MG TABLET (FP) PO SCH ×3 (06:16→21:40)
[2022-08-19] MEDS: BUPRENORPHINE/NALOXONE 8 MG/2 MG FILM PACKET SL SCH (06:16)
[2022-08-19] MEDS: NICOTINE 10 MG CARTRIDGE (INHALER) IH PRN ×3 (06:17→17:02)
[2022-08-19] MEDS: PRENATAL VITAMINS W/ FOLIC ACID TABLET (FP) PO SCH (10:11)
[2022-08-19] MEDS: hydrOXYzine PAMOATE 25 MG CAPSULE (FP) PO PRN ×2 (12:49→21:40)
[2022-08-19] MEDS: cloNIDine HCL 0.1 MG TABLET PO PRN (21:40)
[2022-08-19] MEDS: MELATONIN 5 MG TABLETS PO SCH (21:40)
[2022-08-19] MEDS: THIAMINE HCL 100 MG TABLET (FP) PO SCH (21:40)
[2022-08-20] MEDS: BACLOFEN 10 MG TABLET (FP) PO SCH ×3 (06:24→21:01)
[2022-08-20] MEDS: BUPRENORPHINE/NALOXONE 8 MG/2 MG FILM PACKET SL SCH (06:24)
[2022-08-20] MEDS: NICOTINE 10 MG CARTRIDGE (INHALER) IH PRN ×3 (06:25→15:53)
[2022-08-20] MEDS: PRENATAL VITAMINS W/ FOLIC ACID TABLET (FP) PO SCH (10:17)
[2022-08-20] MEDS: hydrOXYzine PAMOATE 25 MG CAPSULE (FP) PO PRN ×2 (10:18→21:01)
[2022-08-20] MEDS: MELATONIN 5 MG TABLETS PO SCH (21:01)
[2022-08-20] MEDS: THIAMINE HCL 100 MG TABLET (FP) PO SCH (21:01)
[2022-08-21] MEDS: BACLOFEN 10 MG TABLET (FP) PO SCH ×3 (06:07→21:24)
[2022-08-21] MEDS: BUPRENORPHINE/NALOXONE 8 MG/2 MG FILM PACKET SL SCH (06:07)
[2022-08-21] MEDS: NICOTINE 10 MG CARTRIDGE (INHALER) IH PRN ×3 (06:08→21:24)
[2022-08-21] MEDS: hydrOXYzine PAMOATE 25 MG CAPSULE (FP) PO PRN ×2 (10:12→21:24)
[2022-08-21] MEDS: PRENATAL VITAMINS W/ FOLIC ACID TABLET (FP) PO SCH (10:12)
[2022-08-21] MEDS: THIAMINE HCL 100 MG TABLET (FP) PO SCH (21:24)
[2022-08-21] MEDS: MELATONIN 5 MG TABLETS PO SCH (21:24)
[2022-08-22] MEDS: BACLOFEN 10 MG TABLET (FP) PO SCH ×2 (06:23→13:04)
[2022-08-22] MEDS: BUPRENORPHINE/NALOXONE 8 MG/2 MG FILM PACKET SL SCH (06:23)
[2022-08-22] MEDS: hydrOXYzine PAMOATE 25 MG CAPSULE (FP) PO PRN ×2 (06:24→21:24)
[2022-08-22] MEDS: NICOTINE 10 MG CARTRIDGE (INHALER) IH PRN ×3 (06:25→21:24)
[2022-08-22] MEDS: PRENATAL VITAMINS W/ FOLIC ACID TABLET (FP) PO SCH (09:57)
[2022-08-22] MEDS: MELATONIN 5 MG TABLETS PO SCH (21:23)
[2022-08-22] MEDS: THIAMINE HCL 100 MG TABLET (FP) PO SCH (21:23)
[2022-08-23] MEDS: BUPRENORPHINE/NALOXONE 8 MG/2 MG FILM PACKET SL SCH (06:15)
[2022-08-23] MEDS: NICOTINE 10 MG CARTRIDGE (INHALER) IH PRN ×4 (06:16→21:25)
[2022-08-23] MEDS: PRENATAL VITAMINS W/ FOLIC ACID TABLET (FP) PO SCH (10:18)
[2022-08-23] MEDS: MELATONIN 5 MG TABLETS PO SCH (21:25)
[2022-08-23] MEDS: hydrOXYzine PAMOATE 25 MG CAPSULE (FP) PO PRN (21:25)
[2022-08-23] MEDS: THIAMINE HCL 100 MG TABLET (FP) PO SCH (21:25)
[2022-08-23] MEDS: cloNIDine HCL 0.1 MG TABLET PO PRN (21:25)
[2022-08-23] MEDS: BACLOFEN 10 MG TABLET (FP) PO PRN (21:25)
[2022-08-24] MEDS: BUPRENORPHINE/NALOXONE 8 MG/2 MG FILM PACKET SL SCH (06:16)
[2022-08-24] MEDS: NICOTINE 10 MG CARTRIDGE (INHALER) IH PRN ×4 (06:16→21:29)
[2022-08-24] MEDS: PRENATAL VITAMINS W/ FOLIC ACID TABLET (FP) PO SCH (10:23)
[2022-08-24] MEDS: hydrOXYzine PAMOATE 25 MG CAPSULE (FP) PO PRN (21:29)
[2022-08-24] MEDS: BACLOFEN 10 MG TABLET (FP) PO PRN (21:29)
[2022-08-24] MEDS: THIAMINE HCL 100 MG TABLET (FP) PO SCH (21:29)
[2022-08-24] MEDS: MELATONIN 5 MG TABLETS PO SCH (21:30)
[2022-08-24] MEDS: cloNIDine HCL 0.1 MG TABLET PO PRN (21:30)
[2022-08-25] MEDS: BUPRENORPHINE/NALOXONE 8 MG/2 MG FILM PACKET SL SCH (06:12)
[2022-08-25] MEDS: NICOTINE 10 MG CARTRIDGE (INHALER) IH PRN ×3 (06:13→21:07)
[2022-08-25] MEDS: hydrOXYzine PAMOATE 25 MG CAPSULE (FP) PO PRN ×2 (06:13→21:07)
[2022-08-25] MEDS: PRENATAL VITAMINS W/ FOLIC ACID TABLET (FP) PO SCH (09:21)
[2022-08-25] MEDS: BACLOFEN 10 MG TABLET (FP) PO PRN ×2 (13:49→21:07)
[2022-08-25] MEDS: THIAMINE HCL 100 MG TABLET (FP) PO SCH (21:07)
[2022-08-25] MEDS: cloNIDine HCL 0.1 MG TABLET PO PRN (21:07)
[2022-08-25] MEDS: MELATONIN 5 MG TABLETS PO SCH (21:07)
[2022-08-26] MEDS ORDERED: BUPRENORPHINE/NALOXONE 8 MG/2 MG FILM PACKET SL SCH (06:00)
[2022-08-26] MEDS ORDERED: BUPRENORPHINE/NALOXONE 4 MG/1 MG FILM PACKET SL SCH (06:00)
[2022-08-26] MEDS: hydrOXYzine PAMOATE 25 MG CAPSULE (FP) PO PRN ×2 (06:13→21:27)
[2022-08-26] MEDS: NICOTINE 10 MG CARTRIDGE (INHALER) IH PRN ×3 (06:14→19:15)
[2022-08-26] MEDS: PRENATAL VITAMINS W/ FOLIC ACID TABLET (FP) PO SCH (10:30)
[2022-08-26] MEDS: BACLOFEN 10 MG TABLET (FP) PO PRN ×2 (14:49→21:27)
[2022-08-26] MEDS: MELATONIN 5 MG TABLETS PO SCH (21:26)
[2022-08-26] MEDS: THIAMINE HCL 100 MG TABLET (FP) PO SCH (21:26)
[2022-08-27] MEDS: BUPRENORPHINE/NALOXONE 2 MG/0.5 MG FILM PACKET SL SCH (06:11)
[2022-08-27] MEDS: hydrOXYzine PAMOATE 25 MG CAPSULE (FP) PO PRN ×2 (06:11→11:14)
[2022-08-27] MEDS: NICOTINE 10 MG CARTRIDGE (INHALER) IH PRN ×3 (06:12→21:35)
[2022-08-27] MEDS: BACLOFEN 10 MG TABLET (FP) PO PRN ×3 (06:48→21:34)
[2022-08-27] MEDS: PRENATAL VITAMINS W/ FOLIC ACID TABLET (FP) PO SCH (10:20)
[2022-08-27] MEDS: THIAMINE HCL 100 MG TABLET (FP) PO SCH (21:34)
[2022-08-27] MEDS: MELATONIN 5 MG TABLETS PO SCH (21:34)
[2022-08-28] MEDS: BUPRENORPHINE/NALOXONE 2 MG/0.5 MG FILM PACKET SL SCH (06:10)
[2022-08-28] MEDS: hydrOXYzine PAMOATE 25 MG CAPSULE (FP) PO PRN ×2 (06:10→21:16)
[2022-08-28] MEDS: NICOTINE 10 MG CARTRIDGE (INHALER) IH PRN ×3 (06:11→18:54)
[2022-08-28 06:53] VITALS: RESP 20
[2022-08-28] MEDS: BACLOFEN 10 MG TABLET (FP) PO PRN ×2 (10:23→18:54)
[2022-08-28] MEDS: PRENATAL VITAMINS W/ FOLIC ACID TABLET (FP) PO SCH (10:23)
[2022-08-28] MEDS: THIAMINE HCL 100 MG TABLET (FP) PO SCH (21:16)
[2022-08-28] MEDS: MELATONIN 5 MG TABLETS PO SCH (21:16)
[2022-08-29] MEDS: BUPRENORPHINE/NALOXONE 2 MG/0.5 MG FILM PACKET SL SCH (06:02)
[2022-08-29] MEDS: NICOTINE 10 MG CARTRIDGE (INHALER) IH PRN (06:03)
[2022-08-29 06:41] VITALS: BP 115/74; PULSE 62; TEMP 97.8
== END 2022-08-29 09:32 | disposition home or self-care (01) | DRG 772 ==
LOC: YASAS 13:17 → Y3E 13:19
PROVIDERS: ADMIT Allergy & Immunology; ATTEND Psychiatry & Neurology Pain Medicine
PROC: HZ42ZZZ Group Counseling for Substance Abuse Treatment, Cognitive-Behavioral (ICD-10-PCS; principal; 2022-08-04)
DX: F11.20 Opioid dependence, uncomplicated (principal); F14.20 Cocaine dependence, uncomplicated; F13.20 Sedative, hypnotic or anxiolytic dependence, uncomplicated; F16.20 Hallucinogen dependence, uncomplicated; F17.210 Nicotine dependence, cigarettes, uncomplicated; Z87.448 Personal history of other diseases of urinary system
CPT/HCPCS: J0475

== ENCOUNTER 2022-12-10 14:27 | Inpatient (IN) | payer OTHER ==
[2022-12-10 21:38] VITALS: BMI 24.3
[2022-12-10] MEDS ORDERED: NALOXONE HCL (KLOXXADO) 8 MG SPRAY NS PRN (21:56)
[2022-12-10] MEDS ORDERED: NICOTINE POLACRILEX 2 MG GUM BUC PRN (21:56)
[2022-12-10] MEDS ORDERED: POLYETHYLENE GLYCOL (HEALTHYLAX) 3350 17 GM PACKET PO PRN (21:56)
[2022-12-10] MEDS ORDERED: BISMUTH SUBSALICYLATE 524 MG/30 ML PO PRN (21:56)
[2022-12-10] MEDS ORDERED: ACETAMINOPHEN 325 MG TABLET (FP) PO PRN ×2 (21:56)
[2022-12-10] MEDS ORDERED: MAG HYDROX/AL HYDROX/SIMETH 30 ML UNIT-DOSE CUP PO PRN (21:56)
[2022-12-10] MEDS ORDERED: IBUPROFEN 400 MG TABLET (FP) PO PRN (21:56)
[2022-12-10] MEDS ORDERED: BENZOCAINE/MENTHOL (CHLORASEPTIC ) LOZENGE MM PRN (21:56)
[2022-12-10] MEDS ORDERED: MAGNESIUM HYDROX 2400MG/30ML ORAL SUSPENSION 30 ML CUP PO PRN (21:56)
[2022-12-10] MEDS ORDERED: methaDONE HCL 10 MG TABLET (FOR DETOX USE ONLY) PO ONE (21:56)
[2022-12-10] MEDS ORDERED: IBUPROFEN 600 MG TABLET (FP) PO PRN (21:56)
[2022-12-10] MEDS ORDERED: cloNIDine HCL 0.1 MG TABLET PO PRN (21:56)
[2022-12-10] MEDS ORDERED: LOPERAMIDE HCL 2 MG CAPSULE PO PRN (21:56)
[2022-12-10] MEDS ORDERED: DICYCLOMINE HCL 10 MG CAPSULE PO PRN (21:56)
[2022-12-11] MEDS: MELATONIN 5 MG TABLETS PO SCH ×2 (08:31→22:42)
[2022-12-11] MEDS: THIAMINE HCL 100 MG TABLET (FP) PO SCH ×2 (08:32→22:42)
[2022-12-11] MEDS: PRENATAL VITAMINS W/ FOLIC ACID TABLET (FP) PO SCH (10:15)
[2022-12-11 13:52] LABS: HEMATOCRIT 35.4 % (35.4-49); HEMOGLOBIN 12.2 GM/dL (11.7-16.9); MCH 31.4 pg (25.7-33.7); MCHC 34.5 g/dl (32.0-35.9); MEAN CELL VOLUME 91.2 fl (80-96); MEAN PLT VOLUME 9.7 fl (7.5-11.1); PLATELET COUNT 144 10^3/uL (134-434); RBC 3.89 M/mm3 (4.00-5.60); RDW 12.8 % (11.9-15.9); WHITE BLOOD COUNT 4.3 K/mm3 (4.0-10.0)
[2022-12-11 14:46] LABS: ALBUMIN 3.5 g/dl (3.4-5.0)
[2022-12-11 14:47] LABS: CALCIUM 8.4 mg/dL (8.5-10.1)
[2022-12-11 14:48] LABS: CREATININE 0.8 mg/dL (0.55-1.3)
[2022-12-11 14:50] LABS: BILIRUBIN,TOTAL 0.6 mg/dL (0.2-1); TOT PROT 6.4 g/dl (6.4-8.2)
[2022-12-11] MEDS: NICOTINE 10 MG CARTRIDGE (INHALER) IH PRN ×3 (14:57→22:43)
[2022-12-11] MEDS ORDERED: METHOCARBAMOL 500 MG TABLET PO PRN (22:27)
[2022-12-12] MEDS: METHOCARBAMOL 500 MG TABLET PO PRN ×2 (09:45→21:15)
[2022-12-12] MEDS: PRENATAL VITAMINS W/ FOLIC ACID TABLET (FP) PO SCH (09:46)
[2022-12-12] MEDS ORDERED: methaDONE HCL 10 MG TABLET (FOR DETOX USE ONLY) PO ONE (10:00)
[2022-12-12] MEDS: NICOTINE 10 MG CARTRIDGE (INHALER) IH PRN ×3 (10:22→21:18)
[2022-12-12] MEDS: diazePAM 5 MG TABLET PO PRN ×2 (12:02→21:16)
[2022-12-12] MEDS: MELATONIN 5 MG TABLETS PO SCH (21:15)
[2022-12-12] MEDS: THIAMINE HCL 100 MG TABLET (FP) PO SCH (21:16)
[2022-12-13] MEDS: METHOCARBAMOL 500 MG TABLET PO PRN ×2 (09:04→21:25)
[2022-12-13] MEDS: diazePAM 5 MG TABLET PO PRN ×2 (09:05→15:56)
[2022-12-13] MEDS: PRENATAL VITAMINS W/ FOLIC ACID TABLET (FP) PO SCH (09:06)
[2022-12-13] MEDS: NICOTINE 10 MG CARTRIDGE (INHALER) IH PRN ×3 (09:07→21:23)
[2022-12-13] MEDS: MELATONIN 5 MG TABLETS PO SCH (21:23)
[2022-12-13] MEDS: THIAMINE HCL 100 MG TABLET (FP) PO SCH (21:24)
[2022-12-14] MEDS: diazePAM 5 MG TABLET PO PRN ×2 (06:26→12:59)
[2022-12-14] MEDS ORDERED: methaDONE HCL 10 MG TABLET (FOR DETOX USE ONLY) PO ONE (10:00)
[2022-12-14] MEDS: PRENATAL VITAMINS W/ FOLIC ACID TABLET (FP) PO SCH (10:10)
[2022-12-14] MEDS: NICOTINE 10 MG CARTRIDGE (INHALER) IH PRN (16:53)
[2022-12-14] MEDS: THIAMINE HCL 100 MG TABLET (FP) PO SCH (21:00)
[2022-12-14] MEDS: MELATONIN 5 MG TABLETS PO SCH (21:01)
[2022-12-15] MEDS: diazePAM 5 MG TABLET PO PRN (05:57)
[2022-12-15] MEDS: NICOTINE 10 MG CARTRIDGE (INHALER) IH PRN (05:59)
[2022-12-15 06:22] VITALS: RESP 16
[2022-12-15] MEDS: PRENATAL VITAMINS W/ FOLIC ACID TABLET (FP) PO SCH (09:57)
[2022-12-15 13:23] VITALS: BP 128/81; PULSE 91; TEMP 97.7
== END 2022-12-15 01:18 | disposition other institution (70) | DRG 773 ==
LOC: YASAS 14:27 → Y3N 12-11 02:52
PROVIDERS: ADMIT Allergy & Immunology; ATTEND Surgery
PROC: HZ2ZZZZ Detoxification Services for Substance Abuse Treatment (ICD-10-PCS; principal; 2022-12-11)
DX: F11.23 Opioid dependence with withdrawal (principal); F14.20 Cocaine dependence, uncomplicated; F13.20 Sedative, hypnotic or anxiolytic dependence, uncomplicated; F16.20 Hallucinogen dependence, uncomplicated; F19.24 Other psychoactive substance dependence with psychoactive substance-induced mood disorder; F41.9 Anxiety disorder, unspecified; F32.A Depression, unspecified; Z87.891 Personal history of nicotine dependence; Z86.69 Personal history of other diseases of the nervous system and sense organs
CPT/HCPCS: 36415; 80053; 85027; 86780; C9803-CS; U0003; U0005

== ENCOUNTER 2022-12-15 13:40 | Inpatient (IN) | payer OTHER ==
[2022-12-15] MEDS ORDERED: P-EPHED 60MG/TRIPROLIDI 2.5MG TABLET PO PRN (15:05)
[2022-12-15] MEDS ORDERED: LOPERAMIDE HCL 2 MG CAPSULE PO PRN (15:05)
[2022-12-15] MEDS ORDERED: BENZOCAINE/MENTHOL (CHLORASEPTIC ) LOZENGE MM PRN (15:05)
[2022-12-15] MEDS ORDERED: ACETAMINOPHEN 325 MG TABLET (FP) PO PRN (15:05)
[2022-12-15] MEDS ORDERED: hydrOXYzine PAMOATE 25 MG CAPSULE (FP) PO PRN (15:05)
[2022-12-15] MEDS ORDERED: MAGNESIUM HYDROX 2400MG/30ML ORAL SUSPENSION 30 ML CUP PO PRN (15:05)
[2022-12-15] MEDS ORDERED: NICOTINE POLACRILEX 2 MG GUM BC PRN (15:05)
[2022-12-15] MEDS ORDERED: POLYETHYLENE GLYCOL (HEALTHYLAX) 3350 17 GM PACKET PO PRN (15:05)
[2022-12-15] MEDS ORDERED: guaiFENesin 200 MG/10 ML 10 ML UNIT-DOSE CUPS PO PRN (15:05)
[2022-12-15] MEDS ORDERED: IBUPROFEN 400 MG TABLET (FP) PO PRN (15:05)
[2022-12-15] MEDS ORDERED: PATIENT'S OWN MEDICATION (NON-FORMULARY) (Bupropion Hcl [Wellbutrin Xl] 300 MG Tab.Er.24h) PO SCH (15:15)
[2022-12-15] MEDS: PRENATAL VITAMINS W/ FOLIC ACID TABLET (FP) PO SCH (15:50)
[2022-12-15] MEDS: NICOTINE 10 MG CARTRIDGE (INHALER) IH PRN ×2 (15:53→21:30)
[2022-12-15] MEDS: THIAMINE HCL 100 MG TABLET (FP) PO SCH (21:29)
[2022-12-15] MEDS: MELATONIN 5 MG TABLETS PO SCH (21:29)
[2022-12-16] MEDS: PRENATAL VITAMINS W/ FOLIC ACID TABLET (FP) PO SCH (09:46)
[2022-12-16] MEDS: NICOTINE 10 MG CARTRIDGE (INHALER) IH PRN ×2 (09:47→13:55)
[2022-12-16] MEDS: METHOCARBAMOL 500 MG TABLET PO PRN (13:54)
[2022-12-16] MEDS: hydrOXYzine PAMOATE 25 MG CAPSULE (FP) PO PRN (13:54)
[2022-12-16] MEDS: MELATONIN 5 MG TABLETS PO SCH (21:13)
[2022-12-16] MEDS: THIAMINE HCL 100 MG TABLET (FP) PO SCH (21:13)
[2022-12-17] MEDS: METHOCARBAMOL 500 MG TABLET PO PRN (04:11)
[2022-12-17] MEDS: PRENATAL VITAMINS W/ FOLIC ACID TABLET (FP) PO SCH (09:06)
[2022-12-17] MEDS: hydrOXYzine PAMOATE 25 MG CAPSULE (FP) PO PRN ×2 (09:06→21:56)
[2022-12-17] MEDS: NICOTINE 10 MG CARTRIDGE (INHALER) IH PRN (10:14)
[2022-12-17] MEDS ORDERED: ONDANSETRON *ODT* 4 MG TABLET SL PRN (11:14)
[2022-12-17] MEDS ORDERED: BUPRENORPHINE/NALOXONE 2 MG/0.5 MG FILM PACKET SL ONE (11:15)
[2022-12-17] MEDS: THIAMINE HCL 100 MG TABLET (FP) PO SCH (21:39)
[2022-12-17] MEDS: SUVOREXANT 10 MG TABLET PO PRN (21:55)
[2022-12-18] MEDS: NICOTINE 10 MG CARTRIDGE (INHALER) IH PRN ×3 (06:08→21:31)
[2022-12-18] MEDS: PRENATAL VITAMINS W/ FOLIC ACID TABLET (FP) PO SCH (09:30)
[2022-12-18] MEDS ORDERED: BUPRENORPHINE/NALOXONE 4 MG/1 MG FILM PACKET SL SCH (10:00)
[2022-12-18] MEDS: BUPRENORPHINE/NALOXONE 4 MG/1 MG FILM PACKET SL SCH (14:46)
[2022-12-18] MEDS: THIAMINE HCL 100 MG TABLET (FP) PO SCH (21:28)
[2022-12-18] MEDS: SUVOREXANT 10 MG TABLET PO PRN (21:29)
[2022-12-18] MEDS: METHOCARBAMOL 500 MG TABLET PO PRN (21:30)
[2022-12-19] MEDS: BUPRENORPHINE/NALOXONE 4 MG/1 MG FILM PACKET SL SCH ×2 (06:07→15:19)
[2022-12-19] MEDS: NICOTINE 10 MG CARTRIDGE (INHALER) IH PRN ×4 (06:11→21:21)
[2022-12-19] MEDS: PRENATAL VITAMINS W/ FOLIC ACID TABLET (FP) PO SCH (10:16)
[2022-12-19] MEDS: THIAMINE HCL 100 MG TABLET (FP) PO SCH (21:19)
[2022-12-19] MEDS: METHOCARBAMOL 500 MG TABLET PO PRN (21:19)
[2022-12-19] MEDS: hydrOXYzine PAMOATE 25 MG CAPSULE (FP) PO PRN (21:20)
[2022-12-19] MEDS: SUVOREXANT 10 MG TABLET PO PRN (21:21)
[2022-12-20] MEDS: NICOTINE 10 MG CARTRIDGE (INHALER) IH PRN ×4 (06:02→21:23)
[2022-12-20] MEDS: BUPRENORPHINE/NALOXONE 4 MG/1 MG FILM PACKET SL SCH ×2 (06:04→15:11)
[2022-12-20] MEDS: METHOCARBAMOL 500 MG TABLET PO PRN ×2 (09:50→21:23)
[2022-12-20] MEDS: PRENATAL VITAMINS W/ FOLIC ACID TABLET (FP) PO SCH (09:50)
[2022-12-20] MEDS: THIAMINE HCL 100 MG TABLET (FP) PO SCH (21:22)
[2022-12-20] MEDS: hydrOXYzine PAMOATE 25 MG CAPSULE (FP) PO PRN (21:22)
[2022-12-20] MEDS: SUVOREXANT 10 MG TABLET PO PRN (21:22)
[2022-12-21] MEDS: BUPRENORPHINE/NALOXONE 4 MG/1 MG FILM PACKET SL SCH ×2 (06:09→14:04)
[2022-12-21] MEDS: NICOTINE 10 MG CARTRIDGE (INHALER) IH PRN ×4 (06:10→21:27)
[2022-12-21] MEDS: PRENATAL VITAMINS W/ FOLIC ACID TABLET (FP) PO SCH (09:45)
[2022-12-21] MEDS: METHOCARBAMOL 500 MG TABLET PO PRN ×2 (09:47→21:27)
[2022-12-21] MEDS: hydrOXYzine PAMOATE 25 MG CAPSULE (FP) PO PRN ×2 (09:47→21:26)
[2022-12-21] MEDS: SUVOREXANT 10 MG TABLET PO PRN (21:27)
[2022-12-21] MEDS: THIAMINE HCL 100 MG TABLET (FP) PO SCH (21:27)
[2022-12-22] MEDS: BUPRENORPHINE/NALOXONE 8 MG/2 MG FILM PACKET SL SCH ×2 (06:08→09:56)
[2022-12-22] MEDS: NICOTINE 10 MG CARTRIDGE (INHALER) IH PRN ×3 (06:09→18:27)
[2022-12-22] MEDS: PRENATAL VITAMINS W/ FOLIC ACID TABLET (FP) PO SCH (09:42)
[2022-12-22] MEDS: hydrOXYzine PAMOATE 25 MG CAPSULE (FP) PO PRN ×2 (09:43→21:15)
[2022-12-22] MEDS: METHOCARBAMOL 500 MG TABLET PO PRN ×2 (09:43→21:15)
[2022-12-22] MEDS: SUVOREXANT 10 MG TABLET PO PRN (21:15)
[2022-12-22] MEDS: THIAMINE HCL 100 MG TABLET (FP) PO SCH (21:15)
[2022-12-23] MEDS ORDERED: BUPRENORPHINE/NALOXONE 8 MG/2 MG FILM PACKET SL ONE (08:00)
[2022-12-23] MEDS: PRENATAL VITAMINS W/ FOLIC ACID TABLET (FP) PO SCH (10:25)
[2022-12-23] MEDS: NICOTINE 10 MG CARTRIDGE (INHALER) IH PRN ×2 (10:26→17:48)
[2022-12-23] MEDS: MAG HYDROX/AL HYDROX/SIMETH 30 ML UNIT-DOSE CUP PO PRN (19:31)
[2022-12-23] MEDS: METHOCARBAMOL 500 MG TABLET PO PRN (21:13)
[2022-12-23] MEDS: THIAMINE HCL 100 MG TABLET (FP) PO SCH (21:13)
[2022-12-23] MEDS: hydrOXYzine PAMOATE 25 MG CAPSULE (FP) PO PRN (21:13)
[2022-12-23] MEDS: SUVOREXANT 10 MG TABLET PO PRN (21:13)
[2022-12-24] MEDS ORDERED: BUPRENORPHINE/NALOXONE 8 MG/2 MG FILM PACKET SL SCH ×2 (06:00)
[2022-12-24] MEDS: BUPRENORPHINE/NALOXONE 8 MG/2 MG FILM PACKET SL SCH (06:02)
[2022-12-24] MEDS: NICOTINE 10 MG CARTRIDGE (INHALER) IH PRN ×3 (06:02→21:20)
[2022-12-24] MEDS: PRENATAL VITAMINS W/ FOLIC ACID TABLET (FP) PO SCH (10:09)
[2022-12-24] MEDS: METHOCARBAMOL 500 MG TABLET PO PRN ×2 (10:10→21:19)
[2022-12-24] MEDS: THIAMINE HCL 100 MG TABLET (FP) PO SCH (21:19)
[2022-12-24] MEDS: SUVOREXANT 10 MG TABLET PO PRN (21:20)
[2022-12-24] MEDS: hydrOXYzine PAMOATE 25 MG CAPSULE (FP) PO PRN (21:20)
[2022-12-25] MEDS: BUPRENORPHINE/NALOXONE 8 MG/2 MG FILM PACKET SL SCH (06:20)
[2022-12-25] MEDS: NICOTINE 10 MG CARTRIDGE (INHALER) IH PRN ×4 (06:20→21:02)
[2022-12-25] MEDS: METHOCARBAMOL 500 MG TABLET PO PRN (10:03)
[2022-12-25] MEDS: PRENATAL VITAMINS W/ FOLIC ACID TABLET (FP) PO SCH (10:03)
[2022-12-25] MEDS: THIAMINE HCL 100 MG TABLET (FP) PO SCH (22:00)
[2022-12-26] MEDS: BUPRENORPHINE/NALOXONE 8 MG/2 MG FILM PACKET SL SCH (06:06)
[2022-12-26] MEDS: NICOTINE 10 MG CARTRIDGE (INHALER) IH PRN ×4 (06:06→19:05)
[2022-12-26] MEDS: PRENATAL VITAMINS W/ FOLIC ACID TABLET (FP) PO SCH (09:54)
[2022-12-26] MEDS: SUVOREXANT 10 MG TABLET PO PRN (21:15)
[2022-12-26] MEDS: THIAMINE HCL 100 MG TABLET (FP) PO SCH (21:15)
[2022-12-26] MEDS: hydrOXYzine PAMOATE 25 MG CAPSULE (FP) PO PRN (21:15)
[2022-12-26] MEDS: METHOCARBAMOL 500 MG TABLET PO PRN (21:15)
[2022-12-27] MEDS: NICOTINE 10 MG CARTRIDGE (INHALER) IH PRN ×4 (06:21→21:17)
[2022-12-27] MEDS: BUPRENORPHINE/NALOXONE 8 MG/2 MG FILM PACKET SL SCH (06:22)
[2022-12-27] MEDS: PRENATAL VITAMINS W/ FOLIC ACID TABLET (FP) PO SCH (09:40)
[2022-12-27] MEDS: METHOCARBAMOL 500 MG TABLET PO PRN ×2 (09:41→21:17)
[2022-12-27] MEDS: THIAMINE HCL 100 MG TABLET (FP) PO SCH (21:15)
[2022-12-27] MEDS: hydrOXYzine PAMOATE 25 MG CAPSULE (FP) PO PRN (21:17)
[2022-12-27] MEDS: SUVOREXANT 10 MG TABLET PO PRN (21:17)
[2022-12-28] MEDS: BUPRENORPHINE/NALOXONE 8 MG/2 MG FILM PACKET SL SCH (06:08)
[2022-12-28] MEDS: NICOTINE 10 MG CARTRIDGE (INHALER) IH PRN ×4 (06:08→21:14)
[2022-12-28] MEDS: PRENATAL VITAMINS W/ FOLIC ACID TABLET (FP) PO SCH (10:01)
[2022-12-28] MEDS: THIAMINE HCL 100 MG TABLET (FP) PO SCH (21:11)
[2022-12-28] MEDS: SUVOREXANT 10 MG TABLET PO PRN (21:13)
[2022-12-29] MEDS: NICOTINE 10 MG CARTRIDGE (INHALER) IH PRN ×4 (06:10→21:23)
[2022-12-29] MEDS: BUPRENORPHINE/NALOXONE 8 MG/2 MG FILM PACKET SL SCH (06:10)
[2022-12-29] MEDS: PRENATAL VITAMINS W/ FOLIC ACID TABLET (FP) PO SCH (09:32)
[2022-12-29] MEDS: METHOCARBAMOL 500 MG TABLET PO PRN (21:21)
[2022-12-29] MEDS: SUVOREXANT 10 MG TABLET PO PRN (21:22)
[2022-12-29] MEDS: hydrOXYzine PAMOATE 25 MG CAPSULE (FP) PO PRN (21:22)
[2022-12-29] MEDS: THIAMINE HCL 100 MG TABLET (FP) PO SCH (21:22)
[2022-12-30] MEDS: METHOCARBAMOL 500 MG TABLET PO PRN ×2 (05:58→21:12)
[2022-12-30] MEDS: BUPRENORPHINE/NALOXONE 8 MG/2 MG FILM PACKET SL SCH (05:59)
[2022-12-30] MEDS: NICOTINE 10 MG CARTRIDGE (INHALER) IH PRN ×3 (06:00→21:13)
[2022-12-30] MEDS: PRENATAL VITAMINS W/ FOLIC ACID TABLET (FP) PO SCH (09:42)
[2022-12-30] MEDS: THIAMINE HCL 100 MG TABLET (FP) PO SCH (21:12)
[2022-12-30] MEDS: hydrOXYzine PAMOATE 25 MG CAPSULE (FP) PO PRN (21:12)
[2022-12-30] MEDS ORDERED: SUVOREXANT 10 MG TABLET PO PRN (22:00)
[2022-12-31] MEDS: BUPRENORPHINE/NALOXONE 8 MG/2 MG FILM PACKET SL SCH (06:13)
[2022-12-31] MEDS: NICOTINE 10 MG CARTRIDGE (INHALER) IH PRN ×3 (06:13→21:45)
[2022-12-31] MEDS: PRENATAL VITAMINS W/ FOLIC ACID TABLET (FP) PO SCH (09:24)
[2022-12-31] MEDS: THIAMINE HCL 100 MG TABLET (FP) PO SCH (21:44)
[2022-12-31] MEDS: METHOCARBAMOL 500 MG TABLET PO PRN (21:45)
[2023-01-01] MEDS: BUPRENORPHINE/NALOXONE 8 MG/2 MG FILM PACKET SL SCH (06:13)
[2023-01-01] MEDS: NICOTINE 10 MG CARTRIDGE (INHALER) IH PRN ×3 (06:14→21:17)
[2023-01-01] MEDS: hydrOXYzine PAMOATE 25 MG CAPSULE (FP) PO PRN ×2 (09:49→21:17)
[2023-01-01] MEDS: PRENATAL VITAMINS W/ FOLIC ACID TABLET (FP) PO SCH (09:49)
[2023-01-01] MEDS: METHOCARBAMOL 500 MG TABLET PO PRN (09:50)
[2023-01-01] MEDS: THIAMINE HCL 100 MG TABLET (FP) PO SCH (21:17)
[2023-01-02] MEDS: BUPRENORPHINE/NALOXONE 8 MG/2 MG FILM PACKET SL SCH (06:13)
[2023-01-02] MEDS: NICOTINE 10 MG CARTRIDGE (INHALER) IH PRN ×4 (06:15→21:24)
[2023-01-02] MEDS: PRENATAL VITAMINS W/ FOLIC ACID TABLET (FP) PO SCH (10:43)
[2023-01-02] MEDS: hydrOXYzine PAMOATE 25 MG CAPSULE (FP) PO PRN ×2 (10:43→21:23)
[2023-01-02] MEDS: METHOCARBAMOL 500 MG TABLET PO PRN ×2 (10:43→21:23)
[2023-01-02] MEDS: MAG HYDROX/AL HYDROX/SIMETH 30 ML UNIT-DOSE CUP PO PRN (20:14)
[2023-01-02] MEDS: THIAMINE HCL 100 MG TABLET (FP) PO SCH (21:23)
[2023-01-03] MEDS: NICOTINE 10 MG CARTRIDGE (INHALER) IH PRN ×3 (06:08→16:59)
[2023-01-03] MEDS: BUPRENORPHINE/NALOXONE 8 MG/2 MG FILM PACKET SL SCH (06:08)
[2023-01-03] MEDS: hydrOXYzine PAMOATE 25 MG CAPSULE (FP) PO PRN (06:08)
[2023-01-03] MEDS: PRENATAL VITAMINS W/ FOLIC ACID TABLET (FP) PO SCH (09:47)
[2023-01-03] MEDS: THIAMINE HCL 100 MG TABLET (FP) PO SCH (22:48)
[2023-01-04] MEDS: NICOTINE 10 MG CARTRIDGE (INHALER) IH PRN ×4 (06:18→21:24)
[2023-01-04] MEDS: BUPRENORPHINE/NALOXONE 8 MG/2 MG FILM PACKET SL SCH (06:18)
[2023-01-04] MEDS: PRENATAL VITAMINS W/ FOLIC ACID TABLET (FP) PO SCH (09:47)
[2023-01-04] MEDS: hydrOXYzine PAMOATE 25 MG CAPSULE (FP) PO PRN ×2 (09:48→21:24)
[2023-01-04] MEDS: METHOCARBAMOL 500 MG TABLET PO PRN (09:48)
[2023-01-04] MEDS: THIAMINE HCL 100 MG TABLET (FP) PO SCH (21:23)
[2023-01-05] MEDS: BUPRENORPHINE/NALOXONE 8 MG/2 MG FILM PACKET SL SCH (06:15)
[2023-01-05] MEDS: NICOTINE 10 MG CARTRIDGE (INHALER) IH PRN ×3 (06:16→16:26)
[2023-01-05] MEDS: PRENATAL VITAMINS W/ FOLIC ACID TABLET (FP) PO SCH (09:36)
[2023-01-05] MEDS: METHOCARBAMOL 500 MG TABLET PO PRN (09:36)
[2023-01-05] MEDS: hydrOXYzine PAMOATE 25 MG CAPSULE (FP) PO PRN (09:36)
[2023-01-05] MEDS: THIAMINE HCL 100 MG TABLET (FP) PO SCH (21:21)
[2023-01-06] MEDS: BUPRENORPHINE/NALOXONE 8 MG/2 MG FILM PACKET SL SCH (06:02)
[2023-01-06] MEDS: NICOTINE 10 MG CARTRIDGE (INHALER) IH PRN ×3 (06:03→21:23)
[2023-01-06] MEDS: PRENATAL VITAMINS W/ FOLIC ACID TABLET (FP) PO SCH (09:44)
[2023-01-06] MEDS: METHOCARBAMOL 500 MG TABLET PO PRN (09:45)
[2023-01-06] MEDS: THIAMINE HCL 100 MG TABLET (FP) PO SCH (21:23)
[2023-01-06] MEDS: SUVOREXANT 10 MG TABLET PO PRN (21:24)
[2023-01-07] MEDS: BUPRENORPHINE/NALOXONE 8 MG/2 MG FILM PACKET SL SCH (05:58)
[2023-01-07] MEDS: NICOTINE 10 MG CARTRIDGE (INHALER) IH PRN ×4 (06:35→21:20)
[2023-01-07] MEDS: PRENATAL VITAMINS W/ FOLIC ACID TABLET (FP) PO SCH (10:40)
[2023-01-07] MEDS: METHOCARBAMOL 500 MG TABLET PO PRN (21:20)
[2023-01-07] MEDS: SUVOREXANT 10 MG TABLET PO PRN (21:20)
[2023-01-07] MEDS: hydrOXYzine PAMOATE 25 MG CAPSULE (FP) PO PRN (21:20)
[2023-01-07] MEDS: THIAMINE HCL 100 MG TABLET (FP) PO SCH (21:20)
[2023-01-08] MEDS: BUPRENORPHINE/NALOXONE 8 MG/2 MG FILM PACKET SL SCH (06:10)
[2023-01-08] MEDS: hydrOXYzine PAMOATE 25 MG CAPSULE (FP) PO PRN ×2 (06:27→21:19)
[2023-01-08] MEDS: NICOTINE 10 MG CARTRIDGE (INHALER) IH PRN ×4 (06:27→21:19)
[2023-01-08] MEDS: PRENATAL VITAMINS W/ FOLIC ACID TABLET (FP) PO SCH (09:55)
[2023-01-08] MEDS: METHOCARBAMOL 500 MG TABLET PO PRN (21:19)
[2023-01-08] MEDS: SUVOREXANT 10 MG TABLET PO PRN (21:19)
[2023-01-08] MEDS: THIAMINE HCL 100 MG TABLET (FP) PO SCH (21:19)
[2023-01-09] MEDS: BUPRENORPHINE/NALOXONE 8 MG/2 MG FILM PACKET SL SCH (06:13)
[2023-01-09 07:21] VITALS: RESP 18
[2023-01-09] MEDS: PRENATAL VITAMINS W/ FOLIC ACID TABLET (FP) PO SCH (09:51)
[2023-01-09] MEDS: METHOCARBAMOL 500 MG TABLET PO PRN (09:52)
[2023-01-09] MEDS: hydrOXYzine PAMOATE 25 MG CAPSULE (FP) PO PRN (09:52)
[2023-01-09] MEDS: NICOTINE 10 MG CARTRIDGE (INHALER) IH PRN ×3 (12:19→21:12)
[2023-01-09] MEDS: THIAMINE HCL 100 MG TABLET (FP) PO SCH (21:10)
[2023-01-09] MEDS: SUVOREXANT 10 MG TABLET PO PRN (21:11)
[2023-01-10] MEDS: NICOTINE 10 MG CARTRIDGE (INHALER) IH PRN ×3 (06:00→16:14)
[2023-01-10] MEDS: BUPRENORPHINE/NALOXONE 8 MG/2 MG FILM PACKET SL SCH (06:01)
[2023-01-10] MEDS: PRENATAL VITAMINS W/ FOLIC ACID TABLET (FP) PO SCH (10:03)
[2023-01-10] MEDS: METHOCARBAMOL 500 MG TABLET PO PRN (10:05)
[2023-01-10] MEDS: hydrOXYzine PAMOATE 25 MG CAPSULE (FP) PO PRN (10:05)
[2023-01-10] MEDS: THIAMINE HCL 100 MG TABLET (FP) PO SCH (22:31)
[2023-01-11] MEDS: NICOTINE 10 MG CARTRIDGE (INHALER) IH PRN ×3 (00:12→21:23)
[2023-01-11] MEDS: BUPRENORPHINE/NALOXONE 8 MG/2 MG FILM PACKET SL SCH (06:15)
[2023-01-11] MEDS: PRENATAL VITAMINS W/ FOLIC ACID TABLET (FP) PO SCH (09:55)
[2023-01-11] MEDS: hydrOXYzine PAMOATE 25 MG CAPSULE (FP) PO PRN ×2 (09:56→21:22)
[2023-01-11] MEDS: THIAMINE HCL 100 MG TABLET (FP) PO SCH (21:21)
[2023-01-11] MEDS: METHOCARBAMOL 500 MG TABLET PO PRN (21:22)
[2023-01-12] MEDS: BUPRENORPHINE/NALOXONE 8 MG/2 MG FILM PACKET SL SCH (06:13)
[2023-01-12] MEDS: PRENATAL VITAMINS W/ FOLIC ACID TABLET (FP) PO SCH (10:02)
[2023-01-12] MEDS: NICOTINE 10 MG CARTRIDGE (INHALER) IH PRN ×3 (10:03→21:30)
[2023-01-12] MEDS: hydrOXYzine PAMOATE 25 MG CAPSULE (FP) PO PRN ×2 (10:04→21:31)
[2023-01-12] MEDS: THIAMINE HCL 100 MG TABLET (FP) PO SCH (21:31)
[2023-01-12] MEDS: METHOCARBAMOL 500 MG TABLET PO PRN (21:31)
[2023-01-13] MEDS ORDERED: BUPRENORPHINE/NALOXONE 8 MG/2 MG FILM PACKET SL SCH (06:00)
[2023-01-13 07:04] VITALS: BP 122/78; PULSE 72; TEMP 96.9
[2023-01-13] MEDS: PRENATAL VITAMINS W/ FOLIC ACID TABLET (FP) PO SCH (09:44)
[2023-01-13] MEDS: NICOTINE 10 MG CARTRIDGE (INHALER) IH PRN (09:44)
[2023-01-13] MEDS: hydrOXYzine PAMOATE 25 MG CAPSULE (FP) PO PRN (09:45)
== END 2023-01-13 10:02 | disposition home or self-care (01) | DRG 772 ==
LOC: YASAS 13:40 → Y5N 13:41
PROVIDERS: ADMIT Allergy & Immunology; ATTEND Allergy & Immunology
PROC: HZ42ZZZ Group Counseling for Substance Abuse Treatment, Cognitive-Behavioral (ICD-10-PCS; principal; 2022-12-15)
DX: F11.20 Opioid dependence, uncomplicated (principal); F17.210 Nicotine dependence, cigarettes, uncomplicated; F19.24 Other psychoactive substance dependence with psychoactive substance-induced mood disorder; F41.9 Anxiety disorder, unspecified; Z59.00 Homelessness unspecified
CPT/HCPCS: 36415; 86803

== ENCOUNTER 2025-07-01 14:47 | Inpatient (IN) | payer OTHER ==
[2025-07-01 16:09] VITALS: BMI 24.8
[2025-07-01] MEDS ORDERED: guaiFENesin 600 MG TABLET.ER (FP) PO PRN (17:05)
[2025-07-01] MEDS ORDERED: ACETAMINOPHEN 325 MG TABLET (FP) PO PRN (17:05)
[2025-07-01] MEDS ORDERED: POLYETHYLENE GLYCOL (HEALTHYLAX) 3350 17 GM PACKET PO PRN (17:05)
[2025-07-01] MEDS ORDERED: BENZOCAINE/MENTHOL (CHLORASEPTIC ) LOZENGE MM PRN (17:05)
[2025-07-01] MEDS ORDERED: BENZONATATE 200 MG CAPSULE PO PRN (17:05)
[2025-07-01] MEDS ORDERED: BISMUTH SUBSALICYLATE 524 MG/30 ML PO PRN (17:05)
[2025-07-01] MEDS ORDERED: ONDANSETRON *ODT* 4 MG TABLET SL PRN (17:05)
[2025-07-01] MEDS ORDERED: NALOXONE (NARCAN) HCL 4 MG/0.1 ML SPRAY NS PRN (17:05)
[2025-07-01] MEDS ORDERED: IBUPROFEN 600 MG TABLET (FP) PO PRN (17:05)
[2025-07-01] MEDS ORDERED: MAG HYDROX/AL HYDROX/SIMETH 30 ML UNIT-DOSE CUP PO PRN (17:05)
[2025-07-01] MEDS ORDERED: MAGNESIUM HYDROX 2400MG/30ML ORAL SUSPENSION 30 ML CUP PO PRN (17:05)
[2025-07-01] MEDS ORDERED: LOPERAMIDE HCL 2 MG CAPSULE PO PRN (17:05)
[2025-07-01] MEDS ORDERED: DICYCLOMINE HCL 10 MG CAPSULE PO PRN (17:05)
[2025-07-01] MEDS ORDERED: IBUPROFEN 400 MG TABLET (FP) PO PRN (17:05)
[2025-07-01] MEDS ORDERED: hydrOXYzine PAMOATE 25 MG CAPSULE (FP) PO PRN (17:05)
[2025-07-01] MEDS ORDERED: ALBUTEROL SO4 HFA INHALER IH PRN (17:56)
[2025-07-01] MEDS: THIAMINE 100 MG TABLET PO SCH (22:20)
[2025-07-01] MEDS: MELATONIN 5 MG TABLETS PO SCH (22:20)
[2025-07-01] MEDS: METHOCARBAMOL 500 MG TABLET PO PRN (22:20)
[2025-07-02] MEDS: PRENATAL VITAMINS W/ FOLIC ACID TABLET (FP) PO SCH (09:41)
[2025-07-02 09:42] LABS: MCHC 31.2 g/dl (32.3-36.5); MEAN CELL VOLUME 96.0 fl (79.0-92.2); MEAN PLT VOLUME 11.0 fl (9.4-12.4); RDW 13.1 % (12.0-15.6)
[2025-07-02 10:04] LABS: GLUCOSE,RANDOM 69 mg/dL (74-106); TOT PROT 7.4 g/dl (6.4-8.2)
[2025-07-02 10:05] LABS: CO2 29 mmol/L (21-32)
[2025-07-02 10:07] LABS: ALK PHOS 54 U/L (40-150)
[2025-07-02 10:10] LABS: CREATININE 0.86 mg/dL (0.55-1.3); SGOT/AST 24 U/L (5-34); SGPT/ALT 32 U/L (0-55)
[2025-07-02] MEDS: SUVOREXANT 10 MG TABLET PO PRN (22:59)
[2025-07-03 09:22] VITALS: RESP 16
[2025-07-03 13:03] VITALS: BP 149/83; PULSE 71; TEMP 97.7
== END 2025-07-03 13:45 | disposition home or self-care (01) | DRG 773 ==
LOC: YASAS 14:47 → Y6N 17:23
PROVIDERS: ADMIT Neuromusculoskeletal Medicine & OMM; ATTEND Student in an Organized Health Care Education/Training Program
PROC: HZ2ZZZZ Detoxification Services for Substance Abuse Treatment (ICD-10-PCS; principal; 2025-07-01)
DX: F11.23 Opioid dependence with withdrawal (principal); F10.230 Alcohol dependence with withdrawal, uncomplicated; F13.230 Sedative, hypnotic or anxiolytic dependence with withdrawal, uncomplicated; F14.20 Cocaine dependence, uncomplicated; F16.20 Hallucinogen dependence, uncomplicated; F17.210 Nicotine dependence, cigarettes, uncomplicated; F19.282 Other psychoactive substance dependence with psychoactive substance-induced sleep disorder; F19.280 Other psychoactive substance dependence with psychoactive substance-induced anxiety disorder; F19.24 Other psychoactive substance dependence with psychoactive substance-induced mood disorder
CPT/HCPCS: 36415; 80053; 80307; 85027; 86780; 93005; 93010